=== PATIENT | female | born 1945 | race Caucasian/White ===

== ENCOUNTER 2019-11-11 11:25 | Emergency (ER) | payer MEDICARE, OTHER, SELFPAY ==
[2019-11-11 11:39] VITALS: BP 132/64; PULSE 60; RESP 18; TEMP 36.5; O2SAT 99; BMI 23.1
--- NOTE | 2019-11-11 11:44 | PC.NURSE ---
Patient sent back out to waiting area following triage as no ER rooms are available at this time. Will continue to monitor patient.
[2019-11-11 12:25] LABS: Basophils # 0.1 10^3/uL (0.0-0.1); Basophils % 0.7 %; Eosinophils % 0.2 %; Hematocrit 40.2 % (37.0-47.0); Hemoglobin 12.6 g/dL (11.5-15.3); Lymphocytes # 1.7 10^3/uL (0.8-4.8); Lymphocytes % 19.7 %; Mean Corpuscular HGB Conc 31.3 g/dL (30.0-36.0); Mean Corpuscular Hemoglobin 29.2 pg (28.0-34.0); Mean Corpuscular Volume 93.1 fL (81-99); Mean Platelet Volume 10.5 fL (7.4-10.4); Monocytes # 0.5 10^3/uL (0.2-0.9); Monocytes % 6.1 %; Neutrophils # 6.3 10^3/uL (1.8-7.7); Neutrophils % 73.1 %; Nucleated Red Blood Cells % 0 %; Platelet Count 346 10^3/cmm (130-400); Red Blood Count 4.32 10^6/uL (4.1-5.3); Red Cell Distribution Width 13.4 % (12.1-15.1); White Blood Count 8.7 10^3/uL (4.0-10.0)
[2019-11-11 12:40] LABS: Alanine Aminotransferase 6 U/L (0-33); Albumin Level 3.8 g/dL (3.5-5.2); Alkaline Phosphatase 91 IU/L (35-105); Aspartate Amino Transferase 16 U/L (0-32); Blood Urea Nitrogen 14 mg/dL (8-23); Calcium 9.3 mg/dL (8.5-10.5); Carbon Dioxide 23 mmol/L (22-29); Chloride 104 mmol/L (98-107); Globulin 2.7 g/dL (1.3-4.6); Glucose 103 mg/dL (74-106); Lipase 30 U/L (13-60); Sodium 138 mmol/L (136-145); Total Bilirubin 0.7 mg/dL (0.15-1.2); Total Protein 6.5 g/dL (6.6-8.7)
[2019-11-11 14:33] LABS: Add Urine Microscopic? YES; Bilirubin Urine 1+ (NEGATIVE); Blood Urine Neg (Negative); Glucose Urine UA Norm (Normal); Ketones Urine 2+ (Negative); Leukocyte Esterase Urine Negative (Negative); Nitrate Urine Negative (Negative); Protein Urine 1+ (Negative); Urine Appearance Clear (CLEAR); Urine Color Yellow (Yellow); Urobilinogen Urine 1 mg/dL (Negative); pH Urine 5 (5-7)
[2019-11-11 14:36] LABS: Bacteria Urine 1+; Squamous Epithelial Cell Urine 0-4 (0-5); WBC Urine 0-4 /hpf (0-5)
[2019-11-11 16:17] VITALS: BP 134/53; PULSE 72; RESP 16; TEMP 36.4; O2SAT 98
--- NOTE | 2019-11-11 16:35 | ECG_ITS ---
Measurements Intervals [place] Rate: 60 P: 62 NE: 153 QRS: 3 QRSD: 76 T: 15 QT: 424 QTc: 426 SINUS RHYTHM NONSPECIFIC T-WAVE ABNORMALITY Compared to ECG 04/10/2019 22:18:31 No significant changes Electronically Signed On 11-11-2019 21:02:46 CATALOGUE CLERK by Domonique Simms M.D. [id number]
--- NOTE | 2019-11-11 16:37 | ED_ITS ---
HPI - Nausea/Vomiting/Diarrhea General: Chief complaint: Nausea/Vomiting/Diarrhea Stated complaint: N/V Time Seen by Provider: 11/11/19 16:05 Source: patient Mode of arrival: ambulatory History of Present Illness: MD elicited complaint: nausea and vomiting Onset (ago): week(s) (3) Description of vomiting: watery Description of diarrhea: other (denies diarrhea) Associated nausea: Yes Associated abdominal pain: No Location of pain: None Exacerbating factors: none Relieving factors: none Associated symtoms: Reports altered mental status (pt with history of dementia ), dizziness and nausea; Denies anxiety, bloating, change in vision, chest pain, cough, diaphoresis, decreased urine output, dysuria, headache(s) or palpitations Review of Systems Const: Denies: diaphoresis Eyes: Denies: change in vision Card: Denies: chest pain or palpitations GI: Reports: nausea; Denies: bloating : Denies: painful urination Neuro: Reports: dizziness; Denies: headache Psych: Denies: anxiety PFSH ED PFSH: Statuses (acute, chronic, etc) shown below reflect problem list status as previously entered and may not be historically accurate Social History Smoking and tobacco status: never smoked Physical Exam Const: COMMON NORMALS: no apparent distress and oriented x3 EXAM LIMITATIONS: altered mental status (pt with history of dementia ) and other limitations (dementia) GENERAL APPEARANCE: cooperative; not ill appearing ORIENTATION/CONSCIOUSNESS: Yes awake, Yes oriented to person, Yes oriented to place and Yes oriented to time HENMT: COMMON NORMALS: normocephalic, head/scalp atraumatic, external nose normal, nasal mucous membranes and turbinates normal, moist oral mucous membra heather, oropharynx normal, dentition normal and gingiva normal HEAD & SCALP: normocephalic and atraumatic FACE & SINUS: normal facial exam NOSE: external nose normal and nasal mucous membranes and turbinates normal MOUTH: oral and palatal mucosa normal, lip normal, tongue normal and salivary glands and ducts normal THROAT: posterior oropharynx normal, tonsils normal and uvula midline Eye: COMMON NORMALS: PERRL, EOMs intact bilaterally, conjunctivae normal, no scleral icterus and no papilledema CONJUNCTIVA: Yes conjunctivae normal PUPIL: Yes PERRL DIRECT OPHTHALMOSCOPY: Yes no papilledema Neck/C-Spine: COMMON NORMALS: full ROM, no lymphadenopathy, supple, no meningeal signs and no JVD Chest: COMMONS NORMALS: inspection of chest normal and palpation of chest normal Resp: COMMON NORMALS: normal respiratory effort, no retractions, no use of accessory muscles and clear to auscultation bilaterally AUSCULTATION: clear to auscultation bilaterally Cardio: COMMON NORMALS: no JVD, regular rate and regular rhythm RATE: regular rate RHYTHM: regular rhythm GI: COMMON NORMALS: normal to inspection, nondistended, normoactive bowel sounds, soft to palpation, non-tender, no hepatosplenomegaly, no masses and no bruits PALPATION: Yes soft and Yes no hepatosplenomegaly : COMMON NORMALS: Yes no CVA tenderness and Yes external appearance normal BLADDER/KIDNEY EXAM: Yes no CVA tenderness Back/Pelvis: COMMON NORMALS: no CVA tenderness, thoracic and lumbar spine normal to inspection, no thoracic nor lumbar tenderness and thoraco-lumbar ROM normal Extremity: COMMON NORMALS: normal to inspection, full ROM and normal capillary refill Neuro: COMMON NORMALS: oriented x3, CN's II-XII intact bilaterally, moves all extremities, no focal motor deficits and no sensory deficits noted SENSORIUM/ORIENTATION: Yes oriented to person, Yes oriented to place and Yes oriented to time MENINGEAL SIGNS: Yes no meningeal signs Psych: COMMON NORMALS: mental status grossly normal, thought process normal, cooperative, affect normal, speech normal, activity/motor behavior normal, denies hallucinations, denies homicidal ideation and denies suicidal ideation SPEECH: Yes normal speech THOUGHT PROCESS: normal thought process Skin: COMMON NORMALS: no rashes or lesions noted, no wounds, skin turgor normal, no jaundice, no petechiae and no mottling GENERAL SKIN EXAM: no ra shes or lesions noted and turgor normal Course ED course: Patient is well-appearing nontoxic in no acute distress. Patient's labs do not reveal any concerning findings. Patient's EKG shows a sinus rhythm with a ventricular rate of 60 bpm patient was given 500 mL's of normal saline as well as Zofran 4 mg IV. Patient did have clinical improvement with this. Patient did not have any episodes of vomiting while in the emergency department patient tolerated p.o. fluids without difficulty. Patient does not have any chest pain or shortness of breath patient is afebrile. Patient states her doctor recently took her off of Zantac and put her on Pepcid and she is wondering if this is causing her nausea. pulls me to side and states that she has Alzheimer's and is not sure if she is actively vomiting or if this is related to her dementia. Patient's orthostatics were negative. I have advised patient to advance her diet as tolerated. To call her PCP in a.m. and discuss any needed med changes. Return precautions advised home care instructions reviewed. Patient does not have any abdominal pain or back pain. Patient does not have any blood in her vomit or stool. Patient does not have any urinary symptoms. Vital Signs: Vital signs: Vital Signs Temperature 97.6 F 11/11/19 16:17 Pulse Rate 71 11/11/19 17:14 Respiratory Rate 16 11/11/19 16:17 Blood Pressure 137/90 11/11/19 17:14 Pulse Oximetry 98 11/11/19 16:17 MDM - Nausea/Vomiting/Diarrhea Lab Data: Labs: Lab Results 11/11/19 11/11/19 11/11/19 Range/Units 12:13 12:13 14:06 WBC 8.7 (4.0-10.0) 10^3/ uL RBC 4.32 (4.1-5.3) 10^6/u L Hgb 12.6 (11.5-15.3) g/dL Hct 40.2 (37.0-47.0) % MCV 93.1 (81-99) fL MCH 29.2 (28.0-34.0) pg MCHC 31.3 (30.0-36.0) g/dL RDW 13.4 (12.1-15.1) % Plt Count 346 (130-400) 10^3/c mm MPV 10.5 H (7.4-10.4) fL Neut % (Auto) 73.1 % Lymph % (Auto) 19.7 % [place] % (Auto) 6.1 % Eos % (Auto) 0.2 % Baso % (Auto) 0.7 % Neut # (Auto) 6.3 (1.8-7.7) 10^3/u L Lymph # (Auto) 1.7 (0.8-4.8) 10^3/u L [place] # (Auto) 0.5 (0.2-0.9) 10^3/u L Eos # (Auto) 0.0 (0.0-0.8) 10^3/u L Baso # (Auto) 0.1 (0.0-0.1) 10^3/u L Nucleated RBC % (a uto) 0 % Nucleated RBCs # 0.0 /100WBC Sodium 138 (136-145) mmol/L Potassium 4.0 (3.5-5.1) mmol/L Chloride 104 (98-107) mmol/L Carbon Dioxide 23 (22-29) mmol/L Anion Gap 15.0 (5-19) BUN 14 (8-23) mg/dL Creatinine 0.8 (0.5-0.9) mg/dL Glucose 103 (74-106) mg/dL Calcium 9.3 (8.5-10.5) mg/dL Total Bilirubin 0.7 (0.15-1.2) mg/dL AST 16 (0-32) U/L ALT 6 (0-33) U/L Alkaline Phosphata se 91 (35-105) IU/L Total Protein 6.5 L (6.6-8.7) g/dL Albumin 3.8 (3.5-5.2) g/dL Globulin 2.7 (1.3-4.6) g/dL Lipase 30 (13-60) U/L Urine Color Yellow (Yellow) Urine Appearance Clear (CLEAR) Urine pH 5 (5-7) Ur Specific Gravit y 1.030 (1.005-1.030) Urine Protein 1+ H (Negative) Urine Glucose (UA) Norm (Normal) Urine Ketones 2+ H (Negative) Urine Occult Blood Neg (Negative) Urine Nitrate Negative (Negative) Urine Bilirubin 1+ H (NEGATIVE) Urine Urobilinogen 1 H (Negative) mg/dL Ur Leukocyte Alecia ase Negative (Negative) Urine RBC None (0-2) /hpf Urine WBC 0-4 H (0-5) /hpf Ur Squamous Epith Cells 0-4 H (0-5) Urine Bacteria 1+ H (NONE) Discharge Plan Discharge Patient Disposition: Home, Self-Care Clinical Impression: Gastroenteritis Condition: Stable Referrals: Rashida Bernstein MD [Primary Care Provider] - Discharge Diet: Advance as tolerated Discharge Activity: Resume usual activity Patient Instructions: Acute Nausea and Vomiting (ED) Activity Restrictions/Additional Instructions: Please call your PCP tomorrow to inform of visit. Please eat a bland diet for next few days and then advance as tolerated Please continue to take meds as prescribed Please return to ER with any worsening of symptoms Coding Level of Care Code ED Punch Machine Hand for Rina Fuentes
[2019-11-11 17:14] VITALS: BP 118/77; BP 137/90; BP 138/68; PULSE 60; PULSE 71; PULSE 72
[2019-11-11] MEDS: ondansetron 2 mg/ML SDV 2 mL 4 MG IVP (17:20)
[2019-11-11] MEDS: sodium chloride 0.9% 500 ML IV (17:25)
[2019-11-11 18:26] VITALS: BP 126/76; PULSE 57; RESP 16; TEMP 37.3; O2SAT 100
== END 2019-11-11 18:28 | disposition home or self-care (01) ==
PROVIDERS: Physician Assistant; Emergency Provider Registered Nurse; Family Provider Family Medicine; PCP Family Medicine
DX: K52.9 Noninfective gastroenteritis and colitis, unspecified (principal)
CPT/HCPCS: 36415; 80053; 81001; 83690; 85025; 93005; 96360; 96361; 96374; 99283; A9270; J2405; J7040

== ENCOUNTER 2020-01-28 17:52 | Emergency (ER) | payer MEDICARE, OTHER, SELFPAY ==
[2020-01-28 17:57] VITALS: BP 147/75; PULSE 67; RESP 18; TEMP 36.4; O2SAT 100; BMI 23.1
--- NOTE | 2020-01-28 18:08 | XR_ITS ---
WS: [id number] LUMBAR SPINE TECHNIQUE: 3 views of the lumbar spine CLINICAL INFORMATION: back pain COMPARISON: None. FINDINGS: Mild lumbar curve convex left. Osteopenia. Cholecystectomy clips. Slight anterolisthesis L5 on S1. Sl ight anterolisthesis L3 on L4. Disc space narrowing worse at L3-L4 and L5-S1. Moderate facet arthropa thy L5-S1. Chronic anterior anterior wedging T12. XR/XR lumbar spine 2-3V* [id number] IMPRESSION: 1. Mild lumbar curve convex left. 2. No acute appearing lumbar compression fractures. 3. Moderate spondylitic changes with mild disc space narrowing L3-L4 and L5-S1 . 4. Grade 1 anterolisthesis L5 on S1.
--- NOTE | 2020-01-28 18:08 | XR_ITS ---
WS: [id number] THORACIC SPINE TECHNIQUE: 3 views of the thoracic spine CLINICAL INFORMATION: back pain COMPARISON: None. FINDINGS: Thoracic curve convex right. Hypertrophic changes thoracic spine. Moderate thoracic kyphosis. Hypertr ophic changes thoracic spine. Mild chronic anterior wedging in the upper thoracic spine. No acute lucita earing compression fractures. Calcified granuloma right lower lobe. Aortic calcification. Cholecystec lyle clips. XR/XR thoracic spine 3V* [id number] IMPRESSION: 1. No acute thoracic spine findings 2. Mild thoracic curve convex right with mild thoracic kyphosis. 3. Moderate spondylitic changes.
--- NOTE | 2020-01-28 18:09 | ED_ITS ---
HPI - Back Pain/Injury General: Chief Complaint: Back Pain/Injury Stated Complaint: BACK PAIN Time Seen by Provider: 01/28/20 17:59 Source: patient Mode of arrival: EMS Limitations: no limitations History of Present Illness: HPI Narrative: Patient is a very nice 75-year-old female who presents to ED today via EMS for complaints of back pain. Patient tells me earlier today she laid down on the floor to take a nap (patient tells me this is normal for her as she likes to lie on the floor for her naps) and when she awoke she had mid to lower back pain. Patient tells me she has had this pain intermittently over the past few months and states it will normally subside on its own. She describes the pain as spasm-like when it does come on. There is no radiation into her lower extremities. She does not complain of abdominal or chest pains. She states since she has awoken from her nap, apart from her back pain, she feels completely normal. MD elicited complaint: back pain Pertinent past history: prior back pain Onset (ago): hour(s) Timing: intermittent Severity: mild Similar Symptoms Previously: Yes Quality: spasming Location: lumbar spine (upper) and thoracic spine (lower) Radiation: none Exacerbating factors: none Relieving factors: none Associated symptoms: Reports no associated symptoms; Deny abdominal pain, chills, difficulty walking, dysuria, fever(s), nausea, syncope, urinary urgency or vomiting Work related injury: No Review of Systems General: Reports: 10 or more systems reviewed and unremarkable except in HPI and below Const: Denies: fever or chills Eyes: Denies: change in vision or blurry vision Card: Denies: chest pain, palpitations, irregular heart rhythm, edema, swellin g of feet/ankles, lightheadedness, syncope, pre-syncope, shortness of breath on exertion, shortness of breath when lying down, leg pain with exertion or bluish discoloration of hands/feet Resp: Denies: shortness of breath, productive cough, non-productive cough, pain on inspiration, coughing up blood or chest congestion GI: Denies: abdominal pain, nausea, vomiting or diarrhea : Denies: flank pain, difficulty urinating, painful urination, urinary frequency, urinary urgency or urinary hesitancy Musc: Reports: back pain; Denies: neck pain, extremity pain, extremity swelling, joint pain, joint swelling or limited range of motion Skin/Breast: Denies: rash Neuro: Denies: headache, numbness in extremities, weakness in extremities, changes in sensation, lack of coordination, difficulty walking, frequent falls, dizziness, confusion or slurred speech PFSH ED PFSH: Social History Smoking and tobacco status: never smoked Physical Exam Const: COMMON NORMALS: no apparent distress, average body habitus, oriented x3, no limitations, healthy appearing, alert and well nourished HENMT: COMMON NORMALS: normocephalic and head/scalp atraumatic HEAD & SCALP: normocephalic and atraumatic Eye: COMMON NORMALS: PERRL and EOMs intact bilaterally PUPIL: Yes PERRL Neck/C-Spine: COMMON NORMALS: full ROM CERVICAL SPINE: Yes cervical ROM normal, No pain with cervical ROM, No cervical spine tenderness and No paracervical muscle tenderness Chest: COMMONS NORMALS: inspection of chest normal and palpation of chest normal Resp: COMMON NORMALS: normal respiratory effort and clear to auscultation bilaterally AUSCULTATION: clear to auscultation bilaterally Cardio: COMMON NORMALS: regular rate and regular rhythm RATE: regular rate RHYTHM: regular rhythm GI: COMMON NORMALS: normal to inspection, nondistended, normoactive bowel sounds, soft to palpation, non-tender, no hepatosplenomegaly and no masses INSPECTION: Yes normal to inspection AUSCULTATION: Yes normoactive bowel sounds PALPATION: Yes soft and Yes no hepatosplenomegaly : COMMON NORMALS: Yes no CVA tenderness BLADDER/KIDNEY EXAM: Yes no CVA tenderness Back/Pelvis: COMMON NORMALS: no CVA tenderness, thoraco-lumbar ROM normal and straight leg raise negative bilaterally OTHER: pt with reported tenderness to lower thoracic/upper lumbar spine; she has no pain with palpation and actually reports that pain feels improved with me rubbing over bilateral paraspinal muscles. Extremity: COMMON NORMALS: normal to inspection, full ROM, normal capillary refill, no clubbing, cyanosis or edema and no pedal edema NARRATIVE EXTREMITY EXAM: pulses throughout intact and equal bilaterally Neuro: COMMON NORMALS: oriented x3 SENSORIUM/ORIENTATION: Yes alert Skin: COMMON NORMALS: no rashes or lesions noted GENERAL SKIN EXAM: no rashes or lesions noted Course Vital Signs: Vital signs: Vital Signs Temperature 97.6 F 01/28/20 17:57 Pulse Rate 67 01/28/20 17:57 Respiratory Rate 18 01/28/20 17:57 Blood Pressure 147/75 01/28/20 17:57 Pulse Oximetry 100 01/28/20 17:57 MDM - Back Pain/Injury MDM Narrative: Medical decision making narrative: pt has had this same intermittent back pain right around her T12 for about 2 months now; this fits clinically with her XR findings of a T12 compression fracture; recommend she follow up with PCP if pain continues to bother her or becomes more severe Imaging Data^: XR thoracic: My impression: questionable compression fx at T12; otherwise no other abnormalities XR lumbar: My impression: more definitive view of T12 compression fx; appears old Discharge Plan Discharge Patient Disposition: Home, Self-Care Clinical Impression: T12 compression fracture Qualifiers: Encounter type: initial encounter Qualified Code(s): S22.080A - Wedge compression fracture of T11-T12 vertebra, initial encounter for closed fracture Condition: Stable Prescriptions: No Action Provera 10 mg Tablet 10 mg PO DAILY RF: 0 Premarin 0.625 mg Tablet 0.625 mg PO DAILY RF: 0 Discharge Orders: Discharge Order (Routine); Ordered 01/28/20 Ordered By: Mandy Samson Referrals: Rashida Bernstein MD [Primary Care Provider] - Discharge Diet: Usual diet Discharge Activity: Increase activity as tolerated Patient Instructions: Fractures - Compression, Vertebral Compression Fracture ( ED) Activity Restrictions/Additional Instructions: Please follow up with your primary care provider if your back continues to bother you. As discussed I did notice a fracture at your T12 vertebra. This is most likely an older fracture and would probably explain the pain you have been having in your back for the last 2 months. Coding Level of Care Code ED Filler Block Inserter Remover for Chg Fwd Exam Comprehensive
[2020-01-28 19:12] VITALS: BP 132/82; PULSE 64; RESP 18; O2SAT 97
== END 2020-01-28 19:14 | disposition home or self-care (01) ==
PROVIDERS: Emergency Provider Physician Assistant; Family Provider Family Medicine; PCP Family Medicine
DX: S22.080A Wedge compression fracture of T11-T12 vertebra, initial encounter for closed fracture (principal); X58.XXXA Exposure to other specified factors, initial encounter
CPT/HCPCS: 12345; 72072; 72100; 99281; 99283

== ENCOUNTER → 2020-01-30 12:31 | Outpatient (BNVA) | payer MEDICARE, OTHER, SELFPAY | PROVIDERS: Family Provider Family Medicine; PCP Family Medicine; Referring Provider Family Medicine; Visit Provider Family Medicine | DX: M47.816 Spondylosis without myelopathy or radiculopathy, lumbar region (principal); R35.0 Frequency of micturition; S22.080A Wedge compression fracture of T11-T12 vertebra, initial encounter for closed fracture; G30.0 Alzheimer's disease with early onset; F02.80 Dementia in other diseases classified elsewhere, unspecified severity, without behavioral disturbance, psychotic disturbance, mood disturbance, and anxiety; N39.0 Urinary tract infection, site not specified; I10 Essential (primary) hypertension | CPT/HCPCS: 81000 ==

== ENCOUNTER 2020-05-27 20:34 | Emergency (ER) | payer MEDICARE, OTHER, SELFPAY ==
[2020-05-27 20:38] VITALS: BP 135/73; PULSE 67; RESP 18; TEMP 36.4; O2SAT 99; BMI 23.1
--- NOTE | 2020-05-27 20:53 | ED_ITS ---
HPI - Extremity Problem General: Chief complaint: Extremity Injury, Lower Stated complaint: HIP PAIN Time Seen by Provider: 05/27/20 20:49 Source: patient Mode of arrival: ambulatory Limitations: no limitations History of Present Illness: HPI Narrative: 75-year-old pleasant elderly female comes in today with complaints of right hip pain. Patient has a history of arthritis in the hip. Patient was seen by Dr. Bernstein last week and had been given some methylprednisolone injection in his office. Patient today comes in due to continued pain in the hip. Patient does have a history of Alzheimer's 2. Patient is oriented to place and person but does not recall going to see Dr. Bernstein last week. Reviewing Dr. Bernstein remarks it does note that he is concerned for patient's Alzheimer's. Patient reports that she had taken 1 Tylenol today for her pain. Patient is able to lift leg off the bed without difficulty. Review of Systems General: Reports: 10 or more systems reviewed and unremarkable except in HPI and below Musc: Reports: joint pain (right hip) [facility] ED PFSH: Medical History (Updated 05/27/20 @ 21:38 by GRANT Mendez) Early onset Alzheimer's dementia Hypertension Osteoarthritis Social History Smoking and tobacco status: never smoked Alcohol intake: never Physical Exam Const: COMMON NORMALS: no acute distress and patient oriented x3 GENERAL APPEARANCE: cooperative HENMT: COMMON NORMALS: normocephalic and Normal external nose present HEAD & SCALP: normal to inspection and normocephalic NOSE: Normal external nose present MOUTH: Normal oral and palatal mucosa present Eye: GENERAL EYE: appearance normal, both eyes and all related structures Neck/C-Spine: COMMON NORMALS: full ROM Lymph: LYMPHATIC: no lymphadenopathy noted Chest: COMMONS NORMALS: normal inspection of the chest Resp: COMMON NORMALS: normal respiratory effort EFFORT & INSPECTION: Yes able to speak in complete sentences Cardio: COMMON NORMALS: regular rate and regular rhythm RATE: regular rate RHYTHM: regular rhythm GI: COMMON NORMALS: non-tender Back/Pelvis: COMMON NORMALS: thoracic and lumbar spine normal to inspection Extremity: NARRATIVE EXTREMITY EXAM: Able to manipulate and move hip without any difficulty. Patient states pain is mainly when she stands on it. No crepitus is noted in the joint. Neuro: COMMON NORMALS: patient oriented x3 and moves all extremities Psych: COMMON NORMALS: mental status grossly normal and cooperative Skin: COMMON NORMALS: no rashes or lesions noted GENERAL SKIN EXAM: no rashes or lesions noted Course Vital Signs: Vital signs: Vital Signs Temperature 97.6 F 05/27/20 20:38 Pulse Rate 67 05/27/20 20:38 Respiratory Rate 18 05/27/20 20:38 Blood Pressure 135/73 05/27/20 20:38 Pulse Oximetry 99 05/27/20 20:38 MDM - Extremity (Nontraumatic) MDM Narrative: Medical decision making narrative: Patient was brought in by EMS per due to her having difficulty ambulating at home. Patient has a right hip osteoarthritis. She has been to her primary care for similar compla ints. was concerned due to her increased difficulty with ambulating. On exam patient has good mobility of the hip but has pain with ambulation. Pulses are intact. No signs of redness or swelling is noted to the lower extremity. Vital signs are normal. Differential diagnosis includes but not limited to osteoarthritis of the hip, sciatica, fracture. X-ray of the hip and pelvis noted no acute fractures. Patient does have some osteoarthritis in the hip. Patient also has some chronic back problems. Discussed with patient's in depth about care of the patient he requested a wheelchair for further assistance at home. I do believe patient probably would benefit from a wheelchair for in-home manipulation and moving to get to and from the bathroom. I also encourage patient to stay as ambulatory as possible. I will arrange for patient to follow-up with orthopedist for further evaluation and consideration of other treatment options to help with her hip pain. Spouse reported understanding and agreed to plan along with patient understanding. Discharge Plan Discharge Patient Disposition: Home Clinical Impression: Osteoarthritis of right hip Qualifiers: Osteoarthritis type: unspecified Qualified Code(s): M16.11 - Unilateral primary osteoarthritis, right hip Condition: Stable Prescriptions: No Action aspirin 325 mg tablet 325 mg PO DAILY RF: 0 Premarin 0.625 mg tablet 0.625 mg PO DAILY RF: 0 donepezil 10 mg tablet 10 mg PO DAILY Qty: 90 RF: 3 methylprednisolone acetate 80 mg/mL suspension 80 mg IM ONCE Qty: 1 RF: 0 ciprofloxacin HCl [Cipro] 250 mg tablet 250 mg PO BID Qty: 14 RF: 0 famotidine [Heartburn Relief (famotidine)] 20 mg tablet 20 mg PO BID 90 Days Qty: 180 RF: 3 sulindac 200 mg tablet 200 mg PO BID Qty: 60 RF: 2 Provera 10 mg Tablet 10 mg PO DAILY RF: 0 Referrals: Rashida Bernstein MD [Primary Care Provider] - Discharge Diet: Usual diet Discharge Activity: Increase activity as tolerated Patient Instructions: Osteoarthritis (ED) Activity Restrictions/Additional Instructions: Activity as tolerated. Encourage patient to get up and ambulate as much as possible. Continue with medications as ordered by primary care. Use acetaminophen, Tylenol, 1000 mg every 6 hours as needed for breakthrough pain. Encourage plenty of water with medications. Follow-up with orthopedist. Case management will contact you regarding appointment follow-up with orthopedist. The orthopedist may suggest localized steroid injections in order to improve mobility. Expect the case management call within 2 days. If you do not hear back from the case management by tomorrow contact the ER charge nurse for assistance. Return to the emergency department for new concerns. Talk with your primary care provider, Dr. Bernstein, for further instruction and recommendations. Coding Level of Care Code ED County Engineer for Chg Fwd Exam Comprehensive
--- NOTE | 2020-05-27 20:53 | XR_ITS ---
WS: [id number] EXAM: AP PELVIS AND 2 VIEWS OF THE RIGHT HIP DATE OF EXAMINATION: 05/27/2020, 2108 hours COMPARISON: None. HISTORY: Patient is 75 years old with right hip pain. No known trauma. FINDINGS: Bone density is decreased. DEXA scan correlation is recommended. There are findings of arthritis in t he lower lumbar spine. Slight arthritis within both SI joints. The right hip joint does not show appr eciable degenerative change. No fracture, lytic or blastic process. No soft tissue abnormality noted. XR/XR hip RT 2-3V wo/w pel* [id number] IMPRESSION: No acute bony trauma. Arthritis lower lumbar spine and both SI joints. Profound decreased bone density.
[2020-05-27] MEDS: ketorolac 30 mg/mL INJ IM (21:51)
[2020-05-27] MEDS: acetaminophen 500 mg Tablet 1000 MG PO (23:10)
[2020-05-27 23:11] VITALS: BP 124/68; PULSE 68; RESP 18; O2SAT 98
--- NOTE | 2020-05-28 14:40 | DCPLANNER ---
manager sql had message to schedule a follow up appointment for patient with ortho. manager sql called the ortho clinic, spoke with Pat, gave clinic patients information. manager sql was told that patients information would be printed and reviewed. Clinic will call patient with appointment information.
--- NOTE | 2020-06-09 15:11 | DCPLANNER ---
Patient has a follow up appointment scheduled for Monday, June 29, [address] at 9:[address] Huff. Clinic will call patient with appointment information.
--- NOTE | 2020-07-06 08:20 | DCPLANNER ---
Patient had a follow up appointment scheduled for 06.29.20 with ortho - patient did attend the appointment.
== END 2020-05-27 23:12 | disposition home or self-care (01) ==
PROVIDERS: Emergency Provider Nurse Practitioner Family; PCP Family Medicine
DX: M16.11 Unilateral primary osteoarthritis, right hip (principal); Z79.82 Long term (current) use of aspirin; I10 Essential (primary) hypertension; G30.0 Alzheimer's disease with early onset; F02.80 Dementia in other diseases classified elsewhere, unspecified severity, without behavioral disturbance, psychotic disturbance, mood disturbance, and anxiety
CPT/HCPCS: 12345; 73502; 96372; 96374; 99281; 99283; J1885

== ENCOUNTER → 2020-06-29 08:46 | Outpatient (BNVA) | payer MEDICARE, OTHER, SELFPAY | PROVIDERS: PCP Family Medicine; Referring Provider Family Medicine; Visit Provider Specialist | DX: M25.551 Pain in right hip (principal) | CPT/HCPCS: 73502 ==

== ENCOUNTER 2020-07-01 06:00 | Outpatient (RCR) | payer MEDICARE, OTHER, SELFPAY | END 2020-07-08 23:59 | disposition home or self-care (01) | LOC: TPT 06:00 | PROVIDERS: PCP Family Medicine; Referring Provider Specialist; Visit Provider Specialist | DX: M25.551 Pain in right hip (principal) | CPT/HCPCS: 97110; 97161 ==

== ENCOUNTER 2020-07-08 09:53 | Inpatient (IN) | payer MEDICARE, OTHER, SELFPAY ==
[2020-07-08] VITALS (12 sets, daily range): BP systolic 102–146; BP diastolic 61–78; PULSE 60–127; RESP 12–20; TEMP 36.3–36.6; O2SAT 97–100; BMI 22.3
--- NOTE | 2020-07-08 10:05 | XRR_ITS ---
PROCEDURE INFORMATION: Exam: XR Chest, 1 View Exam date and time: 07/08/2020 10:39 AM Age: 75 years old Clinical indication: Shortness of breath and other: Syncope TECHNIQUE: Imaging protocol: XR of the chest Views: 1 view. COMPARISON: CR Chest 1 [place] [id number] 04/10/2019 9:53 PM FINDINGS: Lungs: Emphysema Calcified granuloma right mid lung new Lungs are well aerated without a focal area of consolidation. Pleural space: Mild apical pleural thickening more pronounced on the right Heart/Mediastinum: Unremarkable. No cardiomegaly. Bones/joints: Unremarkable. XR/XR chest 1V portable [id number] IMPRESSION: Lungs are well aerated without a focal area of consolidation.
--- NOTE | 2020-07-08 10:05 | CT_ITS ---
WS: [id number] CT CERVICAL SPINE HISTORY: fall/syncope TECHNIQUE: Contiguous 2.5 mm axial imaging performed through the entire cervical spine. Sagittal and coronal reformats also performed. All CT scans at [facility] use at least one of these do se optimization techniques: automated exposure control; mA and/or kV adjustment per patient size (inc ludes targeted exams where dose is matched to clinical indication); or iterative reconstruction. DLP: 241.6 mGy.cm COMPARISON: None available. Slight increase in the cervical lordosis. Craniocervical junction is normal. Posterior alignment is n ormal. Moderate disc space narrowing throughout the entire cervical spine. Most significant degenerat melita changes at C5-6 and C6-7. 3 mm anterolisthesis of C7. Lateral masses are aligned odontoid is inta ct. Multilevel, asymmetric facet joint arthritis and bony hypertrophy, greatest on the LEFT. 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 Severe LEFT foraminal stenosis C3-4 and C4-5. Mild bilateral foraminal stenosis at C5-6 and C6-7. Biapical pleural thickening and scarring. CT/CT cervical spin wo con* [id number] IMPRESSION: 1. No cervical spine fracture. 2. Moderate degenerative changes in the cervical spine and disc. Most signific ant stenosis on the LEFT at C3-4 and C4-5.
--- NOTE | 2020-07-08 10:05 | CT_ITS ---
WS: [id number] CT HEAD NONCONTRAST HISTORY: trauma/fall/syncope TECHNIQUE: Contiguous axial imaging performed through the brain in 2.5 mm imaging. Bone and soft tiss ue windows. Sagittal and coronal reformats reviewed. All CT scans at [facility] use at le ast one of these dose optimization techniques: automated exposure control; mA and/or kV adjustment pe r patient size (includes targeted exams where dose is matched to clinical indication); or iterative r econstruction. DLP: 707.81 mGy.cm COMPARISON: 09/27/2016 No acute intracranial hemorrhage, midline shift or mass effect. Moderate atrophy with severe chronic microvascular ischemic disease. Prior remote lacunar infarct in the RIGHT caudate head and anterior basal ganglia. There is confluent low attenuation within the whit e matter. Ventricles: Ventricles and extra-axial spaces are prominent on the basis of atrophy. Paranasal sinuses: As visualized are clear. Mastoid air cells: Well pneumatized. Calvarium and scalp: Skull is intact with no soft tissue edema or swelling. CT/CT head wo con* [id number] IMPRESSION: 1. No acute intracranial hemorrhage. 2. Severe chronic white matter disease and prior lacunar infarct RIGHT basal g anglia and caudate head. Mild progression of chronic disease.
--- NOTE | 2020-07-08 10:06 | ECG_ITS ---
[facility] Test Date: 2020-07-08 Pat Name: Manda Crystal Department: Room: 250 Gender: Female Autotransfusionist: : 1945 Requested By: Mandy Samson Order Number: [id number] Heidy MD: Jasmeet Grant M.D. Measurements Intervals [place] Rate: 67 P: 81 [place]: 170 QRS: 40 QRSD: 81 T: -66 QT: 401 QTc: 423 Interpretive Statements SINUS RHYTHM NONSPECIFIC T-WAVE ABNORMALITY Compared to ECG 11/11/2019 17:04:42 No significant changes Electronically Signed On 07-08-2020 18:36:19 CDT by Jasmeet Grant M.D. [email or web address]
--- NOTE | 2020-07-08 10:07 | W.ED.SYNCOPE ---
Documented by User: ALVARADO Funez 07/08/20 13:56 HPI - Syncope General: Chief Complaint: Syncope Stated Complaint: syncope, vomiting Time Seen by Provider: 07/08/20 09:57 Source: patient and EMS Mode of arrival: EMS Limitations: no limitations History of Present Illness: HPI narrative: Patient is a nice 75-year-old female who presents to ED today via EMS for evaluation following a syncopal episode. According to EMS who obtained history from patient's , patient was on the toilet earlier this morning when the heard her fall. When he went to check on the patient she had fallen from the toilet and was unconscious. EMS states that reported unconsciousness lasting approximately 1 to 2 minutes. He was able to help the patient to the bed but reports that since the fall she has been very weak. Patient also had one episode of vomiting following the syncopal event. Patient does not complain of any physical pain currently. She is alert to her name, , location, 's name, address. She does have a history of Alzheimer's. Patient's has now arrived and provides direct history to myself which contradicts history that I had initially obtained from EMS. Patient tells me he was in the bathroom with his while she was on the toilet. states that she had just had a bowel movement and urinated when she began to feel lightheaded and dizzy. got her a wet cool towel to place on her neck. states that she got presyncopal but never passed out. She never fell off the toilet. He tells me over the past few days she has not wanted to eat or drink anything and has been sleeping more than normal. complaint: loss of consciousness Onset (ago): minute(s) Duration of episode: 2 -: minutes(s) Witnessed: No Context: other (while on toilet-unknown whether pt was defecating prior to event) Associated symptoms: Reports no associated symptoms; Deny abdominal pain, chest pain, fever(s), headache(s), nausea or vertigo Treatments prior to arrival: none Review of Systems Const: Denies: fever(s) or chills Eyes: Denies: change in vision or blurry vision Card: Reports: syncope; Denies: chest pain, palpitations, irregular heart rhythm, edema or pre-syncope Resp: Denies: dyspnea, productive cough, pain on inspiration, hemoptysis or chest congestion GI: Reports: vomiting (x 1); Denies: abdominal pain, nausea, heartburn or diarrhea : Denies: flank pain, difficulty voiding, dysuria, urinary frequency, urinary urgency or urinary hesitancy Musc: Denies: neck pain, back pain or joint pain Skin/Breast: Denies: rash Neuro: Reports: other (generalized weakness); Denies: headache(s) or vertigo PFSH ED PFSH: Medical History (Updated 07/09/20 @ 16:46 by Santiago Scott MD) Early onset Alzheimer's dementia Enrolled in chronic care management GERD (gastroesophageal reflux disease) Hypertension Osteoarthritis Surgical History (Updated 07/08/20 @ 16:43 by Santiago Scott MD) History of cholecystectomy History of tonsillectomy History of total knee replacement (TKR) Family History (Updated 07/08/20 @ 16:42 by Santiago Scott MD) Denies family history of Chronic kidney disease (CKD) Cancer Social History (Updated 07/08/20 @ 16:42 by Santiago Scott MD) Smoking and tobacco status: never smoked Alcohol intake: never Lives independently: No Household members: spouse Housing: House Physical Exam Const: COMMON NORMALS: average body habitus, patient oriented x3 and alert GENERAL APPEARANCE: cooperative and frail appearing ORIENTATION/CONSCIOUSNESS: Yes awake, Yes oriented to person, Yes oriented to place and Yes Other orientation findings (does not know date but knows location, address, 's name) HENMT: COMMON NORMALS: normocephalic and atraumatic HEAD & SCALP: normal to inspection, normocephalic and atraumatic FACE & SINUS: normal facial exam and sinuses nontender Eye: COMMON NORMALS: Equal, round and reactive pupils present and EOMs intact bilaterally GENERAL EYE: appearance normal, both eyes and all related structures PUPIL: Yes Equal, round and reactive pupils present Neck/C-Spine: CERVICAL SPINE: Yes cervical ROM normal and No Cervical spine tenderness Chest: COMMONS NORMALS: normal inspection of the chest and normal palpation of entire chest wall Resp: COMMON NORMALS: normal respiratory effort and clear to auscultation bilaterally AUSCULTATION: clear to auscultation bilaterally Cardio: COMMON NORMALS: regular rate and regular rhythm RATE: regular rate RHYTHM: regular rhythm GI: COMMON NORMALS: Normal to inspection, nondistended, normoactive bowel sounds present, Soft to palpation, non-tender, No hepatosplenomegaly present and no masses PALPATION: Yes Soft to palpation and Yes No hepatosplenomegaly present Extremity: GENERAL: Yes normal exam except as noted Neuro: SPENCER COMA SCALE: document GCS findings Spencer coma scale eye opening: Spontaneous Spencer coma scale verbal response: Orientated Spencer coma scale motor response: Obey commands [place] coma scale total score: 15 COMMON NORMALS: patient oriented x3, CN's II-XII intact bilaterally, moves all extremities, no focal motor deficits and no sensory deficits noted SENSORIUM/ORIENTATION: Yes alert, Yes oriented to person and Yes oriented to place SPEECH: speech normal Course Vital Signs: Vital signs: Vital Signs Temperature 97.5 F L 07/10/20 16:59 Pulse Rate 76 07/10/20 16:59 Respiratory Rate 16 07/10/20 16:59 Blood Pressure 124/71 07/10/20 16:59 Pulse Oximetry 97 07/10/20 15:40 MDM - Syncope MDM Narrative: Medical decision making narrative: According to the patient has not wanted to eat or drink much over the past 5 to 6 days. He states she has been very weak. During her visit today she was not able to ambulate and states she normally is ambulatory with the help of a walker. On her labs she has a 17.5 white count with a probable UTI. She has signs of dehydration. She does have an elevated T bili at 2.3. She is not complaining of abdominal pain, vomiting, diarrhea. Patient most likely would benefit from coming into the hospital as I fear her may not be able to care for her at home. I have spoken to Dr. Archer who will see/evaluate patient and speak to hospitalist for admission. Lab Data: Labs: Lab Results 07/08/20 07/08/20 07/08/20 Range/Units 09:15 10:41 10:41 WBC Corrected WBC RBC Hgb Hct MCV MCH MCHC RDW Plt Count MPV Gran % Neut % (Auto) Lymph % (Auto) [place] % (Auto) Eos % (Auto) Baso % (Auto) Neut # (Auto) Lymph # (Auto) [place] # (Auto) Eos # (Auto) Baso # (Auto) Absolute Gran (aut o) Nucleated RBC % (a uto) Nucleated RBCs # Sodium (136-145) mmol/L Potassium (3.5-5.1) mmol/L Chloride (98-107) mmol/L Carbon Dioxide (22-29) mmol/L Anion Gap (5-19) BUN (8-23) mg/dL Creatinine (0.5-0.9) mg/dL GFR Calculation Glucose (65-115) mg/dL Calculated Osmolal ity (285-295) mOsm/k g Lactic Acid (0.5-2.2) mmol/L Calcium (8.5-10.5) mg/dL Magnesium (1.7-2.3) mg/dL Iron (37-145) ug/dL TIBC mcg/dl % Saturation (20-50) % Unsat Iron Binding (112-347) ug/dL Total Bilirubin (0.15-1.2) mg/dL AST (0-32) U/L ALT (0-33) U/L Alkaline Phosphata se (35-105) IU/L Troponin T Baselin e (0-10) ng/L Troponin T [address] [place] (0-10) ng/L Delta Troponin T (0-10) ABS# Total Protein (6.6-8.7) g/dL Albumin (3.5-5.2) g/dL Globulin (1.3-4.6) g/dL Vitamin B12 152 L (232-1245) pg/mL Procalcitonin (0-0.5) ng/mL TSH (0.27-4.20) uIU/ mL Prolactin (4.8-23.3) ng/mL Urine Color Dark yellow (Yellow) Urine Appearance Clear (CLEAR) Urine pH 6 (5-7) Ur Specific Gravit y 1.020 (1.005-1.030) Urine Protein 1+ H (Negative) Urine Glucose (UA) Norm (Normal) Urine Ketones 2+ H (Negative) Urine Blood 2+ H (Negative) Urine Nitrate Negative (Negative) Urine Bilirubin 1+ H (Negative) Urine Urobilinogen 8 H (Negative) mg/dL Ur Leukocyte Alecia ase Trace H (Negative) Urine RBC 10-15 H (0-2) /hpf Urine WBC 15-25 H (0-5) /hpf Ur Squamous Epith Cells 0-4 H (0-5) /hpf Ur Transition Epit h Cell 0-4 /hpf Amorphous Sediment Not Reportable Urine Bacteria 1+ H (NONE) /hpf Hyaline Casts 0-4 H /lpf Fine Granular Cast s 0-4 H /lpf Urine Opiates Scre en Negative (Negative) ng/mL Ur Barbiturates Sc reen Negative (Negative) ng/mL Ur Phencyclidine S crn Negative (Negative) ng/mL Ur Amphetamines Sc reen Negative (Negative) ng/mL U Benzodiazepines Scrn Negative (Negative) ng/mL Urine Cocaine Scre en Negative (Negative) ng/mL U Marijuana (THC) Screen Negative (Negative) ng/mL RPR Nonreactive (Nonreactive) Hepatitis A IgM Ab (Nonreactive) Hep Bs Antigen (Nonreactive) Hep B Core IgM Ab (Nonreactive) Hepatitis C Antibo dy (Nonreactive) 07/08/20 07/08/20 07/08/20 Range/Units 10:50 10:50 10:50 WBC Cancelled Corrected WBC Cancelled RBC Cancelled Hgb Cancelled Hct Cancelled MCV Cancelled MCH Cancelled MCHC Cancelled RDW Cancelled Plt Count Cancelled MPV Cancelled Gran % Cancelled Neut % (Auto) Cancelled Lymph % (Auto) Cancelled [place] % (Auto) Cancelled Eos % (Auto) Cancelled Baso % (Auto) Cancelled Neut # (Auto) Cancelled Lymph # (Auto) Cancelled [place] # (Auto) Cancelled Eos # (Auto) Cancelled Baso # (Auto) Cancelled Absolute Gran (aut o) Cancelled Nucleated RBC % (a uto) Cancelled Nucleated RBCs # Cancelled Sodium 141 (136-145) mmol/L Potassium 3.7 (3.5-5.1) mmol/L Chloride 98 (98-107) mmol/L Carbon Dioxide 20 L (22-29) mmol/L Anion Gap 26.7 H (5-19) BUN 29 H (8-23) mg/dL Creatinine 1.1 H (0.5-0.9) mg/dL GFR Calculation Not Reportable Glucose 97 (65-115) mg/dL Calculated Osmolal ity 298 H (285-295) mOsm/k g Lactic Acid (0.5-2.2) mmol/L Calcium 9.9 (8.5-10.5) mg/dL Magnesium 2.1 (1.7-2.3) mg/dL Iron (37-145) ug/dL TIBC mcg/dl % Saturation (20-50) % Unsat Iron Binding (112-347) ug/dL Total Bilirubin 2.3 H (0.15-1.2) mg/dL AST 19 (0-32) U/L ALT 10 (0-33) U/L Alkaline Phosphata se 106 H (35-105) IU/L Troponin T Baselin e 26 H (0-10) ng/L Troponin T [address] [place] (0-10) ng/L Delta Troponin T (0-10) ABS# Total Protein 5.8 L (6.6-8.7) g/dL Albumin 3.6 (3.5-5.2) g/dL Globulin 2.2 (1.3-4.6) g/dL Vitamin B12 (232-1245) pg/mL Procalcitonin (0-0.5) ng/mL TSH (0.27-4.20) uIU/ mL Prolactin (4.8-23.3) ng/mL Urine Color (Yellow) Urine Appearance (CLEAR) Urine pH (5-7) Ur Specific Gravit y (1.005-1.030) Urine Protein (Negative) Urine Glucose (UA) (Normal) Urine Ketones (Negative) Urine Blood (Negative) Urine Nitrate (Negative) Urine Bilirubin (Negative) Urine Urobilinogen (Negative) mg/dL Ur Leukocyte Alecia ase (Negative) Urine RBC (0-2) /hpf Urine WBC (0-5) /hpf Ur Squamous Epith Cells (0-5) /hpf Ur Transition Epit h Cell /hpf Amorphous Sediment Urine Bacteria (NONE) /hpf Hyaline Casts /lpf Fine Granular Cast s /lpf Urine Opiates Scre en (Negative) ng/mL Ur Barbiturates Sc reen (Negative) ng/mL Ur Phencyclidine S crn (Negative) ng/mL Ur Amphetamines Sc reen (Negative) ng/mL U Benzodiazepines Scrn (Negative) ng/mL Urine Cocaine Scre en (Negative) ng/mL U Marijuana (THC) Screen (Negative) ng/mL RPR (Nonreactive) Hepatitis A IgM Ab (Nonreactive) Hep Bs Antigen (Nonreactive) Hep B Core IgM Ab (Nonreactive) Hepatitis C Antibo dy (Nonreactive) 07/08/20 07/08/20 07/08/20 Range/Units 10:50 10:50 10:50 WBC Corrected WBC RBC Hgb Hct MCV MCH MCHC RDW Plt Count MPV Gran % Neut % (Auto) Lymph % (Auto) [place] % (Auto) Eos % (Auto) Baso % (Auto) Neut # (Auto) Lymph # (Auto) [place] # (Auto) Eos # (Auto) Baso # (Auto) Absolute Gran (aut o) Nucleated RBC % (a uto) Nucleated RBCs # Sodium (136-145) mmol/L Potassium (3.5-5.1) mmol/L Chloride (98-107) mmol/L Carbon Dioxide (22-29) mmol/L Anion Gap (5-19) BUN (8-23) mg/dL Creatinine (0.5-0.9) mg/dL GFR Calculation Glucose (65-115) mg/dL Calculated Osmolal ity (285-295) mOsm/k g Lactic Acid (0.5-2.2) mmol/L Calcium (8.5-10.5) mg/dL Magnesium (1.7-2.3) mg/dL Iron 105 (37-145) ug/dL TIBC 197 mcg/dl % Saturation 53.2 H (20-50) % Unsat Iron Binding 92 L (112-347) ug/dL Total Bilirubin (0.15-1.2) mg/dL AST (0-32) U/L ALT (0-33) U/L Alkaline Phosphata se (35-105) IU/L Troponin T Baselin e (0-10) ng/L Troponin T [address] [place] (0-10) ng/L Delta Troponin T (0-10) ABS# Total Protein (6.6-8.7) g/dL Albumin (3.5-5.2) g/dL Globulin (1.3-4.6) g/dL Vitamin B12 (232-1245) pg/mL Procalcitonin 0.09 (0-0.5) ng/mL TSH 2.21 Cancelled (0.27-4.20) uIU/ mL Prolactin (4.8-23.3) ng/mL Urine Color (Yellow) Urine Appearance (CLEAR) Urine pH (5-7) Ur Specific Gravit y (1.005-1.030) Urine Protein (Negative) Urine Glucose (UA) (Normal) Urine Ketones (Negative) Urine Blood (Negative) Urine Nitrate (Negative) Urine Bilirubin (Negative) Urine Urobilinogen (Negative) mg/dL Ur Leukocyte Alecia ase (Negative) Urine RBC (0-2) /hpf Urine WBC (0-5) /hpf Ur Squamous Epith Cells (0-5) /hpf Ur Transition Epit h Cell /hpf Amorphous Sediment Urine Bacteria (NONE) /hpf Hyaline Casts /lpf Fine Granular Cast s /lpf Urine Opiates Scre en (Negative) ng/mL Ur Barbiturates Sc reen (Negative) ng/mL Ur Phencyclidine S crn (Negative) ng/mL Ur Amphetamines Sc reen (Negative) ng/mL U Benzodiazepines Scrn (Negative) ng/mL Urine Cocaine Scre en (Negative) ng/mL U Marijuana (THC) Screen (Negative) ng/mL RPR (Nonreactive) Hepatitis A IgM Ab Non-reactive (Nonreactive) Hep Bs Antigen Non-reactive (Nonreactive) Hep B Core IgM Ab Non-reactive (Nonreactive) Hepatitis C Antibo dy Non-reactive (Nonreactive) 07/08/20 07/08/20 07/08/20 Range/Units 10:50 11:37 13:00 WBC 17.5 H Corrected WBC RBC 4.51 Hgb 14.0 Hct 43.3 MCV 96.0 MCH 31.0 MCHC 32.3 RDW 17.1 H Plt Count 206 MPV 12.4 H Gran % Neut % (Auto) 80.5 Lymph % (Auto) 8.1 [place] % (Auto) 7.3 Eos % (Auto) 0.5 Baso % (Auto) 0.7 Neut # (Auto) 14.04 H Lymph # (Auto) 1.4 [place] # (Auto) 1.3 H Eos # (Auto) 0.1 Baso # (Auto) 0.1 Absolute Gran (aut o) Nucleated RBC % (a uto) 0.1 Nucleated RBCs # 0.0 Sodium (136-145) mmol/L Potassium (3.5-5.1) mmol/L Chloride (98-107) mmol/L Carbon Dioxide (22-29) mmol/L Anion Gap (5-19) BUN (8-23) mg/dL Creatinine (0.5-0.9) mg/dL GFR Calculation Glucose (65-115) mg/dL Calculated Osmolal ity (285-295) mOsm/k g Lactic Acid (0.5-2.2) mmol/L Calcium (8.5-10.5) mg/dL Magnesium (1.7-2.3) mg/dL Iron (37-145) ug/dL TIBC mcg/dl % Saturation (20-50) % Unsat Iron Binding (112-347) ug/dL Total Bilirubin (0.15-1.2) mg/dL AST (0-32) U/L ALT (0-33) U/L Alkaline Phosphata se (35-105) IU/L Troponin T Baselin e (0-10) ng/L Troponin T [address] [place] 25.47 H (0-10) ng/L Delta Troponin T -0.53 L (0-10) ABS# Total Protein (6.6-8.7) g/dL Albumin (3.5-5.2) g/dL Globulin (1.3-4.6) g/dL Vitamin B12 (232-1245) pg/mL Procalcitonin (0-0.5) ng/mL TSH (0.27-4.20) uIU/ mL Prolactin 17.13 (4.8-23.3) ng/mL Urine Color (Yellow) Urine Appearance (CLEAR) Urine pH (5-7) Ur Specific Gravit y (1.005-1.030) Urine Protein (Negative) Urine Glucose (UA) (Normal) Urine Ketones (Negative) Urine Blood (Negative) Urine Nitrate (Negative) Urine Bilirubin (Negative) Urine Urobilinogen (Negative) mg/dL Ur Leukocyte Alecia ase (Negative) Urine RBC (0-2) /hpf Urine WBC (0-5) /hpf Ur Squamous Epith Cells (0-5) /hpf Ur Transition Epit h Cell /hpf Amorphous Sediment Urine Bacteria (NONE) /hpf Hyaline Casts /lpf Fine Granular Cast s /lpf Urine Opiates Scre en (Negative) ng/mL Ur Barbiturates Sc reen (Negative) ng/mL Ur Phencyclidine S crn (Negative) ng/mL Ur Amphetamines Sc reen (Negative) ng/mL U Benzodiazepines Scrn (Negative) ng/mL Urine Cocaine Scre en (Negative) ng/mL U Marijuana (THC) Screen (Negative) ng/mL RPR (Nonreactive) Hepatitis A IgM Ab (Nonreactive) Hep Bs Antigen (Nonreactive) Hep B Core IgM Ab (Nonreactive) Hepatitis C Antibo dy (Nonreactive) 07/08/20 Range/Units 13:00 WBC Corrected WBC RBC Hgb Hct MCV MCH MCHC RDW Plt Count MPV Gran % Neut % (Auto) Lymph % (Auto) [place] % (Auto) Eos % (Auto) Baso % (Auto) Neut # (Auto) Lymph # (Auto) [place] # (Auto) Eos # (Auto) Baso # (Auto) Absolute Gran (aut o) Nucleated RBC % (a uto) Nucleated RBCs # Sodium (136-145) mmol/L Potassium (3.5-5.1) mmol/L Chloride (98-107) mmol/L Carbon Dioxide (22-29) mmol/L Anion Gap (5-19) BUN (8-23) mg/dL Creatinine (0.5-0.9) mg/dL GFR Calculation Glucose (65-115) mg/dL Calculated Osmolal ity (285-295) mOsm/k g Lactic Acid 2.0 (0.5-2.2) mmol/L Calcium (8.5-10.5) mg/dL Magnesium (1.7-2.3) mg/dL Iron (37-145) ug/dL TIBC mcg/dl % Saturation (20-50) % Unsat Iron Binding (112-347) ug/dL Total Bilirubin (0.15-1.2) mg/dL AST (0-32) U/L ALT (0-33) U/L Alkaline Phosphata se (35-105) IU/L Troponin T Baselin e (0-10) ng/L Troponin T [address] [place] (0-10) ng/L Delta Troponin T (0-10) ABS# Total Protein (6.6-8.7) g/dL Albumin (3.5-5.2) g/dL Globulin (1.3-4.6) g/dL Vitamin B12 (232-1245) pg/mL Procalcitonin (0-0.5) ng/mL TSH (0.27-4.20) uIU/ mL Prolactin (4.8-23.3) ng/mL Urine Color (Yellow) Urine Appearance (CLEAR) Urine pH (5-7) Ur Specific Gravit y (1.005-1.030) Urine Protein (Negative) Urine Glucose (UA) (Normal) Urine Ketones (Negative) Urine Blood (Negative) Urine Nitrate (Negative) Urine Bilirubin (Negative) Urine Urobilinogen (Negative) mg/dL Ur Leukocyte Alecia ase (Negative) Urine RBC (0-2) /hpf Urine WBC (0-5) /hpf Ur Squamous Epith Cells (0-5) /hpf Ur Transition Epit h Cell /hpf Amorphous Sediment Urine Bacteria (NONE) /hpf Hyaline Casts /lpf Fine Granular Cast s /lpf Urine Opiates Scre en (Negative) ng/mL Ur Barbiturates Sc reen (Negative) ng/mL Ur Phencyclidine S crn (Negative) ng/mL Ur Amphetamines Sc reen (Negative) ng/mL U Benzodiazepines Scrn (Negative) ng/mL Urine Cocaine Scre en (Negative) ng/mL U Marijuana (THC) Screen (Negative) ng/mL RPR (Nonreactive) Hepatitis A IgM Ab (Nonreactive) Hep Bs Antigen (Nonreactive) Hep B Core IgM Ab (Nonreactive) Hepatitis C Antibo dy (Nonreactive) Imaging Data^: CT Head: Radiologist's impression: [place] [address] CT Scan Report Signed Patient: Manda Crystal Unit #: [id number] : 1945 Age/Sex: 75 / F ADM Date: 07/08/20 Loc: ER Room/Bed: Attending Dr: Ordering Provider/Ordering MD: Mandy Samson Date of Service: 07/08/20 Procedure(s): CT head wo con* [id number] Accession Number(s): [id number] Report Number: [id number] WS: [id number] CT HEAD NONCONTRAST HISTORY: trauma/fall/syncope TECHNIQUE: Contiguous axial imaging performed through the brain in 2.5 mm imaging. Bone and soft tissue windows. Sagittal and coronal reformats reviewed. All CT scans at [facility] use at least one of these dose optimization techniques: automated exposure control; mA and/or kV adjustment per patient size (includes targeted exams where dose is matched to clinical indication); or iterative reconstruction. DLP: 707.81 mGy.cm COMPARISON: 09/27/2016 No acute intracranial hemorrhage, midline shift or mass effect. Moderate atrophy with severe chronic microvascular ischemic disease. Prior remote lacunar infarct in the RIGHT caudate head and anterior basal ganglia. There is confluent low attenuation within the white matter. Ventricles: Ventricles and extra-axial spaces are prominent on the basis of atrophy. Paranasal sinuses: As visualized are clear. Mastoid air cells: Well pneumatized. Calvarium and scalp: Skull is intact with no soft tissue edema or swelling. CT/CT head wo con* [id number] IMPRESSION: 1. No acute intracranial hemorrhage. 2. Severe chronic white matter disease and prior lacunar infarct RIGHT basal ganglia and caudate head. Mild progression of chronic disease. Dictated By: Melody Hart DO Signed By: Melody Hart DO Signed Date/Time: 07/08/201104 DD/ 110 CT cervical : Radiologist's impression: [place] [address] CT Scan Report Signed Patient: Manda Crystal Unit #: [id number] : 1945 Age/Sex: 75 / F ADM Date: 07/08/20 Loc: ER Room/Bed: Attending Dr: Ordering Provider/Ordering MD: Mandy Samson Date of Service: 07/08/20 Procedure(s): CT cervical spin wo con* [id number] Accession Number(s): [id number] Report Number: [id number] WS: [id number] CT CERVICAL SPINE HISTORY: fall/syncope TECHNIQUE: Contiguous 2.5 mm axial imaging performed through the entire cervical spine. Sagittal and coronal reformats also performed. All CT scans at [facility] use at least one of these dose optimization techniques: automated exposure control; mA and/or kV adjustment per patient size (includes targeted exams where dose is matched to clinical indication); or iterative reconstruction. DLP: 241.6 mGy.cm COMPARISON: None available. Slight increase in the cervical lordosis. Craniocervical junction is normal. Posterior alignment is normal. Moderate disc space narrowing throughout the entire cervical spine. Most significant degenerative changes at C5-6 and C6-7. 3 mm anterolisthesis of C7. Lateral masses are aligned odontoid is intact. Multilevel, asymmetric facet joint arthritis and bony hypertrophy, greatest on the LEFT. 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 Severe LEFT foraminal stenosis C3-4 and C4-5. Mild bilateral foraminal stenosis at C5-6 and C6-7. Biapical pleural thickening and scarring. CT/CT cervical spin wo con* [id number] IMPRESSION: 1. No cervical spine fracture. 2. Moderate degenerative changes in the cervical spine and disc. Most significant stenosis on the LEFT at C3-4 and C4-5. Dictated By: Melody Hart DO Signed By: Melody Hart DO Signed Date/Time: 07/08/20 1114 DD/ 1109 CXR: Radiologist's impression: [place] [address] XRay Report Signed Patient: Manda Crystal Unit #: [id number] : 1945 Age/Sex: 75 / F ADM Date: 07/08/20 Loc: ER Room/Bed: Attending Dr: Ordering Provider/Ordering MD: Mandy Samson Date of Service: 07/08/20 Procedure(s): XR chest 1V portable [id number] Accession Number(s): [id number] Report Number: [id number] PROCEDURE INFORMATION: Exam: XR Chest, 1 View Exam date and time: 07/08/2020 10:39 AM Age: 75 years old Clinical indication: Shortness of breath and other: Syncope TECHNIQUE: Imaging protocol: XR of the chest Views: 1 view. COMPARISON: CR Chest 1 [place] [id number] 04/10/2019 9:53 PM FINDINGS: Lungs: Emphysema Calcified granuloma right mid lung new Lungs are well aerated without a focal area of consolidation. Pleural space: Mild apical pleural thickening more pronounced on the right Heart/Mediastinum: Unremarkable. No cardiomegaly. Bones/joints: Unremarkable. XR/XR chest 1V portable [id number] IMPRESSION: Lungs are well aerated without a focal area of consolidation. Dictated By: Mane Canas MD Signed By: Mane Canas MD Signed Date/Time: 07/08/20 1207 DD/ 1206 Discharge Plan Discharge Patient Disposition: Admitted As Inpatient Admit Provider: Santiago Scott Clinical Impression: Hyperbilirubinemia, Generalized weakness, Acute dehydration Acute cystitis Qualifiers: Hematuria presence: with hematuria Qualified Code(s): N30.01 - Acute cystitis with hematuria Condition: Stable Referrals: [facility] ([facility]) [Outside] Rashida Bernstein MD [Primary Care Provider] - 7-10 days Db Corrales MD [Physician] - 4-7 days (Chronic left hydronephrosis without any sign of infection) Jamar Olson MD [Physician] - 2 weeks Discharge Diet: Regular and GI Soft Discharge Activity: Resume usual activity Additional Instructions: Aricept has been stopped. Patient is to take Zyprexa 2.5 mg in morning and Remeron 15 mg at night. Please take high calorie diet along with Ensure. Discharge Date/Time: 07/08/20 13:58 Coding Level of Care Code ED Senior Sas Programmer for Chg Fwd Exam Comprehensive Documented by User: Jayro Archer DO 07/14/20 07:13 HPI - Syncope General: Chief Complaint: Syncope Stated Complaint: syncope, vomiting Time Seen by Provider: 07/08/20 09:57 PFSH ED PFSH: Medical History (Updated 07/09/20 @ 16:46 by Santiago Scott MD) Early onset Alzheimer's dementia Enrolled in chronic care management GERD (gastroesophageal reflux disease) Hypertension Osteoarthritis Surgical History (Updated 07/08/20 @ 16:43 by Santiago Scott MD) History of cholecystectomy History of tonsillectomy History of total knee replacement (TKR) Family History (Updated 07/08/20 @ 16:42 by Santiago Scott MD) Denies family history of Chronic kidney disease (CKD) Cancer Social History (Updated 07/08/20 @ 16:42 by Santiago Scott MD) Smoking and tobacco status: never smoked Alcohol intake: never Lives independently: No Household members: spouse Housing: House Course Vital Signs: Vital signs: Vital Signs Temperature 97.5 F L 07/10/20 16:59 Pulse Rate 76 07/10/20 16:59 Respiratory Rate 16 07/10/20 16:59 Blood Pressure 124/71 07/10/20 16:59 Pulse Oximetry 97 07/10/20 15:40 MDM - Syncope MDM Narrative: Medical decision making narrative: 75-year-old female who presented to the emergency room with acute cystitis and exacerbation of her dementia. Reviewed case with Mandy Samson will go ahead and admit her to the hospital. Have discussed with Dr. Calderon he will be attending. Admission orders written. Lab Data: Labs: Lab Results 07/08/20 07/08/20 07/08/20 Range/Units 09:15 10:41 10:41 WBC Corrected WBC RBC Hgb Hct MCV MCH MCHC RDW Plt Count MPV Gran % Neut % (Auto) Lymph % (Auto) [place] % (Auto) Eos % (Auto) Baso % (Auto) Neut # (Auto) Lymph # (Auto) [place] # (Auto) Eos # (Auto) Baso # (Auto) Absolute Gran (aut o) Nucleated RBC % (a uto) Nucleated RBCs # Sodium (136-145) mmol/L Potassium (3.5-5.1) mmol/L Chloride (98-107) mmol/L Carbon Dioxide (22-29) mmol/L Anion Gap (5-19) BUN (8-23) mg/dL Creatinine (0.5-0.9) mg/dL GFR Calculation Glucose (65-115) mg/dL Calculated Osmolal ity (285-295) mOsm/k g Lactic Acid (0.5-2.2) mmol/L Calcium (8.5-10.5) mg/dL Magnesium (1.7-2.3) mg/dL Iron (37-145) ug/dL TIBC mcg/dl % Saturation (20-50) % Unsat Iron Binding (112-347) ug/dL Total Bilirubin (0.15-1.2) mg/dL AST (0-32) U/L ALT (0-33) U/L Alkaline Phosphata se (35-105) IU/L Troponin T Baselin e (0-10) ng/L Troponin T [address] [place] (0-10) ng/L Delta Troponin T (0-10) ABS# Total Protein (6.6-8.7) g/dL Albumin (3.5-5.2) g/dL Globulin (1.3-4.6) g/dL Vitamin B12 152 L (232-1245) pg/mL Procalcitonin (0-0.5) ng/mL TSH (0.27-4.20) uIU/ mL Prolactin (4.8-23.3) ng/mL Urine Color Dark yellow (Yellow) Urine Appearance Clear (CLEAR) Urine pH 6 (5-7) Ur Specific Gravit y 1.020 (1.005-1.030) Urine Protein 1+ H (Negative) Urine Glucose (UA) Norm (Normal) Urine Ketones 2+ H (Negative) Urine Blood 2+ H (Negative) Urine Nitrate Negative (Negative) Urine Bilirubin 1+ H (Negative) Urine Urobilinogen 8 H (Negative) mg/dL Ur Leukocyte Alecia ase Trace H (Negative) Urine RBC 10-15 H (0-2) /hpf Urine WBC 15-25 H (0-5) /hpf Ur Squamous Epith Cells 0-4 H (0-5) /hpf Ur Transition Epit h Cell 0-4 /hpf Amorphous Sediment Not Reportable Urine Bacteria 1+ H (NONE) /hpf Hyaline Casts 0-4 H /lpf Fine Granular Cast s 0-4 H /lpf Urine Opiates Scre en Negative (Negative) ng/mL Ur Barbiturates Sc reen Negative (Negative) ng/mL Ur Phencyclidine S crn Negative (Negative) ng/mL Ur Amphetamines Sc reen Negative (Negative) ng/mL U Benzodiazepines Scrn Negative (Negative) ng/mL Urine Cocaine Scre en Negative (Negative) ng/mL U Marijuana (THC) Screen Negative (Negative) ng/mL RPR Nonreactive (Nonreactive) Hepatitis A IgM Ab (Nonreactive) Hep Bs Antigen (Nonreactive) Hep B Core IgM Ab (Nonreactive) Hepatitis C Antibo dy (Nonreactive) 07/08/20 07/08/20 07/08/20 Range/Units 10:50 10:50 10:50 WBC Cancelled Corrected WBC Cancelled RBC Cancelled Hgb Cancelled Hct Cancelled MCV Cancelled MCH Cancelled MCHC Cancelled RDW Cancelled Plt Count Cancelled MPV Cancelled Gran % Cancelled Neut % (Auto) Cancelled Lymph % (Auto) Cancelled [place] % (Auto) Cancelled Eos % (Auto) Cancelled Baso % (Auto) Cancelled Neut # (Auto) Cancelled Lymph # (Auto) Cancelled [place] # (Auto) Cancelled Eos # (Auto) Cancelled Baso # (Auto) Cancelled Absolute Gran (aut o) Cancelled Nucleated RBC % (a uto) Cancelled Nucleated RBCs # Cancelled Sodium 141 (136-145) mmol/L Potassium 3.7 (3.5-5.1) mmol/L Chloride 98 (98-107) mmol/L Carbon Dioxide 20 L (22-29) mmol/L Anion Gap 26.7 H (5-19) BUN 29 H (8-23) mg/dL Creatinine 1.1 H (0.5-0.9) mg/dL GFR Calculation Not Reportable Glucose 97 (65-115) mg/dL Calculated Osmolal ity 298 H (285-295) mOsm/k g Lactic Acid (0.5-2.2) mmol/L Calcium 9.9 (8.5-10.5) mg/dL Magnesium 2.1 (1.7-2.3) mg/dL Iron (37-145) ug/dL TIBC mcg/dl % Saturation (20-50) % Unsat Iron Binding (112-347) ug/dL Total Bilirubin 2.3 H (0.15-1.2) mg/dL AST 19 (0-32) U/L ALT 10 (0-33) U/L Alkaline Phosphata se 106 H (35-105) IU/L Troponin T Baselin e 26 H (0-10) ng/L Troponin T [address] [place] (0-10) ng/L Delta Troponin T (0-10) ABS# Total Protein 5.8 L (6.6-8.7) g/dL Albumin 3.6 (3.5-5.2) g/dL Globulin 2.2 (1.3-4.6) g/dL Vitamin B12 (232-1245) pg/mL Procalcitonin (0-0.5) ng/mL TSH (0.27-4.20) uIU/ mL Prolactin (4.8-23.3) ng/mL Urine Color (Yellow) Urine Appearance (CLEAR) Urine pH (5-7) Ur Specific Gravit y (1.005-1.030) Urine Protein (Negative) Urine Glucose (UA) (Normal) Urine Ketones (Negative) Urine Blood (Negative) Urine Nitrate (Negative) Urine Bilirubin (Negative) Urine Urobilinogen (Negative) mg/dL Ur Leukocyte Alecia ase (Negative) Urine RBC (0-2) /hpf Urine WBC (0-5) /hpf Ur Squamous Epith Cells (0-5) /hpf Ur Transition Epit h Cell /hpf Amorphous Sediment Urine Bacteria (NONE) /hpf Hyaline Casts /lpf Fine Granular Cast s /lpf Urine Opiates Scre en (Negative) ng/mL Ur Barbiturates Sc reen (Negative) ng/mL Ur Phencyclidine S crn (Negative) ng/mL Ur Amphetamines Sc reen (Negative) ng/mL U Benzodiazepines Scrn (Negative) ng/mL Urine Cocaine Scre en (Negative) ng/mL U Marijuana (THC) Screen (Negative) ng/mL RPR (Nonreactive) Hepatitis A IgM Ab (Nonreactive) Hep Bs Antigen (Nonreactive) Hep B Core IgM Ab (Nonreactive) Hepatitis C Antibo dy (Nonreactive) 07/08/20 07/08/20 07/08/20 Range/Units 10:50 10:50 10:50 WBC Corrected WBC RBC Hgb Hct MCV MCH MCHC RDW Plt Count MPV Gran % Neut % (Auto) Lymph % (Auto) [place] % (Auto) Eos % (Auto) Baso % (Auto) Neut # (Auto) Lymph # (Auto) [place] # (Auto) Eos # (Auto) Baso # (Auto) Absolute Gran (aut o) Nucleated RBC % (a uto) Nucleated RBCs # Sodium (136-145) mmol/L Potassium (3.5-5.1) mmol/L Chloride (98-107) mmol/L Carbon Dioxide (22-29) mmol/L Anion Gap (5-19) BUN (8-23) mg/dL Creatinine (0.5-0.9) mg/dL GFR Calculation Glucose (65-115) mg/dL Calculated Osmolal ity (285-295) mOsm/k g Lactic Acid (0.5-2.2) mmol/L Calcium (8.5-10.5) mg/dL Magnesium (1.7-2.3) mg/dL Iron 105 (37-145) ug/dL TIBC 197 mcg/dl % Saturation 53.2 H (20-50) % Unsat Iron Binding 92 L (112-347) ug/dL Total Bilirubin (0.15-1.2) mg/dL AST (0-32) U/L ALT (0-33) U/L Alkaline Phosphata se (35-105) IU/L Troponin T Baselin e (0-10) ng/L Troponin T [address] [place] (0-10) ng/L Delta Troponin T (0-10) ABS# Total Protein (6.6-8.7) g/dL Albumin (3.5-5.2) g/dL Globulin (1.3-4.6) g/dL Vitamin B12 (232-1245) pg/mL Procalcitonin 0.09 (0-0.5) ng/mL TSH 2.21 Cancelled (0.27-4.20) uIU/ mL Prolactin (4.8-23.3) ng/mL Urine Color (Yellow) Urine Appearance (CLEAR) Urine pH (5-7) Ur Specific Gravit y (1.005-1.030) Urine Protein (Negative) Urine Glucose (UA) (Normal) Urine Ketones (Negative) Urine Blood (Negative) Urine Nitrate (Negative) Urine Bilirubin (Negative) Urine Urobilinogen (Negative) mg/dL Ur Leukocyte Alecia ase (Negative) Urine RBC (0-2) /hpf Urine WBC (0-5) /hpf Ur Squamous Epith Cells (0-5) /hpf Ur Transition Epit h Cell /hpf Amorphous Sediment Urine Bacteria (NONE) /hpf Hyaline Casts /lpf Fine Granular Cast s /lpf Urine Opiates Scre en (Negative) ng/mL Ur Barbiturates Sc reen (Negative) ng/mL Ur Phencyclidine S crn (Negative) ng/mL Ur Amphetamines Sc reen (Negative) ng/mL U Benzodiazepines Scrn (Negative) ng/mL Urine Cocaine Scre en (Negative) ng/mL U Marijuana (THC) Screen (Negative) ng/mL RPR (Nonreactive) Hepatitis A IgM Ab Non-reactive (Nonreactive) Hep Bs Antigen Non-reactive (Nonreactive) Hep B Core IgM Ab Non-reactive (Nonreactive) Hepatitis C Antibo dy Non-reactive (Nonreactive) 07/08/20 07/08/20 07/08/20 Range/Units 10:50 11:37 13:00 WBC 17.5 H Corrected WBC RBC 4.51 Hgb 14.0 Hct 43.3 MCV 96.0 MCH 31.0 MCHC 32.3 RDW 17.1 H Plt Count 206 MPV 12.4 H Gran % Neut % (Auto) 80.5 Lymph % (Auto) 8.1 [place] % (Auto) 7.3 Eos % (Auto) 0.5 Baso % (Auto) 0.7 Neut # (Auto) 14.04 H Lymph # (Auto) 1.4 [place] # (Auto) 1.3 H Eos # (Auto) 0.1 Baso # (Auto) 0.1 Absolute Gran (aut o) Nucleated RBC % (a uto) 0.1 Nucleated RBCs # 0.0 Sodium (136-145) mmol/L Potassium (3.5-5.1) mmol/L Chloride (98-107) mmol/L Carbon Dioxide (22-29) mmol/L Anion Gap (5-19) BUN (8-23) mg/dL Creatinine (0.5-0.9) mg/dL GFR Calculation Glucose (65-115) mg/dL Calculated Osmolal ity (285-295) mOsm/k g Lactic Acid (0.5-2.2) mmol/L Calcium (8.5-10.5) mg/dL Magnesium (1.7-2.3) mg/dL Iron (37-145) ug/dL TIBC mcg/dl % Saturation (20-50) % Unsat Iron Binding (112-347) ug/dL Total Bilirubin (0.15-1.2) mg/dL AST (0-32) U/L ALT (0-33) U/L Alkaline Phosphata se (35-105) IU/L Troponin T Baselin e (0-10) ng/L Troponin T [address] [place] 25.47 H (0-10) ng/L Delta Troponin T -0.53 L (0-10) ABS# Total Protein (6.6-8.7) g/dL Albumin (3.5-5.2) g/dL Globulin (1.3-4.6) g/dL Vitamin B12 (232-1245) pg/mL Procalcitonin (0-0.5) ng/mL TSH (0.27-4.20) uIU/ mL Prolactin 17.13 (4.8-23.3) ng/mL Urine Color (Yellow) Urine Appearance (CLEAR) Urine pH (5-7) Ur Specific Gravit y (1.005-1.030) Urine Protein (Negative) Urine Glucose (UA) (Normal) Urine Ketones (Negative) Urine Blood (Negative) Urine Nitrate (Negative) Urine Bilirubin (Negative) Urine Urobilinogen (Negative) mg/dL Ur Leukocyte Alecia ase (Negative) Urine RBC (0-2) /hpf Urine WBC (0-5) /hpf Ur Squamous Epith Cells (0-5) /hpf Ur Transition Epit h Cell /hpf Amorphous Sediment Urine Bacteria (NONE) /hpf Hyaline Casts /lpf Fine Granular Cast s /lpf Urine Opiates Scre en (Negative) ng/mL Ur Barbiturates Sc reen (Negative) ng/mL Ur Phencyclidine S crn (Negative) ng/mL Ur Amphetamines Sc reen (Negative) ng/mL U Benzodiazepines Scrn (Negative) ng/mL Urine Cocaine Scre en (Negative) ng/mL U Marijuana (THC) Screen (Negative) ng/mL RPR (Nonreactive) Hepatitis A IgM Ab (Nonreactive) Hep Bs Antigen (Nonreactive) Hep B Core IgM Ab (Nonreactive) Hepatitis C Antibo dy (Nonreactive) 07/08/20 Range/Units 13:00 WBC Corrected WBC RBC Hgb Hct MCV MCH MCHC RDW Plt Count MPV Gran % Neut % (Auto) Lymph % (Auto) [place] % (Auto) Eos % (Auto) Baso % (Auto) Neut # (Auto) Lymph # (Auto) [place] # (Auto) Eos # (Auto) Baso # (Auto) Absolute Gran (aut o) Nucleated RBC % (a uto) Nucleated RBCs # Sodium (136-145) mmol/L Potassium (3.5-5.1) mmol/L Chloride (98-107) mmol/L Carbon Dioxide (22-29) mmol/L Anion Gap (5-19) BUN (8-23) mg/dL Creatinine (0.5-0.9) mg/dL GFR Calculation Glucose (65-115) mg/dL Calculated Osmolal ity (285-295) mOsm/k g Lactic Acid 2.0 (0.5-2.2) mmol/L Calcium (8.5-10.5) mg/dL Magnesium (1.7-2.3) mg/dL Iron (37-145) ug/dL TIBC mcg/dl % Saturation (20-50) % Unsat Iron Binding (112-347) ug/dL Total Bilirubin (0.15-1.2) mg/dL AST (0-32) U/L ALT (0-33) U/L Alkaline Phosphata se (35-105) IU/L Troponin T Baselin e (0-10) ng/L Troponin T [address] [place] (0-10) ng/L Delta Troponin T (0-10) ABS# Total Protein (6.6-8.7) g/dL Albumin (3.5-5.2) g/dL Globulin (1.3-4.6) g/dL Vitamin B12 (232-1245) pg/mL Procalcitonin (0-0.5) ng/mL TSH (0.27-4.20) uIU/ mL Prolactin (4.8-23.3) ng/mL Urine Color (Yellow) Urine Appearance (CLEAR) Urine pH (5-7) Ur Specific Gravit y (1.005-1.030) Urine Protein (Negative) Urine Glucose (UA) (Normal) Urine Ketones (Negative) Urine Blood (Negative) Urine Nitrate (Negative) Urine Bilirubin (Negative) Urine Urobilinogen (Negative) mg/dL Ur Leukocyte Alecia ase (Negative) Urine RBC (0-2) /hpf Urine WBC (0-5) /hpf Ur Squamous Epith Cells (0-5) /hpf Ur Transition Epit h Cell /hpf Amorphous Sediment Urine Bacteria (NONE) /hpf Hyaline Casts /lpf Fine Granular Cast s /lpf Urine Opiates Scre en (Negative) ng/mL Ur Barbiturates Sc reen (Negative) ng/mL Ur Phencyclidine S crn (Negative) ng/mL Ur Amphetamines Sc reen (Negative) ng/mL U Benzodiazepines Scrn (Negative) ng/mL Urine Cocaine Scre en (Negative) ng/mL U Marijuana (THC) Screen (Negative) ng/mL RPR (Nonreactive) Hepatitis A IgM Ab (Nonreactive) Hep Bs Antigen (Nonreactive) Hep B Core IgM Ab (Nonreactive) Hepatitis C Antibo dy (Nonreactive) Discharge Plan Discharge Patient Disposition: Admitted As Inpatient Admit Provider: Santiago Scott Clinical Impression: Hyperbilirubinemia, Generalized weakness, Acute dehydration Acute cystitis Qualifiers: Hematuria presence: with hematuria Qualified Code(s): N30.01 - Acute cystitis with hematuria Condition: Stable Referrals: [facility]) [Outside] Rashida Bernstein MD [Primary Care Provider] - 7-10 days Db Corrales MD [Physician] - 4-7 days (Chronic left hydronephrosis without any sign of infection) Jamar Olson MD [Physician] - 2 weeks Discharge Diet: Regular and GI Soft Discharge Activity: Resume usual activity Additional Instructions: Aricept has been stopped. Patient is to take Zyprexa 2.5 mg in morning and Remeron 15 mg at night. Please take high calorie diet along with Ensure. Discharge Date/Time: 07/08/20 13:58 Coding Level of Care Code ED Senior Sas Programmer for Chg Fwd Exam Comprehensive
--- NOTE | 2020-07-08 10:20 | PC.NURSE ---
portable xray at bedside
[2020-07-08 11:09] LABS: Add Urine Microscopic? YES; Bilirubin Urine 1+ (Negative); Blood Urine 2+ (Negative); Glucose Urine UA Norm (Normal); Ketones Urine 2+ (Negative); Leukocyte Esterase Urine Trace (Negative); Nitrate Urine Negative (Negative); Protein Urine 1+ (Negative); Urine Appearance Clear (CLEAR); Urine Color Dark Yellow (Yellow); Urobilinogen Urine 8 mg/dL (Negative); pH Urine 6 (5-7)
[2020-07-08 11:12] LABS: Amphetamines Screen Urine Negative (Negative); Barbiturates Screen Urine Negative (Negative); Benzodiazepines Screen Urine Negative (Negative); Cocaine Screen Urine Negative (Negative); Opiate Screen Urine Negative (Negative); PCP Screen Urine Negative (Negative); THC Screen Urine Negative (Negative)
[2020-07-08 11:18] LABS: Bacteria Urine 1+ /hpf; Fine Granular Casts Urine 0-4 /lpf; Hyaline Casts Urine 0-4 /lpf; Squamous Epithelial Cell Urine 0-4 /hpf (0-5); Transitional Epi Cells Urine 0-4 /hpf; WBC Urine 15-25 /hpf (0-5)
[2020-07-08 11:21] LABS: Alanine Aminotransferase 10 U/L (0-33); Albumin Level 3.6 g/dL (3.5-5.2); Alkaline Phosphatase 106 IU/L (35-105); Anion Gap 26.7 (5-19); Aspartate Amino Transferase 19 U/L (0-32); Blood Urea Nitrogen 29 mg/dL (8-23); Calcium 9.9 mg/dL (8.5-10.5); Carbon Dioxide 20 mmol/L (22-29); Chloride 98 mmol/L (98-107); Globulin 2.2 g/dL (1.3-4.6); Glucose 97 mg/dL (65-115); Magnesium 2.1 mg/dL (1.7-2.3); Osmolality Calculated 298 mOsm/kg (285-295); Potassium 3.7 mmol/L (3.5-5.1); Sodium 141 mmol/L (136-145); Total Bilirubin 2.3 mg/dL (0.15-1.2); Total Protein 5.8 g/dL (6.6-8.7)
[2020-07-08 11:24] LABS: Troponin(5th) Baseline 26 ng/L (0-10)
[2020-07-08] MEDS: sodium chloride 0.9% 1,000 ML 999 ML IV (11:39)
[2020-07-08 11:41] LABS: Basophils # 0.1 10^3/uL (0.0-0.1); Basophils % 0.7 %; Eosinophils # 0.1 10^3/uL (0.0-0.8); Eosinophils % 0.5 %; Hematocrit 43.3 % (37.0-47.0); Lymphocytes # 1.4 10^3/uL (0.8-4.8); Lymphocytes % 8.1 %; Mean Corpuscular HGB Conc 32.3 g/dL (30.0-36.0); Mean Platelet Volume 12.4 fL (7.4-10.4); Monocytes # 1.3 10^3/uL (0.2-0.9); Monocytes % 7.3 %; Neutrophils # 14.04 10^3/uL (1.8-7.7); Neutrophils % 80.5 %; Nucleated Red Blood Cells % 0.1 %; Platelet Count 206 10^3/cmm (130-400); Red Blood Count 4.51 10^6/uL (4.1-5.3); Red Cell Distribution Width 17.1 % (12.1-15.1); White Blood Count 17.5 10^3/uL (4.0-10.0)
--- NOTE | 2020-07-08 12:06 | ECG_ITS ---
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 Measurements Intervals [place] Rate: 61 P: 65 DC: 178 QRS: 18 QRSD: 82 T: -32 QT: 409 QTc: 413 Interpretive Statements SINUS RHYTHM NONSPECIFIC T-WAVE ABNORMALITY Compared to ECG 11/11/2019 17:04:42 No significant changes Electronically Signed On 07-08-2020 18:37:41 CDT by Jasmeet Grant M.D. [email or web address]
--- NOTE | 2020-07-08 12:28 | US_ITS ---
WS: [id number] RIGHT UPPER QUADRANT ULTRASOUND HISTORY: jaundice COMPARISON: None available. Liver: 12.3 cm in length. Normal size liver. No bile duct dilatation or mass. Gallbladder: Prior cholecystectomy. CBD: 0.5 cm Pancreas: Normal size and echogenicity. Right kidney: 9.9 cm in length. Normal size and echogenicity. No hydronephrosis or mass. Aorta and IVC: Unremarkable abdominal aorta and IVC. No ascites. US/US gall bladder [id number] IMPRESSION: Prior cholecystectomy. Normal common bile duct. No definite intrahepatic duct d ilatation.
[2020-07-08 13:29] LABS: Troponin 5 2HR 25.47 ng/L (0-10)
[2020-07-08 13:31] LABS: Troponin 5 2HR Delta -0.53 ABS# (0-10)
[2020-07-08] MEDS: sodium chloride 0.9% 1,000 ML 125 ML IV (14:37)
[2020-07-08 14:42] LABS: Hepatitis A Antibody IgM Non-Reactive (Nonreactive); Hepatitis B Core IgM Non-Reactive (Nonreactive); Hepatitis B Surface Antigen Non-Reactive (Nonreactive); Hepatitis C Virus Antibody Non-Reactive (Nonreactive)
[2020-07-08 14:56] LABS: Add Urine Culture? Yes
--- NOTE | 2020-07-08 16:06 | ECG_ITS ---
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 Measurements Intervals [place] Rate: 60 P: 63 NV: 186 QRS: -5 QRSD: 89 T: -50 QT: 466 QTc: 469 Interpretive Statements SINUS RHYTHM NONSPECIFIC T-WAVE ABNORMALITY Compared to ECG 07/08/2020 13:13:55 No significant changes Electronically Signed On 07-08-2020 18:37:48 CDT by Jasmeet Grant M.D. [id number]
--- NOTE | 2020-07-08 16:35 | PM.HP ---
Providers/Chief Complaint Admitting Physician: Santiago Scott MD Primary Care Provider: Rashida Bernstein MD Chief Complaint: SYNCOPE/VOMIT History of Present Illness Manda Crystal is a 75 year old female with past medical history of hypertension, osteoarthritis, Alzheimer's dementia presented to the hospital today with her after having an episode of dizziness while she was having a bowel movement in the bathroom. During that episode patient had a presyncopal event and sat down but did not hit her head anywhere. As per the patient has not been eating anything or drinking anything for last 1 to 2 weeks. As per him patient's appetite has been on the lower side for last 1 month. Patient denies of having nausea, vomiting, headache, dizziness, dysuria, abdominal pain, cough. Patient states she is probably lost some weight. agrees with that. Patient denies of having any depression, suicidal ideation or homicidal ideation. During the event today patient did not have any aura but did have some dizziness prior and after the episode. She did not have any weakness in any of her arms or legs. She did not have any vomiting, frothing from her mouth or bowel or bladder accident around the event. Denies of having any changes in her medications recently. Patient lives with her who is also her caregiver. At baseline she is able to walk on herself. Blood work in the ER showed a white count of 17.5, hemoglobin of 48, platelet count of 206, sodium of 141, creatinine of 1.1 with a BUN of 29, chloride of 98 lactate of 2, bilirubin of 2.3, AST/ALT of 19/10, alkaline phosphatase of 106, UA consistent with dark urine, trace leuk esterase, negative nitrate, at 15-25 WBCs, drug screen was negative. Gallbladder ultrasound was done which showed prior cholecystectomy without any intrahepatic duct dilatation, CT head was done without any acute intracranial hemorrhage, severe chronic white matter disease with prior lacunar infarct at right basal ganglia and caudate. Chest x-ray negative for any consolidation, CT cervical spine without any fracture, moderate degenerative disorder with significant stenosis at left C3-C4-C5 Review of Systems General: Reports: 10 or more systems reviewed and unremarkable except in HPI and below Const: Denies: fever(s), chills, body aches, change in appetite, change in weight, malaise, night sweats, diaphoresis, change in sleep pattern, daytime sleepiness or snoring Eyes: Denies: change in vision, blurry vision, photophobia, eye discomfort or eye discharge ENMT: Denies: throat pain, enlarged tonsils, hoarseness, mouth pain, oral sores, dry mouth, tinnitus, nasal congestion or post nasal drip Card: Denies: chest pain, palpitations, irregular heart rhythm, edema, swelling of feet/ankles, lightheadedness, syncope, pre-syncope, dyspnea on exertion, orthopnea, leg pain with exertion or acrocyanosis Resp: Denies: dyspnea, productive cough, non-productive cough, wheezing, stridor, pain on inspiration, change in phlegm color, hemoptysis or chest congestion GI: Denies: abdominal pain, nausea, vomiting, hematemesis, coffee ground emesis, dysphagia, heartburn, diarrhea, constipation, bloating, GI cramping, change in bowel habits, pain on defecation, hematochezia or melena : Denies: flank pain, dysuria, urinary frequency, urinary urgency, urinary hesitancy, nocturia or hematuria Musc: Denies: neck pain, back pain, extremity pain, joint pain, joint swelling, joint redness, joint stiffness or limited range of motion Neuro: Reports: dizziness; Denies: headache(s), numbness in extremities, weakness in extremities, sensory changes, lack of coordination, difficulty walking, frequent falls, vertigo, confusion, Slurred speech present, difficulty communicating thoughts or seizure-like activity Psych: Reports: anxiety; Denies: depression, mood swings, panic attacks, hopelessness or irritability Endo: Denies: polyuria, polydipsia, tired all the time, cold intolerance, excessive sweating, flushing or heat intolerance Fei/Lymph: Denies: easy bruising or easy bleeding All/Imm: Denies: tongue swelling, facial swelling or acute wheezing Medications/Allergies Home Medications Medication Instructions Recorded Confirmed Last Taken Type famotidine 20 mg tablet 20 mg PO BID 90 Days #180 tab 03/04/20 07/08/20 07/07/20 Rx aspirin 325 mg tablet 325 mg PO DAILY 04/07/20 07/08/20 07/07/20 History donepezil 10 mg tablet 10 mg PO DAILY #90 tab 04/07/20 07/08/20 07/07/20 Rx sulindac 200 mg tablet 200 mg PO BID #60 tab 05/25/20 07/08/20 07/07/20 Rx Zofran 4 mg PO Q8H PRN 07/08/20 07/08/20 Unknown History omeprazole 20 mg PO DAILY 07/08/20 07/08/20 07/07/20 History Allergies Allergy/AdvReac Type Severity Reaction Status Date / Time Penicillins Allergy ALGY-Hives Verified 06/29/20 09:02 PFSH Acute PFSH: Medical History (Updated 07/08/20 @ 16:50 by Santiago Scott MD) Early onset Alzheimer's dementia Enrolled in chronic care management GERD (gastroesophageal reflux disease) Hypertension Osteoarthritis Surgical History (Updated 07/08/20 @ 16:43 by Santiago Scott MD) History of cholecystectomy History of tonsillectomy History of total knee replacement (TKR) Family History (Updated 07/08/20 @ 16:42 by Santiago Scott MD) Denies family history of Chronic kidney disease (CKD) Cancer Social History (Updated 07/08/20 @ 16:42 by Santiago Scott MD) Smoking and tobacco status: never smoked Alcohol intake: never Lives independently: No Household members: spouse Housing: House Vitals/I&O/Wt Last Vital Signs Temp 97.8 F 07/08/20 14:46 Pulse 62 07/08/20 14:46 Resp 18 07/08/20 14:46 BP 139/76 07/08/20 14:46 Pulse Ox 98 07/08/20 14:46 Weight last 48 hrs Weight 58.967 kg Physical Exam Narrative: EXAM NARRATIVE: General: No acute distress, AO x3, cachectic, dehydrated HEENT: PERRLA, pupils bilaterally equal and reactive Chest: Normal vesicular breath sounds, no added sounds, equal good air entry bilaterally CVS: S1-S2 regular, no murmurs, no tachycardia, no gallops, no rubs Abdomen: Soft, nontender, no organomegaly, bowel sounds present Neuro: No focal deficits, no facial deformity, AO x3, power 5/5 in all limbs Data : 07/08/20 11:37 07/08/20 10:50 Micro: Microbiology 07/08/20 13:00 Blood Culture - Preliminary Blood SPECIMEN COLLECTED 07/08/20 10:50 Blood Culture - Preliminary Blood SPECIMEN COLLECTED A&P Assessment and plan (1) Acute dehydration: Status: Acute (2) Generalized weakness: Status: Acute (3) Dizziness: Status: Acute (4) Early onset Alzheimer's dementia: Status: Acute Qualifiers: Dementia behavioral disturbance: without behavioral disturbance Qualified Code(s): G30.0 - Alzheimer's disease with early onset; F02.80 - Dementia in other diseases classified elsewhere without behavioral disturbance (5) Hypertension: Status: Acute Qualifiers: Hypertension type: essential hypertension Qualified Code(s): I10 - Essential (primary) hypertension (6) Hyperbilirubinemia: Status: Acute (7) RAFAEL (acute kidney injury): Status: Acute Additional A&P Information 75-year-old female who comes to the ER with presyncopal event along with decreased appetite and oral intake for last 2 to 3 weeks admitted for acute dehydration, generalized weakness and dizziness. Weakness/dizziness: Most likely because of poor oral intake. Patient appears extremely dehydrated on examination. Patient does have leukocytosis which could be because of hemoconcentration along with untreated urine. Chances of infection are on the lower side. Check procalcitonin, blood culture, urine culture, lactate within normal limits, iron panel, TSH, HbA1c, lipid panel, random cortisol level tomorrow morning, RPR. CT head results from admission appreciated. Patient is moving all 4 limbs for now we will hold off on MRI. If all the blood work comes back within normal limits it is quite possible that patient symptoms of poor oral intake is because of advanced Alzheimer's dementia. Patient denies of having a depression on admission. For now start patient on levofloxacin at renal dose. We will discontinue antibiotics in next 24 to 48 hours if patient remains afebrile. Start patient on D5 half NS with 20 mg of potassium at 75 cc/h. Will monitor for fluid overload. Patient is at high risk for refeeding syndrome. Dietitian consult. Hyperbilirubinemia: Patient is post cholecystectomy. Most likely because of dehydration. Hepatitis panel negative. INR within normal limits. Patient's abdomen is benign on examination. Ultrasound gallbladder appreciated. For now we will continue to monitor. Avoid hypotension. RAFAEL: Most likely because of extreme dehydration from poor oral intake. No electrode abnormality. Continue to monitor electrolytes and BMP daily. Medical reconciliation done for nephrotoxic drugs. Hypertension: Goal blood pressure less than 140/90 mmHg. We will continue to monitor. We will change medication as per the clinical picture. Full code. GI soft diet with Ensure with each meal Famotidine for PUD prophylaxis. Lovenox 30 subcu every 24 hours for DVT prophylaxis. Attestations Medical Necessity Statement*: More than 2 midnights of poor oral intake, dehydration, RAFAEL, presyncope Time Spent in Patient Care: Greater than 35 minutes (>than 50% of time spent in counselling and/or direct pt care on unit). Coding Level of Care Code Acute [employer] for [employer] Diagnoses Acute dehydration E86.0 Generalized weakness R53.1 Dizziness R42 Early onset Alzheimer's dementia G30.0; F02.80 Dementia behavioral disturbance: without behavioral disturbance Hypertension I10 Hypertension type: essential hypertension Hyperbilirubinemia E80.6 RAFAEL (acute kidney injury) N17.9
[2020-07-08] MEDS: levofloxacin-dextrose 5 % 500 MG/100 ML PREMIX 100 MG IV (16:41)
[2020-07-08] MEDS: enoxaparin 40 mg/0.4 mL Syringe SUBCUT (16:42)
[2020-07-08 17:03] LABS: Iron 105 ug/dL (37-145); Percent Saturation 53.2 % (20-50); Procalcitonin 0.09 ng/mL (0-0.5); Thyroid Stimulating Hormone 2.21 uIU/mL (0.27-4.20); Total Iron Binding Capacity 197 mcg/dl; Unsaturated Iron Binding 92 ug/dL (112-347)
[2020-07-08] MEDS: D5-NS 0.45% + KCL 20 mEq 20 MEQ/1,000 ML BAG 50 MEQ IV (18:15)
[2020-07-08] MEDS: famotidine 20 mg Tablet PO (18:15)
[2020-07-08 18:58] LABS: Folate Level 2.5 ng/mL (4.8-37.3)
[2020-07-08 19:08] LABS: Ammonia 23 umol/L (11-51)
[2020-07-08 19:45] LABS: Troponin 5 6HR 27.06 ng/L (0-10)
[2020-07-08 19:48] LABS: Troponin 5 6HR Delta 1.59 ng/L (0-12)
[2020-07-08 20:02] LABS: Prolactin 17.13 ng/mL (4.8-23.3)
[2020-07-08 22:41] LABS: Cortisol Random 14.87 ug/mL (2.47-19.5)
[2020-07-08 22:46] LABS: Vitamin B12 152 pg/mL (232-1245)
[2020-07-08 23:28] LABS: Rapid Plasma Reagin Syphilis Nonreactive (Nonreactive)
[2020-07-09] VITALS (14 sets, daily range): BP systolic 106–144; BP diastolic 62–79; PULSE 68–118; RESP 16–18; TEMP 36.2–36.7; O2SAT 96–98
[2020-07-09] MEDS: ipratropium-albuterol 3 mL Neb INHALATION ×4 (04:14→21:16)
[2020-07-09 05:17] LABS: Basophils # 0.1 10^3/uL (0.0-0.1); Basophils % 0.7 %; Eosinophils # 0.2 10^3/uL (0.0-0.8); Eosinophils % 1.9 %; Hematocrit 33.9 % (37.0-47.0); Hemoglobin 11.1 g/dL (11.5-15.3); Lymphocytes # 1.7 10^3/uL (0.8-4.8); Lymphocytes % 16.5 %; Mean Corpuscular HGB Conc 32.7 g/dL (30.0-36.0); Mean Corpuscular Hemoglobin 30.8 pg (28.0-34.0); Mean Corpuscular Volume 94.2 fL (81-99); Mean Platelet Volume 12.6 fL (7.4-10.4); Monocytes # 0.8 10^3/uL (0.2-0.9); Monocytes % 7.5 %; Neutrophils % 71.1 %; Nucleated Red Blood Cells % 0 %; Platelet Count 174 10^3/cmm (130-400); Red Cell Distribution Width 16.7 % (12.1-15.1); White Blood Count 10.1 10^3/uL (4.0-10.0)
[2020-07-09 05:30] LABS: Estmated Average Glucose 100; Hemoglobin A1C 5.1 % (4.0-6.0)
[2020-07-09 05:42] LABS: Magnesium 1.6 mg/dL (1.7-2.3); Phosphorus 1.8 mg/dL (2.5-4.5)
[2020-07-09 05:43] LABS: Alanine Aminotransferase 7 U/L (0-33); Albumin Level 2.8 g/dL (3.5-5.2); Alkaline Phosphatase 72 IU/L (35-105); Anion Gap 16.2 (5-19); Aspartate Amino Transferase 15 U/L (0-32); Blood Urea Nitrogen 25 mg/dL (8-23); Calcium 8.4 mg/dL (8.5-10.5); Carbon Dioxide 20 mmol/L (22-29); Chloride 106 mmol/L (98-107); Globulin 1.8 g/dL (1.3-4.6); Glucose 92 mg/dL (65-115); Osmolality Calculated 292 mOsm/kg (285-295); Potassium 3.2 mmol/L (3.5-5.1); Sodium 139 mmol/L (136-145); Total Bilirubin 1.5 mg/dL (0.15-1.2); Total Protein 4.6 g/dL (6.6-8.7)
[2020-07-09 06:03] LABS: Cortisol Random 11.48 ug/mL (2.47-19.5)
[2020-07-09] MEDS: donepezil 5 MG Tablet 10 MG PO (08:15)
[2020-07-09] MEDS: famotidine 20 mg Tablet PO (08:16)
[2020-07-09] MEDS: aspirin 325 mg Tablet PO (08:16)
--- NOTE | 2020-07-09 09:23 | CT_ITS ---
WS: [id number] CT CHEST, ABDOMEN AND PELVIS HISTORY: significant weight loss, anorexia TECHNIQUE: Contiguous 5 mm axial imaging performed through the chest, abdomen and pelvis with IV cont rast, oral contrast has not been provided. Coronal and sagittal reformats chest. Coronal and sagittal reformats through the abdomen and pelvis. All CT scans at [facility] use at least one of these dose optimization techniques: automated exposure control; mA and/or kV adjustment per patient size (includes targeted exams where dose is matched to clinical indication); or iterative reconstruct ion. CONTRAST: Omnipaque 300; 75 mL IV. DLP: 977.68 mGy.cm COMPARISON: 04/10/[address]: Very slight elevation of the LEFT hemidiaphragm. No mass or pneumonia. Benign granuloma RIG HT lower lobe. No pericardial or pleural effusions. Pulmonary artery size is equal to the aorta. Hear t size is normal. No adenopathy. Abdomen CT: Extensive hepatic and splenic granulomata. Prior cholecystectomy. No bile duct dilatation . Moderate atrophy of the pancreas. Common bile duct at the pancreatic head is normal. No adrenal mas s. The hypoechoic area in the anterior RIGHT kidney measures 10 mm. May have been present on the prio r study also. There is mild to moderate hydronephrosis on the LEFT. Proximal LEFT ureter is also dila avelina. 6 mm calcification of the proximal ureter with adjacent circumferential ureteral wall thickening . There is also enhancement of the ureteral wall. Ureter distal to this calcification is normal. Tyson ical cyst upper pole LEFT kidney measures 1.2 cm. Mild delayed excretion from the LEFT kidney. Mild atherosclerosis aorta. No retroperitoneal or mesenteric adenopathy. No ascites. There is mild co lonic wall thickening and pericolonic stranding. No obstructive pattern. No discrete mass. A few scat tered diverticula in the sigmoid. Appendix is not definitely visualized. Pelvic CT: Well-distended urinary bladder. Uterus and ovaries are unremarkable as seen by CT. Multiple osteoporotic compression fractures including T8, T12, L3, L4 and L5. Severe compression frac ture T12 by 80% without retropulsion. Diffuse osteopenia. CT/CT chest abd pel w con* IMPRESSION: 1. Mild to moderate LEFT hydronephrosis secondary to a 6 mm calcification in t he proximal ureter. 2. There is significant LEFT periureteral enhancement and thickening in the pr oximal ureter at the site of the calcification. May be postinflammatory. Possib le neoplastic changes should also be considered. 3. Mild diffuse colitis suspected. No obstruction. 4. Prior granulomatous disease and prior cholecystectomy. 5. No pulmonary mass or adenopathy. 6. Multiple osteoporotic compression fractures.
--- NOTE | 2020-07-09 09:28 | P.PN_ITS ---
Subjective Subjective: Interval history: No acute events overnight. Patient having frequent bowel movements and some diarrhea. No nausea, vomiting, headache. Complaining of left hip pain. Patient has remained afebrile, hemodynamically stable, saturating well on room air. Vitals/I&O/Wt Last Vital Signs Temp 97.8 F 07/09/20 07:30 Pulse 89 07/09/20 08:41 Resp 18 07/09/20 08:41 BP 120/68 07/09/20 07:30 Pulse Ox 98 07/09/20 08:41 07/08/20 07/09/20 07/09/20 22:59 06:59 14:59 Intake Total 120 / 120 Output Total 150 / 150 100 / 250 Balance -150 / -150 -100 / -250 120 / 120 Weight last 48 hrs Weight 52.39 kg Weight 58.967 kg Physical Exam Narrative: EXAM NARRATIVE: General: No acute distress, AO x3, cachectic, dehydrated HEENT: PERRLA, pupils bilaterally equal and reactive Chest: Normal vesicular breath sounds, no added sounds, equal good air entry bilaterally CVS: S1-S2 regular, no murmurs, no tachycardia, no gallops, no rubs Abdomen: Soft, nontender, no organomegaly, bowel sounds present Neuro: No focal deficits, no facial deformity, AO x3, power 5/5 in all limbs Data : 07/09/20 04:18 07/09/20 04:18 Micro: Microbiology 07/08/20 10:41 Legionella Urinary Antigen - Final Urethra 07/08/20 13:00 Blood Culture - Preliminary Blood SPECIMEN COLLECTED 07/08/20 10:50 Blood Culture - Preliminary Blood SPECIMEN COLLECTED A&P Assessment and plan (1) Acute dehydration: Status: Acute (2) Generalized weakness: Status: Acute (3) Dizziness: Status: Acute (4) Early onset Alzheimer's dementia: Status: Acute Qualifiers: Dementia behavioral disturbance: without behavioral disturbance Qualified Code(s): G30.0 - Alzheimer's disease with early onset; F02.80 - D ementia in other diseases classified elsewhere without behavioral disturbance (5) Anorexia: Status: Acute (6) Refeeding syndrome: Status: Acute (7) Hypomagnesemia: Status: Acute (8) Hypophosphatemia: Status: Acute (9) RAFAEL (acute kidney injury): Status: Acute (10) Hyperbilirubinemia: Status: Acute (11) Hypertension: Status: Acute Qualifiers: Hypertension type: essential hypertension Qualified Code(s): I10 - Essential (primary) hypertension Additional A&P Information 75-year-old female who comes to the ER with presyncopal event along with decrea sed appetite and oral intake for last 2 to 3 weeks admitted for acute dehydration, generalized weakness and dizziness. Weakness/dizziness: Most likely because of poor oral intake. Patient appears ex tremely dehydrated on examination. Patient's leukocytosis has resolved today. Most likely because of hemoconcentration. Procalcitonin normal, prolactin normal, TSH normal, cortisol level normal julia min B12 and folate levels on the lower side. Will replete vitamin B12 with an IM followed by 500 mcg daily from tomorrow and folic acid 1 mg oral twice daily. Urine drug screen, RPR, hepatitis panel negative. If all the blood work comes back within normal limits it is quite possible that patient symptoms of poor oral intake is because of advanced Alzheimer's dementia. Patient denies of having a depression on admission. Continue levofloxacin at current dose. Blood cultures, urine cultures have remained negative, MRSA negative. Anorexia: Given the extensive anorexia cannot rule out underlying malignancy. CTA chest abdomen pelvis with contrast. Continue D5 half NS with 20 mcg of potassium at 50 cc/h. Continue home dose of Aricept. Ensure with each meal. If patient continues to remain the same we will consult psychiatry.Will start on Zyprexa 5 mg daily. Refeeding syndrome: Patient has multiple electrolyte abnormalities including magnesium, phosphate, potassium. We will replete. Dietitian consult still awaited. Hyperbilirubinemia: Patient is post cholecystectomy. Most likely because of dehydration. Resolving. Hepatitis panel negative. INR within normal limits. Patient's abdomen is benign on examination. Ultrasound gallbladder appreciated. For now we will continue to monitor. Avoid hypotension. RAFAEL: Most likely because of extreme dehydration from poor oral intake. Reso lved. Creatinine normal. No electrode abnormality. Continue to monitor electrolytes and BMP daily. Medical reconciliation done for nephrotoxic drugs. Hypertension: Goal blood pressure less than 140/90 mmHg. We will continue to monitor. We will change medication as per the clinical picture. Full code. GI soft diet with Ensure with each meal Famotidine for PUD prophylaxis. Lovenox 30 subcu every 24 hours for DVT prophylaxis. Patient's care will discussed in detail with her . Attestations Medical Necessity Statement*: Severe anorexia, refeeding syndrome Time Spent in Patient Care: Greater than 35 minutes (>than 50% of time spent in counselling and/or direct pt care on unit) . Coding Level of Care Code Acute [employer] Diagnoses Acute dehydration E86.0 Generalized weakness R53.1 Dizziness R42 Early onset Alzheimer's dementia G30.0; F02.80 Dementia behavioral disturbance: without behavioral disturbance Anorexia R63.0 Refeeding syndrome E87.8 Hypomagnesemia E83.42 Hypophosphatemia E83.39 RAFAEL (acute kidney injury) N17.9 Hyperbilirubinemia E80.6 Hypertension I10 Hypertension type: essential hypertension
[2020-07-09] MEDS: potassium chloride ER 10 mEq Tablet 40 MEQ PO (10:00)
[2020-07-09] MEDS: pantoprazole DR 40 mg Tablet PO (10:00)
--- NOTE | 2020-07-09 10:11 | PC.NURSE ---
[address] FOR [address] SCAN.
[2020-07-09] MEDS: iohexol 300 mg/mL 100 mL Btl IV (10:20)
--- NOTE | 2020-07-09 11:48 | PC.CHAP ---
Pastoral Care Encounter/Spiritual Assessment Type of Contact [] Declined director of research and development visit [] Patient/Family/Request visit [] Outpatient visit [] Follow-up visit [] Physician referral [] Code/Alert [x] Routine visit [] Staff referral [] Actively dying [] Patient sleeping [] Family support [] [] Out of room [] Palliative care [] [x] Receiving care in room [] Pre-surgical visit [] Trauma [] Long length of stay [] ICU visit [] Other: Relational/Emotional Strength [] Patient feels connected with others/family/visitors/staff [x] Distress [] Loneliness/isolation [] Abandonment Spirituality of Patient [x] Person of Jenae [] Attends Jew of their Jenae [x] Believes in Prayer [] Reads Bible or Yarsanism materials [] There are Spiritual issues to be addressed Unit Aide Interventions [x] Prayer [x] Active listening [x] Non-anxious presence [x] Spiritual/emotional support [] Crisis/trauma care [x] Spiritual counseling [] Bereavement support [] Provided bereavement packet [] Provided Bible/devotional materials [] Provided toy/stuffed animal, coloring book to patient or family member [] Provided Communion [] Anointing/Halfway [] Salvation [x] Completed spiritual assessment [] Other: Impact on Illness or Injury [] Angry [] Fearful [x] Anxious [] Often cries [] Exhaustion [] Unable to work [] Unable to attend adventist [] Unable to walk/stand [] Unable to read [] Unable to drive [] Unable to eat/drink [] Unable to sleep [] Unable to be with family [] Patient intubated [] Other: Summary She doesn't know or able to comprehend what her problems are had a good attitude Time spent with patient 10 mins
[2020-07-09] MEDS: ondansetron 2 mg/ML SDV 2 mL 4 MG IVP (14:15)
[2020-07-09 15:16] LABS: Potassium, Radom Urine 52 mmol/L; Urine Random Chloride 66 mmol/L; Urine Random Sodium 44 mmol/L
[2020-07-09] MEDS: acetaminophen 325 mg Tablet 650 MG PO (18:00)
[2020-07-09] MEDS: enoxaparin 30 mg/0.3 mL Syringe SUBCUT (18:00)
[2020-07-09] MEDS: cyanocobalamin 1,000 mcg/mL SDV 1000 MCG IM (18:00)
[2020-07-09] MEDS: folic acid 1 mg Tablet PO (18:01)
[2020-07-09] MEDS: phosphorus 250 mg Tablet PO (18:01)
[2020-07-09] MEDS: magnesium oxide 400 mg tablet PO (18:01)
--- NOTE | 2020-07-09 18:44 | PM.PSYCN ---
Providers/Reason for Consult Consulting Physican/Specialty*: Slava Pedersen M.D./psychiatry Reason for Consult*: Dementia, dehydration and inanition. Attending Physician: Santiago Scott MD Primary Care Provider: Rashida Bernstein MD Psych Consult HPI History of Present Illness Manda Crystal is a 75 year old female who prior to admission dizzy and unsteady while defecating on the toilet. The states she never actually fell but he had to hold her. Upon admission Dr. Scott observed that she was very thin and had a number of metabolic parameters that were off kilter. He further ascertained that she had cognitive deficits commensurate with dementia and requested that I evaluate her and make possible recommendations. Meds Current Medications: Current Medications Generic Name Dose Route Start Last Admin Trade Name Freq PRN Reason Stop Dose Admin Acetaminophen 650 mg 07/08/20 14:08 07/09/20 18:00 Tylenol PO 650 mg Q6H PRN Administration Mild/Mod Pain Or Temp >/= 101 Albuterol/Ipratrop ium 3 ml 07/08/20 21:00 07/09/20 16:00 Duoneb INHALATION 3 ml Q6H.RESPIRATORY S CH Administration Aspirin 325 mg 07/09/20 09:00 07/09/20 08:16 Aspirin PO 325 mg DAILY LATONIA Administration Donepezil HCl 10 mg 07/09/20 09:00 07/09/20 08:15 Aricept PO 10 mg DAILY LATONIA Administration Enoxaparin Sodium 30 mg 07/08/20 17:00 07/09/20 18:00 Lovenox SUBCUT 30 mg Q24H LATONIA Administration Folic Acid 1 mg 07/09/20 18:00 07/09/20 18:01 Folic Acid PO 1 mg BID LATONIA Administration Potassium Chloride /Dextrose/Sod Cl 20 meq in 1,000 m ls @ 50 mls/hr 07/08/20 16:15 07/09/20 14:52 D5-Ns 0.45% + Vincenzo l 20 Meq IV Infused .Q20H LATONIA Infusion Levofloxacin/Dextr ose 500 mg in 100 mls @ 100 mls/hr 07/08/20 17:00 07/08/20 16:41 Levaquin-D5w IV 100 mls/hr Q48H LATONIA Administration Protocol Magnesium Oxide 400 mg 07/09/20 18:00 07/09/20 18:01 Magox PO 400 mg BID LATONIA Administration Non-Formulary Medi cation 200 mg 07/08/20 18:00 07/09/20 18:01 Sulindac PO Not Given BID LATONIA Ondansetron HCl 4 mg 07/08/20 14:08 07/09/20 14:15 Zofran IVP 4 mg Q6H PRN Administration NAUSEA AND VOMITI NG Pantoprazole Sodiu m 40 mg 07/09/20 09:00 07/09/20 10:00 Protonix PO 40 mg DAILY LATONIA Administration Potassium Chloride 40 meq 07/09/20 09:25 07/09/20 10:00 Klor-Con 10 PO 40 meq DAILY LATONIA Administration Potassium Phosphat e 250 mg 07/09/20 18:00 07/09/20 18:01 Phospha 250 Neut ral PO 250 mg BID LATONIA Administration PFSH NPU PFSH: Medical History (Updated 07/09/20 @ 16:46 by Santiago Scott MD) Early onset Alzheimer's dementia Enrolled in chronic care management GERD (gastroesophageal reflux disease) Hypertension Osteoarthritis Surgical History (Updated 07/08/20 @ 16:43 by Santiago Scott MD) History of cholecystectomy History of tonsillectomy History of total knee replacement (TKR) Family History (Updated 07/08/20 @ 16:42 by Santiago Scott MD) Denies family history of Chronic kidney disease (CKD) Cancer Social History (Updated 07/08/20 @ 16:42 by Santiago cSott MD) Smoking and tobacco status: never smoked Alcohol intake: never Lives independently: No Household members: spouse Housing: House Other Psychiatric History: Other Psychiatric History: None acknowledged. Mental Status Exam MSE Comments: This is a 75-year-old female who presents at her stated age. She is very thin as she lies in her hospital bed. Behavior is appropriate when I introduced myself and we began to discuss her life. Mood is calm and euthymic. Affect is appropriate. Thought processes are integrated and free of any racing, blocking or looseness of association. There is no evidence of psychosis, such as but not limited to hallucinations, delusions or ideas of reference. Orientation is poor. She cannot remember the name of this building nor can she remember when her children and grandchildren were born. She could not remember my name for 5 minutes. She does agree that she needs to eat more and says she does not have a problem with anorexia, a surprising bit of insight and judgment as the light fades. She denies suicidal or homicidal ideation, plan or intent. Vitals/I&O/Wt Last Vital Signs Temp 97.6 F 07/09/20 15:38 Pulse 75 07/09/20 16:02 Resp 18 07/09/20 16:01 BP 116/71 07/09/20 15:38 Pulse Ox 97 07/09/20 16:01 07/09/20 07/09/20 07/09/20 07:59 15:59 23:59 Intake Total 1120 480 Output Total 100 Balance -100 1120 480 Weight last 48 hrs Weight 115 lb 8 oz Weight 130 lb Data NPU Micro: Micro: Microbiology 07/08/20 13:00 Blood Culture - Pr eliminary Blood NEGATIVE TO AMANDA E 07/08/20 10:50 Blood Culture - Pr eliminary Blood NEGATIVE TO AMANDA E 07/08/20 17:12 MRSA Culture - Fin al Nose 07/08/20 10:41 Urine Culture - Pr eliminary Urine,Clean Catch 07/08/20 10:41 Legionella Urinary Antigen - Final Urethra Microbiology 07/08/20 13:00 Blood Blood Culture - Preliminary NEGATIVE TO DATE 07/08/20 10:50 Blood Blood Culture - Preliminary NEGATIVE TO DATE 07/08/20 17:12 Nose MRSA Culture - Final 07/08/20 10:41 Urine,Clean Catch Urine Culture - Preliminary 07/08/20 10:41 Urethra Legionella Urinary Antigen - Final A&P Assessment and plan (1) Acute dehydration: The patient's intake will have to be monitored and from here on out. This holds true for refeeding as well as rehydration and repletion of metabolic ailments. Ultimately this will mandate home health care organized by the hospital principal planner. Status: Acute (2) Early onset Alzheimer's dementia: This has already been worked up. Status: Acute Qualifiers: Dementia behavioral disturbance: without behavioral disturbance Qualified Code(s): G30.0 - Alzheimer's disease with early onset; F02.80 - Dementia in other diseases classified elsewhere without behavioral disturbance (3) Anorexia: In addition to careful monitoring, rehydration and feeding, I recommend a very low dose (2.5 mg p.o. nightly) of olanzapine, with caveats relating to orthostasis and increase cardiovascular events. To do nothing is potentially far more dangerous. Status: Acute (4) Refeeding syndrome: See above. Status: Acute Attestations NPU Medical Necessity Statement*: From a psychiatric perspective I anticipate 2 to 3 midnights additional hospital stay. Time Spent in Patient Care: Greater than 35 minutes Patient has significant short-term memory deficit and brief counseling was undertaken but by now may well have been for gotten. 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
[2020-07-10] VITALS (12 sets, daily range): BP systolic 101–131; BP diastolic 58–73; PULSE 69–84; RESP 16–18; TEMP 36.4–37.1; O2SAT 95–100
[2020-07-10] MEDS: ipratropium-albuterol 3 mL Neb INHALATION ×3 (02:39→14:59)
[2020-07-10] MEDS: D5-NS 0.45% + KCL 20 mEq 20 MEQ/1,000 ML BAG 50 MEQ IV (02:48)
[2020-07-10 05:28] LABS: Phosphorus 2.7 mg/dL (2.5-4.5)
[2020-07-10] MEDS: donepezil 5 MG Tablet 10 MG PO (09:22)
[2020-07-10] MEDS: OLANZapine 5 mg TABLET 2.5 MG PO (09:30)
[2020-07-10] MEDS: aspirin 325 mg Tablet PO (09:31)
[2020-07-10] MEDS: pantoprazole DR 40 mg Tablet PO (09:32)
[2020-07-10] MEDS: magnesium oxide 400 mg tablet PO (09:33)
[2020-07-10] MEDS: cyanocobalamin 1,000 mcg Tablet 500 MCG PO (09:34)
[2020-07-10] MEDS: folic acid 1 mg Tablet PO (09:35)
[2020-07-10] MEDS: phosphorus 250 mg Tablet PO (09:36)
[2020-07-10] MEDS: potassium chloride ER 10 mEq Tablet 40 MEQ PO (09:37)
[2020-07-10 09:45] LABS: Alanine Aminotransferase 11 U/L (0-33); Albumin Level 2.8 g/dL (3.5-5.2); Alkaline Phosphatase 86 IU/L (35-105); Anion Gap 14.5 (5-19); Aspartate Amino Transferase 23 U/L (0-32); Blood Urea Nitrogen 20 mg/dL (8-23); Calcium 8.9 mg/dL (8.5-10.5); Carbon Dioxide 22 mmol/L (22-29); Chloride 107 mmol/L (98-107); Globulin 1.8 g/dL (1.3-4.6); Glucose 114 mg/dL (65-115); Osmolality Calculated 293 mOsm/kg (285-295); Potassium 3.5 mmol/L (3.5-5.1); Sodium 140 mmol/L (136-145); Total Protein 4.6 g/dL (6.6-8.7)
--- NOTE | 2020-07-10 10:07 | P.PN_ITS ---
Subjective Subjective: Interval history: No acute events overnight. Patient having frequent bowel movements and some diarrhea. No nausea, vomiting, headache. Complaining of left hip pain. Patient has remained afebrile, hemodynamically stable, saturating well on room air. Vitals/I&O/Wt Last Vital Signs Temp 97.9 F 07/10/20 07:05 Pulse 74 07/10/20 07:49 Resp 18 07/10/20 07:49 BP 131/73 07/10/20 07:05 Pulse Ox 98 07/10/20 07:49 07/09/20 07/10/20 07/10/20 22:59 06:59 14:59 Intake Total 700 / 1820 Balance 700 / 1820 Weight last 48 hrs Weight 52.163 kg Weight 52.39 kg Physical Exam Narrative: EXAM NARRATIVE: General: No acute distress, AO x3, cachectic, dehydrated HEENT: PERRLA, pupils bilaterally equal and reactive Chest: Normal vesicular breath sounds, no added sounds, equal good air entry bilaterally CVS: S1-S2 regular, no murmurs, no tachycardia, no gallops, no rubs Abdomen: Soft, nontender, no organomegaly, bowel sounds present Neuro: No focal deficits, no facial deformity, AO x3, power 5/5 in all limbs Data : 07/09/20 04:18 07/10/20 04:15 Micro: Microbiology 07/08/20 13:00 Blood Culture - Preliminary Blood NEGATIVE TO DATE 07/08/20 10:50 Blood Culture - Preliminary Blood NEGATIVE TO DATE 07/08/20 17:12 MRSA Culture - Final Nose 07/08/20 10:41 Urine Culture - Preliminary Urine,Clean Catch A&P Assessment and plan (1) Acute dehydration: Status: Acute (2) Generalized weakness: Status: Acute (3) Dizziness: Status: Acute (4) Early onset Alzheimer's dementia: Status: Acute Qualifiers: Dementia behavioral disturbance: without behavioral disturbance Qualified Code(s): G30.0 - Alzheimer's disease with early onset; F02.80 - Dementia in other diseases classified elsewhere without behavioral disturbance (5) Anorexia: Status: Acute (6) Refeeding syndrome: Status: Acute (7) Hypomagnesemia: Status: Acute (8) Hypophosphatemia: Status: Acute (9) RAFAEL (acute kidney injury): Status: Acute (10) Hyperbilirubinemia: Status: Acute (11) Hypertension: Status: Acute Qualifiers: Hypertension type: essential hypertension Qualified Code(s): I10 - Essential (primary) hypertension Additional A&P Information 75-year-old female who comes to the ER with presyncopal event along with decreased appetite and oral intake for last 2 to 3 weeks admitted for acute dehydration, generalized weakness and dizziness. Weakness/dizziness: Most likely because of poor oral intake. Patient appears extremely dehydrated on examination. Patient's leukocytosis has resolved today. Most likely because of hemocon centration. Procalcitonin normal, prolactin normal, TSH normal, cortisol level normal vitamin B12 and folate levels on the lower side. Will replete vitamin B12 with an IM followed by 500 mcg daily from tomorrow and folic acid 1 mg oral twice daily. Urine drug screen, RPR, hepatitis panel negative. If all the blood work comes back within normal limits it is quite possible that patient symptoms of poor oral intake is because of advanced Alzheimer's dementia. Patient denies of having a depression on admission. Continue levofloxacin at current dose. Blood cultures, urine cultures have remained negative, MRSA negative. Anorexia: Given the extensive anorexia cannot rule out underlying malignancy. CTA chest abdomen pelvis with contrast. Continue D5 half NS with 20 mcg of potassium at 50 cc/h. Continue home dose of Aricept. Ensure with each meal. If patient continues to remain the same we will consult psychiatry.Will start on Zyprexa 5 mg daily. Refeeding syndrome: Patient has multiple electrolyte abnormalities including magnesium, phosphate, potassium. We will replete. Dietitian consult still awaited. Hyperbilirubinemia: Patient is post cholecystectomy. Most likely because of dehydration. Resolving. Hepatitis panel negative. INR within normal limits. Patient's abdomen is mark ign on examination. Ultrasound gallbladder appreciated. For now we will continue to monitor. Avoid hypotension. RAFAEL: Most likely because of extreme dehydration from poor oral intake. Resolved. Creatinine normal. No electrode abnormality. Continue to monitor electrolytes and BMP daily. Medical reconciliation done for nephrotoxic drugs. Hypertension: Goal blood pressure less than 140/90 mmHg. We will continue to monitor. We will change medication as per the clinical picture. Full code. GI soft diet with Ensure with each meal Famotidine for PUD prophylaxis. Lovenox 30 subcu every 24 hours for DVT prophylaxis. Patient's care will discussed in detail with her . 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
--- NOTE | 2020-07-10 10:34 | PC.NURSE ---
delightful patient this morning. her sitter claims that she had trouble wanting to eat and holds food in her mouth for a while before swallowing. i chose to put meds in pudding in hole form and she took every pill although it took 20 min. she had hiccups after breakfast and after her pudding and meds.
--- NOTE | 2020-07-10 16:45 | PM.DCS ---
Discharge Providers Date of Admission: 07/08/20 13:19 Date of Discharge: July 10, 2020 Attending Provider at Admission: Santiago Scott MD Attending Provider at Discharge: Santiago Scott MD Primary Care Provider: Rashida Bernstein MD Diagnoses at Discharge Discharge Diagnosis (1) Acute dehydration: Status: Acute (2) Generalized weakness: Status: Acute (3) Dizziness: Status: Acute (4) Early onset Alzheimer's dementia: Status: Acute Qualifiers: Dementia behavioral disturbance: without behavioral disturbance Qualified Code(s): G30.0 - Alzheimer's disease with early onset; F02.80 - Dementia in other diseases classified elsewhere without behavioral disturbance (5) Anorexia: Status: Acute (6) Refeeding syndrome: Status: Acute (7) Hypomagnesemia: Status: Acute (8) Hypophosphatemia: Status: Acute (9) RAFAEL (acute kidney injury): Status: Acute (10) Hyperbilirubinemia: Status: Acute (11) Hypertension: Status: Acute Qualifiers: Hypertension type: essential hypertension Qualified Code(s): I10 - Essential (primary) hypertension Reason for Visit Reason for Visit: SYNCOPE/VOMIT Hospital Course Discharge Summary: Manda Crystal is a 75 year old female with past medical history of hypertension, osteoarthritis, Alzheimer's dementia presented to the hospital today with her after having an episode of dizziness while she was having a bowel movement in the bathroom. During that episode patient had a presyncopal event and sat down but did not hit her head anywhere. As per the patient has not been eating anything or drinking anything for last 1 to 2 weeks. As per him patient's appetite has been on the lower side for last 1 month. Patient denies of having nausea, vomiting, headache, dizziness, dysuria, abdominal pain, cough. Patient states she is probably lost some weight. agrees with that. Patient denies of having any depression, suicidal ideation or homicidal ideation. During the event today patient did not have any aura but did have some dizziness prior and after the episode. She did not have any weakness in any of her arms or legs. She did not have any vomiting, frothing from her mouth or bowel or bladder accident around the event. Denies of having any changes in her medications recently. Patient lives with her who is also her caregiver. At baseline she is able to walk on herself. Blood work in the ER showed a white count of 17.5, hemoglobin of 48, platelet count of 206, sodium of 141, creatinine of 1.1 with a BUN of 29, chloride of 98 lactate of 2, bilirubin of 2.3, AST/ALT of 19/10, alkaline phosphatase of 106, UA consistent with dark urine, trace leuk esterase, negative nitrate, at 15-25 WBCs, drug screen was negative. Gallbladder ultrasound was done which showed prior cholecystectomy without any intrahepatic duct dilatation, CT head was done without any acute intracranial hemorrhage, severe chronic white matter disease with prior lacunar infarct at right basal ganglia and caudate. Chest x-ray negative for any consolidation, CT cervical spine without any fracture, moderate degenerative disorder with significant stenosis at left C3-C4-C5. Patient was started on IV fluids and was started for work-up for chronic anorexia.Her blood work from admission was most likely from hemoconcentration. Her numbers improved with IV hydration. There were no sign of infection as patient remained hemodynamically stable and afebrile. Patient was found to have multiple electrolyte abnormalities including hypophosphatemia, hypomagnesemia, hypokalemia, hypocalcemia which are all corrected. All this electrode normalities are most likely from refeeding syndrome. Patient denied of having any difficulty in swallowing but continued to complain of decreased appetite. CT abdomen pelvis with contrast was done to rule out any sign of malignancy which was mostly unremarkable other than left hydronephrosis. CT scan was discussed with Dr. Corrales and he states it is most likely chronic. For anorexia it is believed that patient symptoms are most likely because of advanced dementia for which psychiatric evaluation was done and her dementia medications were changed. At home patient takes Aricept which was recently started which was stopped. She was started on Zyprexa low-dose every morning and Remeron at night. Patient is been discharged in medically stable condition with home health with advised to follow-up with her primary care provider within next 7 to [address] Corrales in next 3 to [address] Wright from ENT. Physical Exam Const: COMMON NORMALS: average body habitus, patient oriented x3 and alert GENERAL APPEARANCE: cooperative and frail appearing ORIENTATION/CONSCIOUSNESS: Yes awake, Yes oriented to person, Yes oriented to place and Yes Other orientation findings (does not know date but knows location, address, 's name) HENMT: COMMON NORMALS: normocephalic and atraumatic HEAD & SCALP: normal to inspection, normocephalic and atraumatic FACE & SINUS: normal facial exam and sinuses nontender Eye: COMMON NORMALS: Equal, round and reactive pupils present and EOMs intact bilaterally GENERAL EYE: appearance normal, both eyes and all related structures PUPIL: Yes Equal, round and reactive pupils present Neck/C-Spine: CERVICAL SPINE: Yes cervical ROM normal and No Cervical spine tenderness Chest: COMMONS NORMALS: normal inspection of the chest and normal palpation of entire chest wall Resp: COMMON NORMALS: normal respiratory effort and clear to auscultation bilaterally AUSCULTATION: clear to auscultation bilaterally Cardio: COMMON NORMALS: regular rate and regular rhythm RATE: regular rate RHYTHM: regular rhythm GI: COMMON NORMALS: Normal to inspection, nondistended, normoactive bowel sounds present, Soft to palpation, non-tender, No hepatosplenomegaly present and no masses PALPATION: Yes Soft to palpation and Yes No hepatosplenomegaly present Extremity: GENERAL: Yes normal exam except as noted RIGHT LOWER EXTREMITY: Yes hip joint and Yes knee joint (tender w movement, but doesn't localize.....well) Neuro: [place] COMA SCALE: document GCS findings [place] coma scale eye opening: Spontaneous [place] coma scale verbal response: Confused [place] coma scale motor response: Obey commands [place] coma scale total score: 14 COMMON NORMALS: patient oriented x3, CN's II-XII intact bilaterally, moves all extremities, no focal motor deficits and no sensory deficits noted SENSORIUM/ORIENTATION: Yes alert, Yes oriented to person and Yes oriented to place SPEECH: speech normal Discharge Data Data Completed and Pending: Completed Studies During Hospitalization Category Date Time Status CT cervical spin wo con* [id number] Urge nt Cat Scan 07/08/20 10:[address] chest abd pel w con* Routine Cat Scan 07/09/20 09:[address] head wo con* 7 0450 Urgent Cat Scan 07/08/20 10:05 Completed XR chest 1V ailin ble [id number] Urgent Exams 07/08/20 10:05 Completed US gall bladder 7 4915 Urgent Ultrasound 07/08/20 12:28 Completed Pending at discharge Category Date Time Status Blood Culture Sta t Lab 07/08/20 13:00 Results Helicobacter Pylo ri AG Stool Routin e Lab 07/09/20 15:00 Received Phosphorus AM LAB S Lab 07/11/20 04:00 Ordered Stool Culture, Ba cterial [Enteric B acterial Panel by Lab 07/09/20 14:44 Uncollected PCR] Routine Labs from last 24 hours 07/10/20 07/10/20 04:15 04:15 Sodium 140 Potassium 3.5 Chloride 107 Carbon Dioxide 22 Anion Gap 14.5 BUN 20 Creatinine 0.9 GFR Calculation Not Reportable Glucose 114 Calculated Osmolal ity 293 Calcium 8.9 Phosphorus 2.7 Total Bilirubin 1.0 AST 23 ALT 11 Alkaline Phosphata se 86 Total Protein 4.6 L Albumin 2.8 L Globulin 1.8 Vitals: Last Vital Signs Temp 97.5 F L 07/10/20 15:40 Pulse 76 07/10/20 15:40 Resp 16 07/10/20 15:40 BP 124/71 07/10/20 15:40 Pulse Ox 97 07/10/20 15:40 Discharge Plan Discharge Patient Disposition: Home Health Service Condition: Stable Prescriptions: New olanzapine 5 mg Tablet 2.5 mg PO QAM Qty: 30 RF: 0 Vitamin B-12 1,000 mcg Tablet 500 mcg PO DAILY Qty: 30 RF: 0 folic acid 1 mg Tablet 1 mg PO BID Qty: 60 RF: 0 Ensure Pudding Pudding See Rx Instructions .ROUTE .COMPLEX Qty: 452 RF: 0 mirtazapine 15 mg Tablet 15 mg PO BEDTIME Qty: 30 RF: 0 Continued aspirin 325 mg tablet 325 mg PO DAILY RF: 0 famotidine [Heartburn Relief (famotidine)] 20 mg tablet 20 mg PO BID 90 Days Qty: 180 RF: 3 sulindac 200 mg tablet 200 mg PO BID Qty: 60 RF: 2 omeprazole 20 mg capsule,delayed release(DR/EC) 20 mg PO DAILY RF: 0 Zofran 4 mg tablet 4 mg PO Q8H PRN (Reason: Nausea) RF: 0 Discontinued donepezil 10 mg tablet 10 mg PO DAILY Qty: 90 RF: 3 Discharge Orders: Discharge Order (Routine); Ordered 07/10/20 Ordered By: Santiago Scott Referrals: [facility] ([facility]) [Outside] Rashida Bernstein MD [Primary Care Provider] - 7-10 days Db Corrales MD [Physician] - 4-7 days (Chronic left hydronephrosis without any sign of infection) Jamar Olson MD [Physician] - 2 weeks Discharge Diet: Regular and GI Soft Discharge Activity: Resume usual activity Activity Restrictions/Additional Instructions: Aricept has been stopped. Patient is to take Zyprexa 2.5 mg in morning and Remeron 15 mg at night. Please take high calorie diet along with Ensure. Discharge Attestations Time Spent in Discharge Care*: greater than 30 min Specific Discharge Activities: Specific discharge activities: educating patient, educating and/or supporting family/caregiver, discussing with pcp/other providers, discussing with nurse case management/social workers/dc planners, documenting/other paperwork and evaluating patient/reviewing data Status at Discharge: Cognitive status at discharge: mildly impaired cognition, Behavioral status at discharge: cooperative, Functional status at discharge: wheelchair bound Overall status at discharge: patient is not back to baseline Quality Metrics Clinical Quality Measures During this hospital stay, did patient experience: None Coding Level of Care Code Acute Manager Helpdesk for [employer] Fwd Diagnoses Acute dehydration E86.0 Generalized weakness R53.1 Dizziness R42 Early onset Alzheimer's dementia G30.0; F02.80 Dementia behavioral disturbance: without behavioral disturbance Anorexia R63.0 Refeeding syndrome E87.8 Hypomagnesemia E83.42 Hypophosphatemia E83.39 RAFAEL (acute kidney injury) N17.9 Hyperbilirubinemia E80.6 Hypertension I10 Hypertension type: essential hypertension
--- NOTE | 2020-07-10 18:50 | PC.NURSE ---
patient lethargic still , will not eat. at and he was shocked that she was going home and wanted home health there or monday . i said i did not know but expected them monday. he was not sales receptionist to instruction and altough it was all circled he did not understand that he would have to arrange visits on monday when they were in the office. he felt bad that he did not have clothes for his i sent her with 2 blankets and out gowns and socks. he had her glasses. i fear he will not be able to handle keeping her clean and giving her her meds
== END 2020-07-10 18:57 | disposition home health service (06) | DRG 683 ==
LOC: ER 13:21 → MEDSURG 13:32
PROVIDERS: Physician Assistant; Admitting Provider Student in an Organized Health Care Education/Training Program; Emergency Provider Family Medicine; PCP Family Medicine; Visit Provider Student in an Organized Health Care Education/Training Program
DX: N17.9 Acute kidney failure, unspecified (principal); Z68.1 Body mass index [BMI] 19.9 or less, adult; G30.0 Alzheimer's disease with early onset; F02.80 Dementia in other diseases classified elsewhere, unspecified severity, without behavioral disturbance, psychotic disturbance, mood disturbance, and anxiety; E86.0 Dehydration; I10 Essential (primary) hypertension; E80.6 Other disorders of bilirubin metabolism; R63.0 Anorexia; E83.42 Hypomagnesemia; M19.90 Unspecified osteoarthritis, unspecified site; Z79.82 Long term (current) use of aspirin; K21.9 Gastro-esophageal reflux disease without esophagitis
CPT/HCPCS: 12345; 36415; 70450; 71045; 71260; 72125; 74177; 76705; 80053; 80074; 80306; 81001; 82140; 82436; 82533; 82607; 82746; 83036; 83540; 83550; 83605; 83735; 84100; 84133; 84145; 84146; 84300; 84443; 84484; 85025; 86592; 87040; 87086; 87338; 87449; 87506; 87641; 93005; 94640; 96372; 96375; 97116; 97161; 97166; 97530; 97535; 99284; J1650; J1956; J2405; J3420; J3475; J7030; Q9967

== ENCOUNTER 2020-07-13 20:38 | Emergency (ER) | payer MEDICARE, OTHER, SELFPAY ==
[2020-07-13 20:40] VITALS: BP 152/80; PULSE 94; RESP 18; TEMP 36.6; O2SAT 100; BMI 29.2
--- NOTE | 2020-07-13 20:49 | ED_ITS ---
HPI - General Adult General: Chief complaint: Altered Mental Status Stated complaint: CONFUSED/WEAKNESS Time Seen by Provider: 07/13/20 20:41 History of Present Illness: HPI narrative: 75-year-old female sent in by EMS. Patient was sent in for some mild increased weakness and increased confusion per EMS. Patient has a history of dementia. EMS reports that per family that this is been going on for couple days. There is no reports of any fever, chills, na usea, vomiting or any other systemic complaints. Patient herself states that she feels fine. Review of Systems General: Reports: ROS unobtainable due to mental status (Baseline dementia) Const: Denies: fever(s) Physical Exam Const: COMMON NORMALS: no acute distress NUTRITIONAL APPEARANCE: thin O RIENTATION/CONSCIOUSNESS: Yes awake HENMT: HEAD & SCALP: normal to inspection Eye: GENERAL EYE: appearance normal, both eyes and all related structures Resp: COMMON NORMALS: normal respiratory effort, No retractions, No use of accessory muscles and clear to auscultation bilaterally AUSCULTATION: clear to auscultation bilaterally Cardio: COMMON NORMALS: regular rate and regular rhythm RATE: regular rate RHYTHM: regular rhythm GI: COMMON NORMALS: Soft to palpation and non-tender PALPATION: Yes Soft to palpation : COMMON NORMALS: Yes no CVA tenderness BLADDER/KIDNEY EXAM: Yes no CVA tenderness Back/Pelvis: COMMON NORMALS: no CVA tenderness Extremity: COMMON NORMALS: normal to inspection and full ROM Neuro: COMMON NORMALS: moves all extremities and no focal motor deficits CRANIAL NERVES: Yes CN normal except as noted Psych: COMMON NORMALS: cooperative and speech normal ATTITUDE: Yes calm SPEECH: Yes normal speech Course Vital Signs: Vital signs: Vital Signs Temperature 97.8 F 07/13/20 20:40 Pulse Rate 94 07/13/20 20:40 Respiratory Rate 18 07/13/20 20:40 Blood Pressure 152/80 07/13/20 20:40 Pulse Oximetry 100 07/13/20 20:40 MDM - General Adult MDM Narrative: Medical decision making narrative: Patient with urine consistent with a urinary tract infection. This in addition to her dementia is likely the cause of her mild worsening confusion and weakness. I will treat her with Rocephin and discharge her with a prescription for Keflex. Lab Data: Attestation: I reviewed the patient's lab results. Labs: Lab Results 07/13/20 07/13/20 07/13/20 Range/Units 21:28 22:15 22:15 WBC 10.9 H (4.0-10.0) 10^3/ uL RBC 3.66 L (4.1-5.3) 10^6/u L Hgb 11.3 L (11.5-15.3) g/dL Hct 35.3 L (37.0-47.0) % MCV 96.4 (81-99) fL MCH 30.9 (28.0-34.0) pg MCHC 32.0 (30.0-36.0) g/dL RDW 17.2 H (12.1-15.1) % Plt Count 174 (130-400) 10^3/c mm MPV 12.4 H (7.4-10.4) fL Neut % (Auto) 74.4 % Lymph % (Auto) 12.4 % [place] % (Auto) 9.9 % Eos % (Auto) 1.1 % Baso % (Auto) 0.7 % Neut # (Auto) 8.11 H (1.8-7.7) 10^3/u L Lymph # (Auto) 1.4 (0.8-4.8) 10^3/u L [place] # (Auto) 1.1 H (0.2-0.9) 10^3/u L Eos # (Auto) 0.1 (0.0-0.8) 10^3/u L Baso # (Auto) 0.1 (0.0-0.1) 10^3/u L Nucleated RBC % (a uto) 0 % Nucleated RBCs # 0.0 /100WBC Sodium 142 (136-145) mmol/L Potassium 4.0 (3.5-5.1) mmol/L Chloride 106 (98-107) mmol/L Carbon Dioxide 24 (22-29) mmol/L Anion Gap 16.0 (5-19) BUN 20 (8-23) mg/dL Creatinine 0.8 (0.5-0.9) mg/dL GFR Calculation Not Reportable Glucose 110 (65-115) mg/dL Calculated Osmolal ity 297 H (285-295) mOsm/k g Calcium 8.7 (8.5-10.5) mg/dL Total Bilirubin 2.0 H (0.15-1.2) mg/dL AST 36 H (0-32) U/L ALT 31 (0-33) U/L Alkaline Phosphata se 121 H (35-105) IU/L Total Protein 4.9 L (6.6-8.7) g/dL Albumin 2.9 L (3.5-5.2) g/dL Globulin 2.0 (1.3-4.6) g/dL Urine Color Brown (Yellow) Urine Appearance Cloudy (CLEAR) Urine pH 5 (5-7) Ur Specific Gravit y 1.030 (1.005-1.030) Urine Protein Neg (Negative) Urine Glucose (UA) Norm (Normal) Urine Ketones 1+ H (Negative) Urine Blood 2+ H (Negative) Urine Nitrate Negative (Negative) Urine Bilirubin 1+ H (Negative) Urine Urobilinogen 1 H (Negative) mg/dL Ur Leukocyte Alecia ase 2+ H (Negative) Urine RBC 0-4 H (0-2) /hpf Urine WBC 55-80 H (0-5) /hpf Ur Squamous Epith Cells 0-4 H (0-5) /hpf Amorphous Sediment Not Reportable Urine Bacteria 1+ H (NONE) /hpf Urine Mucus 1+ /hpf Discharge Plan Discharge Patient Disposition: Home Clinical Impression: Cystitis Dementia Qualifiers: Dementia type: unspecified type Condition: Stable Prescriptions: New Keflex 500 mg capsule 500 mg PO BID 7 Days Qty: 14 RF: 0 No Action megestrol 400 mg/10 mL (40 mg/mL) suspension See Rx Instructions .ROUTE .COMPLEX RF: 0 donepezil 10 mg tablet See Rx Instructions .ROUTE .COMPLEX RF: 0 ondansetron HCl 4 mg tablet 4 mg PO Q8H PRN (Reason: Nausea) RF: 0 olanzapine 2.5 mg tablet 2.5 mg PO BEDTIME RF: 0 omeprazole 20 mg capsule,delayed release(DR/EC) 20 mg PO DAILY RF: 0 mirtazapine 15 mg tablet 15 mg PO DAILY RF: 0 sulindac 200 mg tablet 200 mg PO BID RF: 0 aspirin 325 mg Tablet 325 mg PO DAILY RF: 0 Discharge Orders: Discharge Order (Routine); Ordered 07/13/20 Ordered By: Matt Espana Discharge Diet: Usual diet Discharge Activity: Resume usual activity Patient Instructions: Urinary Tract Infection in Women (ED) Activity Restrictions/Additional Instructions: Follow-up with the primary care provider in 3 to 4 days for recheck of today's symptoms Coding Level of Care Code ED Fixing Machine Operator for Rina Fwd Exam Comprehensive
[2020-07-13 22:09] LABS: Add Urine Microscopic? YES; Bilirubin Urine 1+ (Negative); Blood Urine 2+ (Negative); Glucose Urine UA Norm (Normal); Ketones Urine 1+ (Negative); Leukocyte Esterase Urine 2+ (Negative); Nitrate Urine Negative (Negative); Protein Urine Neg (Negative); Urine Appearance Cloudy (CLEAR); Urine Color Brown (Yellow); Urobilinogen Urine 1 mg/dL (Negative); pH Urine 5 (5-7)
[2020-07-13 22:10] LABS: Add Urine Culture? Yes; Bacteria Urine 1+ /hpf; Mucus Urine 1+ /hpf; RBC Urine 0-4 /hpf (0-2); Squamous Epithelial Cell Urine 0-4 /hpf (0-5); WBC Urine 55-80 /hpf (0-5)
[2020-07-13 22:24] LABS: Basophils # 0.1 10^3/uL (0.0-0.1); Basophils % 0.7 %; Eosinophils # 0.1 10^3/uL (0.0-0.8); Eosinophils % 1.1 %; Hematocrit 35.3 % (37.0-47.0); Hemoglobin 11.3 g/dL (11.5-15.3); Lymphocytes # 1.4 10^3/uL (0.8-4.8); Lymphocytes % 12.4 %; Mean Corpuscular Hemoglobin 30.9 pg (28.0-34.0); Mean Corpuscular Volume 96.4 fL (81-99); Mean Platelet Volume 12.4 fL (7.4-10.4); Monocytes # 1.1 10^3/uL (0.2-0.9); Monocytes % 9.9 %; Neutrophils # 8.11 10^3/uL (1.8-7.7); Neutrophils % 74.4 %; Nucleated Red Blood Cells % 0 %; Platelet Count 174 10^3/cmm (130-400); Red Blood Count 3.66 10^6/uL (4.1-5.3); Red Cell Distribution Width 17.2 % (12.1-15.1); White Blood Count 10.9 10^3/uL (4.0-10.0)
[2020-07-13] MEDS: cefTRIAXone 1,000 MG in sodium chloride 0.9% (plus) 50 ML 100 MG IV (22:32)
[2020-07-13] MEDS: sodium chloride 0.9% 500 ML IV (22:49)
[2020-07-13 22:53] LABS: Alanine Aminotransferase 31 U/L (0-33); Albumin Level 2.9 g/dL (3.5-5.2); Alkaline Phosphatase 121 IU/L (35-105); Aspartate Amino Transferase 36 U/L (0-32); Blood Urea Nitrogen 20 mg/dL (8-23); Calcium 8.7 mg/dL (8.5-10.5); Carbon Dioxide 24 mmol/L (22-29); Chloride 106 mmol/L (98-107); Glucose 110 mg/dL (65-115); Osmolality Calculated 297 mOsm/kg (285-295); Sodium 142 mmol/L (136-145); Total Protein 4.9 g/dL (6.6-8.7)
--- NOTE | 2020-07-14 09:13 | DCPLANNER ---
senior electrical project manager had message to speak with patient and family about hospice services. senior electrical project manager called and spoke with patients , comp field case manager asked patients if hospice services is something that the family is interested in at this time. Patients said not at this time, he is going to speak with patients primary care physician first.
== END 2020-07-14 00:07 | disposition home or self-care (01) ==
PROVIDERS: Emergency Provider Student in an Organized Health Care Education/Training Program
DX: F03.90 Unspecified dementia, unspecified severity, without behavioral disturbance, psychotic disturbance, mood disturbance, and anxiety (principal); N30.90 Cystitis, unspecified without hematuria; Z79.82 Long term (current) use of aspirin
CPT/HCPCS: 12345; 80053; 81001; 85025; 87077; 87086; 87186; 99283; J0696; J7040

== ENCOUNTER 2020-07-16 09:23 | Inpatient (IN) | payer MEDICARE, OTHER, SELFPAY ==
[2020-07-16] VITALS (11 sets, daily range): BP systolic 102–138; BP diastolic 60–82; PULSE 74–95; RESP 15–22; TEMP 36.3–37.1; O2SAT 98–100; BMI 20.5
--- NOTE | 2020-07-16 09:53 | CT_ITS ---
WS: [id number] CT HEAD NONCONTRAST HISTORY: AMS TECHNIQUE: Contiguous axial imaging performed through the brain in 2.5 mm imaging. Bone and soft tiss ue windows. Sagittal and coronal reformats reviewed. All CT scans at [facility] use at ast one of these dose optimization techniques: automated exposure control; mA and/or kV adjustment pe r patient size (includes targeted exams where dose is matched to clinical indication); or iterative r econstruction. DLP: 792.18 mGy.cm COMPARISON: 07/08/2020 No acute intracranial hemorrhage, midline shift or mass effect. Moderate atrophy with severe confluent chronic white matter disease. Small lacunar infarcts in the ba tanisha ganglia bilaterally. No new area of sulcal effacement. Ventricles: Normal size with no hydrocephalus. Paranasal sinuses: As visualized are clear. Mastoid air cells: Well pneumatized. Calvarium and scalp: Skull is intact with no soft tissue edema or swelling. CT/CT head wo con* [id number] IMPRESSION: 1. No acute intracranial hemorrhage. 2. Severe chronic white matter disease at multiple prior lacunar infarcts. Sta ble.
--- NOTE | 2020-07-16 09:54 | ECG_ITS ---
[facility] Test Date: 2020-07-16 Pat Name: Mnada Crystal Department: Room: Gender: Female Retail Loan Officer: : 1945 Requested By: Jayro Cintron Order Number: [id number] Heidy MD: Domonique Simms M.D. Measurements Intervals [place] Rate: 78 P: 85 UT: 155 QRS: 2 QRSD: 83 T: -68 QT: 399 QTc: 457 Interpretive Statements SINUS RHYTHM ST DEVIATION AND MODERATE T-WAVE ABNORMALITY, CONSIDER LATERAL ISCHEMIA [-0.1+ mV T WAVE IN I/aVL/V5/V6] ST DEVIATION AND MODERATE T-WAVE ABNORMALITY, CONSIDER INFERIOR ISCHEMIA [-0.1+ mV T WAVE IN II/aVF] Compared to ECG 07/08/2020 15:43:44 Possible ischemia now present T-wave abnormality still present Electronically Signed On 07-16-2020 21:36:23 CDT by Domonique Simms M.D. [id number] f
[2020-07-16 10:12] LABS: ABG PCO2 26.6 mmHg (35-45); ABG PH Result 7.44 (7.35-7.45); Alveolar-Arterial Oxygen Gradi 2.7 mmHg (5-10); Arterial Blood Gas Hematocrit 36.5 % (37-47); Base Excess ABG -4.8 mmol/L (-2.0-2.0); Blood Gas Allen Test Pos; Blood Gas Operator Identificat CAK; Blood Gas Sample Site Radial, left; Blood Gas Sample Type Arterial; Carboxyhemoglobin 1.2 %THgb (0.4-20.1); HCO3 ABG 18.1 mmol/L (22-26); HGB O2 Sat 95.8 % (95-100); Ionized Calcium Level - ABG 1.3 mmol/L (1.1-1.4); Methemoglobin 1.1 % (0.4-1.5); Oxygen Device ROOM AIR; Oxygen Saturation ABG 98.1; PO2 ABG 94.7 mmHg (80.0-100.0); Potassium Level - ABG 3.5 mmol/L (3.5-5.0); Total Hemoglobin 11.9 g/dL (12-16)
--- NOTE | 2020-07-16 10:18 | W.ED.AMS ---
HPI - Altered Mental Status General: Chief Complaint: Altered Mental Status Stated Complaint: ALOC Time Seen by Provider: 07/16/20 09:38 History of Present Illness: HPI narrative: 75-year-old female presents to the emergency room extremely weak with altered mental status. She was seen a few days ago and started on Keflex for a cystitis. But she is not been able to take it p.o. In addition to that culture came back and she needed to be changed to a different antibiotic. She is unresponsive this morning on the commode. Family is reporting they really cannot manage to care for her at all. She was recently hospitalized and hospice was advised to the patient but evidently that was never followed through on by the family. She has not seen a regular doctor in some time. She is responsive to questions this morning but she has a difficult time giving specific information. MD complaint: altered mental status and confusion Onset (ago): week(s) Severity: mild Consistency of symptoms: Getting Worse Context: history of similar presentation Review of Systems General: Reports: ROS unobtainable due to medical condition and ROS unobtainable due to mental status [facility] ED PFSH: Medical History (Updated 07/20/20 @ 16:04 by Jayro Archer DO) Early onset Alzheimer's dementia Enrolled in chronic care management GERD (gastroesophageal reflux disease) Hypertension Osteoarthritis Osteoporosis Surgical History History of cholecystectomy History of tonsillectomy History of total knee replacement (TKR) Family History Denies family history of Chronic kidney disease (CKD) Cancer Social History (Updated 07/16/20 @ 16:03 by Kay Pineda MD) Smoking and tobacco status: never smoked Alcohol intake: never Lives independently: No Household members: spouse Housing: House Marital status: Physical Exam HENMT: COMMON NORMALS: normocephalic and atraumatic HEAD & SCALP: normocephalic and atraumatic Neck/C-Spine: COMMON NORMALS: full ROM, no lymphadenopathy, supple and no JVD Lymph: LYMPHATIC: no lymphadenopathy noted and no lymphedema noted Resp: COMMON NORMALS: normal respiratory effort, No retractions, No use of accessory muscles and clear to auscultation bilaterally AUSCULTATION: clear to auscultation bilaterally Cardio: COMMON NORMALS: no JVD, regular rate, regular rhythm and No murmurs present (Cardio) RATE: regular rate RHYTHM: regular rhythm GI: COMMON NORMALS: Soft to palpation and No hepatosplenomegaly present AUSCULTATION: Yes normoactive bowel sounds PALPATION: Yes Soft to palpation, No Tenderness to palpation present (GI), No Guarding due to palpation present (GI) and Yes No hepatosplenomegaly present Extremity: COMMON NORMALS: normal to inspection, capillary refill normal, no clubbing, cyanosis or edema, no calf tenderness and no pedal edema Skin: COMMON NORMALS: no rashes or lesions noted GENERAL SKIN EXAM: no rashes or lesions noted Course Vital Signs: Vital signs: Vital Signs Temperature 98.3 F 07/20/20 11:25 Pulse Rate 84 07/20/20 11:25 Respiratory Rate 18 07/20/20 11:25 Blood Pressure 122/68 07/20/20 11:25 Pulse Oximetry 96 07/20/20 11:25 MDM - Altered Mental Status MDM Narrative: Medical decision making narrative: Reviewed findings patient has poor oral intake weight loss dehydration and acute kidney injury. Will admit Dr. Pineda. Lab Data: Labs: Lab Results 07/16/20 07/16/20 07/16/20 Range/Units 10:01 10:30 10:46 WBC 14.3 H (4.0-10.0) 10^3/ uL RBC 4.07 L (4.1-5.3) 10^6/u L Hgb 12.7 (11.5-15.3) g/dL Hct 42.1 (37.0-47.0) % MCV 103.4 H (81-99) fL MCH 31.2 (28.0-34.0) pg MCHC 30.2 (30.0-36.0) g/dL RDW 17.7 H (12.1-15.1) % Plt Count 53 L (130-400) 10^3/c mm MPV 13.0 H (7.4-10.4) fL Neut % (Auto) 77.1 % Lymph % (Auto) 7.8 % [place] % (Auto) 9.3 % Eos % (Auto) 2.6 % Baso % (Auto) 0.9 % Neut # (Auto) 11.05 H (1.8-7.7) 10^3/u L Lymph # (Auto) 1.1 (0.8-4.8) 10^3/u L [place] # (Auto) 1.3 H (0.2-0.9) 10^3/u L Eos # (Auto) 0.4 (0.0-0.8) 10^3/u L Baso # (Auto) 0.1 (0.0-0.1) 10^3/u L Nucleated RBC % (a uto) 0 % Nucleated RBCs # 0.0 /100WBC Specimen Type Arterial Sample Site Radial, left ABG pH 7.44 (7.35-7.45) ABG pCO2 26.6 L (35-45) mmHg ABG pO2 94.7 (80.0-100.0) mmH g ABG HCO3 18.1 L (22-26) mmol/L ABG O2 Saturation 98.1 ABG Base Excess -4.8 L (-2.0-2.0) mmol/ L Anselmo Test Pos A-a O2 Gradient 2.7 L (5-10) mmHg Hematocrit 36.5 L (37-47) % Hgb O2 Saturation 95.8 (95-100) % Carboxyhemoglobin 1.2 (0.4-20.1) %THgb Methemoglobin 1.1 (0.4-1.5) % Total Hemoglobin 11.9 L (12-16) g/dL Sodium 139.0 (131-143) mmol/L Potassium 3.5 (3.5-5.0) mmol/L Glucose 81.0 (70-115) mg/dL Ionized Calcium 1.3 (1.1-1.4) mmol/L O2 Delivery Device Room air Road Supervisor ID Cak Chloride (98-107) mmol/L Carbon Dioxide (22-29) mmol/L Anion Gap (5-19) BUN (8-23) mg/dL Creatinine (0.5-0.9) mg/dL GFR Calculation Calculated Osmolal ity (285-295) mOsm/k g Calcium (8.5-10.5) mg/dL Total Bilirubin (0.15-1.2) mg/dL AST (0-32) U/L ALT (0-33) U/L Alkaline Phosphata se (35-105) IU/L Troponin T Baselin e (0-10) ng/L Troponin T 120 Min [place] (0-10) ng/L Delta Troponin T (0-10) ABS# Total Protein (6.6-8.7) g/dL Albumin (3.5-5.2) g/dL Globulin (1.3-4.6) g/dL Lipase (13-60) U/L Urine Color Dark yellow (Yellow) Urine Appearance Hazy A (CLEAR) Urine pH 5 (5-7) Ur Specific Gravit y 1.020 (1.005-1.030) Urine Protein 1+ H (Negative) Urine Glucose (UA) Norm (Normal) Urine Ketones 1+ H (Negative) Urine Blood 2+ H (Negative) Urine Nitrate Negative (Negative) Urine Bilirubin 1+ H (Negative) Urine Urobilinogen 1 H (Negative) mg/dL Ur Leukocyte Alecia ase Negative (Negative) Urine RBC 10-15 H (0-2) /hpf Urine WBC None (0-5) /hpf Ur Squamous Epith Cells 0-4 H (0-5) /hpf Amorphous Sediment 1+ /hpf Urine Bacteria Trace (NONE) /hpf 07/16/20 07/16/20 07/16/20 Range/Units 10:55 10:55 12:55 WBC (4.0-10.0) 10^3/ uL RBC (4.1-5.3) 10^6/u L Hgb (11.5-15.3) g/dL Hct (37.0-47.0) % MCV (81-99) fL MCH (28.0-34.0) pg MCHC (30.0-36.0) g/dL RDW (12.1-15.1) % Plt Count (130-400) 10^3/c mm MPV (7.4-10.4) fL Neut % (Auto) % Lymph % (Auto) % [place] % (Auto) % Eos % (Auto) % Baso % (Auto) % Neut # (Auto) (1.8-7.7) 10^3/u L Lymph # (Auto) (0.8-4.8) 10^3/u L [place] # (Auto) (0.2-0.9) 10^3/u L Eos # (Auto) (0.0-0.8) 10^3/u L Baso # (Auto) (0.0-0.1) 10^3/u L Nucleated RBC % (a uto) % Nucleated RBCs # /100WBC Specimen Type Sample Site ABG pH (7.35-7.45) ABG pCO2 (35-45) mmHg ABG pO2 (80.0-100.0) mmH g ABG HCO3 (22-26) mmol/L ABG O2 Saturation ABG Base Excess (-2.0-2.0) mmol/ L [place] Test A-a O2 Gradient (5-10) mmHg Hematocrit (37-47) % Hgb O2 Saturation (95-100) % Carboxyhemoglobin (0.4-20.1) %THgb Methemoglobin (0.4-1.5) % Total Hemoglobin (12-16) g/dL Sodium 141 (131-143) mmol/L Potassium 3.6 (3.5-5.0) mmol/L Glucose 81 (70-115) mg/dL Ionized Calcium (1.1-1.4) mmol/L O2 Delivery [address] Supervisor ID Chloride 103 (98-107) mmol/L Carbon Dioxide 17 L (22-29) mmol/L Anion Gap 24.6 H (5-19) BUN 27 H (8-23) mg/dL Creatinine 1.1 H (0.5-0.9) mg/dL GFR Calculation Not Reportable Calculated Osmolal ity 296 H (285-295) mOsm/k g Calcium 9.4 (8.5-10.5) mg/dL Total Bilirubin 1.8 H (0.15-1.2) mg/dL AST 26 (0-32) U/L ALT 27 (0-33) U/L Alkaline Phosphata se 152 H (35-105) IU/L Troponin T Baselin e 44 H (0-10) ng/L Troponin T 120 Min [place] 40.25 H (0-10) ng/L Delta Troponin T -3.75 L (0-10) ABS# Total Protein 5.4 L (6.6-8.7) g/dL Albumin 3.1 L (3.5-5.2) g/dL Globulin 2.3 (1.3-4.6) g/dL Lipase 24 (13-60) U/L Urine Color (Yellow) Urine Appearance (CLEAR) Urine pH (5-7) Ur Specific Gravit y (1.005-1.030) Urine Protein (Negative) Urine Glucose (UA) (Normal) Urine Ketones (Negative) Urine Blood (Negative) Urine Nitrate (Negative) Urine Bilirubin (Negative) Urine Urobilinogen (Negative) mg/dL Ur Leukocyte Alecia ase (Negative) Urine RBC (0-2) /hpf Urine WBC (0-5) /hpf Ur Squamous Epith Cells (0-5) /hpf Amorphous Sediment /hpf Urine Bacteria (NONE) /hpf Discharge Plan Discharge Patient Disposition: Admitted As Inpatient Admit Provider: Kay Pineda Clinical Impression: Acute cystitis, Hypertension, Early onset Alzheimer's dementia, Acute kidney injury Condition: Stable Interventions: ED Discharge Assessment Last Done: 07/16/20 13:50 ED Charges Last Done: 07/16/20 13:50 Discharge Date/Time: 07/16/20 14:35 Coding Level of Care Code ED Still Operator for Dog Fwd Exam Comprehensive
[2020-07-16 10:52] LABS: Basophils # 0.1 10^3/uL (0.0-0.1); Basophils % 0.9 %; Eosinophils # 0.4 10^3/uL (0.0-0.8); Eosinophils % 2.6 %; Hematocrit 42.1 % (37.0-47.0); Hemoglobin 12.7 g/dL (11.5-15.3); Lymphocytes # 1.1 10^3/uL (0.8-4.8); Lymphocytes % 7.8 %; Mean Corpuscular HGB Conc 30.2 g/dL (30.0-36.0); Mean Corpuscular Hemoglobin 31.2 pg (28.0-34.0); Mean Corpuscular Volume 103.4 fL (81-99); Monocytes # 1.3 10^3/uL (0.2-0.9); Monocytes % 9.3 %; Neutrophils # 11.05 10^3/uL (1.8-7.7); Neutrophils % 77.1 %; Nucleated Red Blood Cells % 0 %; Platelet Count 53 10^3/cmm (130-400); Red Blood Count 4.07 10^6/uL (4.1-5.3); Red Cell Distribution Width 17.7 % (12.1-15.1); White Blood Count 14.3 10^3/uL (4.0-10.0)
[2020-07-16] MEDS: ciprofloxacin 400 MG/200 ML PREMIX 200 MG IV (11:06)
[2020-07-16 11:20] LABS: Alanine Aminotransferase 27 U/L (0-33); Albumin Level 3.1 g/dL (3.5-5.2); Alkaline Phosphatase 152 IU/L (35-105); Aspartate Amino Transferase 26 U/L (0-32); Blood Urea Nitrogen 27 mg/dL (8-23); Calcium 9.4 mg/dL (8.5-10.5); Carbon Dioxide 17 mmol/L (22-29); Chloride 103 mmol/L (98-107); Globulin 2.3 g/dL (1.3-4.6); Glucose 81 mg/dL (65-115); Lipase 24 U/L (13-60); Osmolality Calculated 296 mOsm/kg (285-295); Sodium 141 mmol/L (136-145); Total Bilirubin 1.8 mg/dL (0.15-1.2); Total Protein 5.4 g/dL (6.6-8.7)
[2020-07-16 11:21] LABS: Anion Gap 24.6 (5-19); Potassium 3.6 mmol/L (3.5-5.1)
[2020-07-16 11:21] LABS: Urine Appearance Hazy (CLEAR); Urine Color Dark Yellow (Yellow); pH Urine 5 (5-7)
[2020-07-16 11:22] LABS: Add Urine Microscopic? YES; Bilirubin Urine 1+ (Negative); Blood Urine 2+ (Negative); Glucose Urine UA Norm (Normal); Ketones Urine 1+ (Negative); Leukocyte Esterase Urine Negative (Negative); Nitrate Urine Negative (Negative); Protein Urine 1+ (Negative); Urobilinogen Urine 1 mg/dL (Negative)
[2020-07-16 11:22] LABS: Troponin(5th) Baseline 44 ng/L (0-10)
[2020-07-16 11:27] LABS: Add Urine Culture? Yes; Amorphous Sediment Urine 1+ /hpf; Bacteria Urine TRACE /hpf; Squamous Epithelial Cell Urine 0-4 /hpf (0-5)
--- NOTE | 2020-07-16 11:54 | ECG_ITS ---
[facility] Test Date: 2020-07-16 Pat Name: Manda Crystal Department: Room: Gender: Female Apprentice Funeral Director: : 1945 Requested By: Jayro Cintron Order Number: [id number] Heidy MD: Domonique Simms M.D. Measurements Intervals [place] Rate: 82 P: 51 [place]: 164 QRS: -18 QRSD: 84 T: 191 QT: 419 QTc: 491 Interpretive Statements SINUS RHYTHM MODERATE T-WAVE ABNORMALITY, CONSIDER ANTEROLATERAL ISCHEMIA [-0.1+ mV T WAVE IN V3-V6] MODERATE T-WAVE ABNORMALITY, CONSIDER INFERIOR ISCHEMIA [-0.1+ mV T WAVE IN II/aVF] Compared to ECG 07/16/2020 09:33:43 No significant changes Electronically Signed On 07-16-2020 21:42:11 CDT by Domonique Simms M.D. [email or web address] county [id number]
--- NOTE | 2020-07-16 12:15 | PC.NURSE ---
EKG done at 1215 and shown to ER doctor
--- NOTE | 2020-07-16 13:20 | PC.NURSE ---
PATIENT SLEEPING, RR EVEN AND NONLABORED. VS TRENDING. NO CONCERNS NOTED.
[2020-07-16 13:23] LABS: Troponin 5 2HR 40.25 ng/L (0-10)
--- NOTE | 2020-07-16 13:24 | XR_ITS ---
WS: [id number] XR chest 1V portable [id number] REASON FOR EXAM: dyspnea/cough FINDINGS: Mild tortuosity thoracic aorta. The heart size is within normal limits. Large calcified granuloma in the right lower midlung field. 2 smaller calcified granulomas more infer iorly. No active pulmonary parenchymal or pleural disease. Thickened apical pleural cap over the apex of the right lung unchanged compared to previous examination of 04/10/2019. Severe compression deformity of T12 present on previous examination of 07/08/2020, not present on previous examination of 04/10/2019 . XR/XR chest 1V portable [id number] IMPRESSION: No acute pulmonary abnormality. Severe compression deformity of T12, unknown chronicity.
[2020-07-16 13:26] LABS: Troponin 5 2HR Delta -3.75 ABS# (0-10)
[2020-07-16] MEDS: sodium chloride 0.9% 1,000 ML 999 ML IV (13:58)
[2020-07-16] MEDS: cefTRIAXone 1,000 MG in sodium chloride 0.9% (plus) 50 ML 100 MG IV (13:58)
[2020-07-16 14:51] LABS: Bilirubin Urine 1+ (Negative); Blood Urine 2+ (Negative); Glucose Urine UA Norm (Normal); Ketones Urine 1+ (Negative); Leukocyte Esterase Urine Trace (Negative); Nitrate Urine Negative (Negative); Protein Urine Neg (Negative); Urine Appearance SL Hazy (CLEAR); Urine Color Amber (Yellow); Urobilinogen Urine 4 mg/dL (Negative); pH Urine 5 (5-7)
[2020-07-16 14:55] LABS: Add Urine Culture? Yes; Bacteria Urine 3+ /hpf; Squamous Epithelial Cell Urine 0-4 /hpf (0-5); WBC Urine 25-40 /hpf (0-5)
[2020-07-16] MEDS: D5-NS 0.45% + KCL 20 mEq 20 MEQ/1,000 ML BAG 125 MEQ IV (15:29)
--- NOTE | 2020-07-16 15:47 | PM.HP ---
Providers/Chief Complaint Admitting Physician: Kay Pineda MD Primary Care Provider: Rashida Bernstein MD Chief Complaint: ALOC History of Present Illness Manda Crystal is a 75 year old female with PMHx noted below presents to our facility secondary to poor oral intake, weight loss, concern for dehydration. Patient is encountered on the medical surgical floor, is alert though slow to respond to questions and unable to answer more detailed questions during my history taking. Collateral information obtained from phone conversation with as well as review of medical record. Patient was recently admitted to our facility earlier this month during which time she was treated for UTI and was found to have significant electrolyte abnormalities and dehydration. Due to underlying dementia she was evaluated by psychiatry. She was discharged on antibiotics and home health services were arranged. states that while she has been home her appetite has continued to be quite poor and he has had some difficulty getting her to take her medications as well. Before her physical decline she was ambulating with a walker. It seems that she has not been out of bed for some time. He makes it clear that they do not wish to pursue a feeding tube despite her anorexia. During her previous admission as part of her work-up she had a CT scan of the chest, abdomen, pelvis which showed osteoporotic fractures, mild to moderate hydronephrosis on the left, significant left periureteral enhancement and thickening in the proximal ureter, mild diffuse colitis. She is unable to tell me if she has had difficulty with urination though states that she has not had any dysuria. Prior urine cultures were contaminated. Work-up today shows leukocytosis with a white count of 14.3, thrombocytopenia with a platelet count of 53, BUN of 27, creatinine of 1.1, T bili of 1.8, ALP of 152, baseline troponin of 44, urinalysis that is indicative of infection, ABG which is appropriate. It seems the patient received both ceftriaxone and ciprofloxacin as well as a liter of normal saline in the ER. Does not appear to be in any distress currently. She was referred to urology due to noted CT abnormalities. Will need to reassess particularly for hydronephrosis at this time. She does appear clinically dehydrated and will need further IV fluid hydration. Per she is to return home once medically stable. Review of Systems General: Reports: Other (obtained from ) Const: Reports: change in appetite (decreased), change in weight (weight loss) and fatigue Card: Reports: edema GI: Reports: other (poor appetite and oral intake) : Denies: difficulty voiding or dysuria Neuro: Reports: weakness in extremities, difficulty walking and confusion; Denies: frequent falls Medications/Allergies Home Medications Medication Instructions Recorded Confirmed Last Taken Type famotidine 20 mg tablet 20 mg PO BID 90 Days #180 tab 03/04/20 07/16/20 07/07/20 Rx aspirin 325 mg tablet 325 mg PO DAILY 04/07/20 07/16/20 07/07/20 History sulindac 200 mg tablet 200 mg PO BID #60 tab 05/25/20 07/16/20 07/07/20 Rx omeprazole 20 mg PO DAILY 07/08/20 07/16/20 07/07/20 History ondansetron HCl [Zofran] 4 mg PO Q8H PRN 07/08/20 07/16/20 Unknown History cyanocobalamin (vitamin B-12) 500 mcg PO DAILY #30 tab 07/10/20 07/16/20 Unknown Rx [Vitamin B-12] folic acid 1 mg PO BID #60 tab 07/10/20 07/16/20 Unknown Rx mirtazapine 15 mg PO BEDTIME #30 tab 07/10/20 07/16/20 Unknown Rx nutritional supplements [Ensure See Rx Instructions .ROUTE 07/10/20 07/16/20 Unknown Rx Pudding] .COMPLEX #452 gm olanzapine 2.5 mg PO QAM #30 tab 07/10/20 07/16/20 Unknown Rx megestrol 400 mg/10 mL (40 mg/mL) 400 mg PO DAILY #240 ml 07/13/20 07/16/20 Unknown Rx oral suspension cephalexin 500 mg PO BID 07/16/20 07/16/20 Unknown History Allergies Allergy/AdvReac Type Severity Reaction Status Date / Time Penicillins Allergy ALGY-Hives Verified 06/29/20 09:02 PFSH Acute PFSH: Medical History (Updated 07/16/20 @ 23:04 by Kay Pineda MD) Early onset Alzheimer's dementia Enrolled in chronic care management GERD (gastroesophageal reflux disease) Hypertension Osteoarthritis Osteoporosis Surgical History History of cholecystectomy History of tonsillectomy History of total knee replacement (TKR) Family History Denies family history of Chronic kidney disease (CKD) Cancer Social History (Updated 07/16/20 @ 16:03 by Kay Pineda MD) Smoking and tobacco status: never smoked Alcohol intake: never Lives independently: No Household members: spouse Housing: House Marital status: Vitals/I&O/Wt Last Vital Signs Temp 98.7 F 07/16/20 14:47 Pulse 95 07/16/20 14:47 Resp 16 07/16/20 14:47 BP 130/82 07/16/20 14:47 Pulse Ox 98 07/16/20 14:47 07/16/20 07/16/20 07/16/20 06:59 14:59 22:59 Intake Total 200 / 200 Balance 200 / 200 Weight last 48 hrs Weight 54.431 kg Physical Exam Const: COMMON NORMALS: no acute distress and alert GENERAL APPEARANCE: cooperative, comfortable, frail appearing and appears older than stated age NUTRITIONAL APPEARANCE: thin ORIENTATION/CONSCIOUSNESS: Yes awake, Yes oriented to person and Yes oriented to place HENMT: COMMON NORMALS: normocephalic, atraumatic and hearing grossly normal bilaterally HEAD & SCALP: normocephalic and atraumatic MOUTH: moist mucous membranes abnormal (noted medication residue on lips) Details: parched TEETH & GINGIVA: Yes caries and Yes poor dentition Eye: COMMON NORMALS: Equal, round and reactive pupils present, EOMs intact bilaterally and conjunctivae normal CONJUNCTIVA: Yes conjunctivae normal PUPIL: Yes Equal, round and reactive pupils present Neck/C-Spine: COMMON NORMALS: full ROM GENERAL: Yes normal visual inspection and Yes trachea midline Resp: COMMON NORMALS: normal respiratory effort, No retractions, No use of accessory muscles and clear to auscultation bilaterally EFFORT & INSPECTION: Yes able to speak in complete sentences, Yes symmetric chest movement and No tachypneic AUSCULTATION: clear to auscultation bilaterally Cardio: COMMON NORMALS: regular rate, regular rhythm, S1 normal heart sound present, S2 normal heart sound present and No murmurs present (Cardio) RATE: regular rate RHYTHM: regular rhythm HEART SOUNDS: S1 normal heart sound present and S2 normal heart sound present GI: COMMON NORMALS: Normal to inspection, nondistended, normoactive bowel sounds present, Soft to palpation and non-tender PALPATION: Yes Soft to palpation Extremity: COMMON NORMALS: normal to inspection and full ROM GENERAL: Yes edema (non-pitting edema of bilateral LEs) Neuro: COMMON NORMALS: moves all extremities, no focal motor deficits and no sensory deficits noted SENSORIUM/ORIENTATION: Yes alert, Yes oriented to person and Yes oriented to place Psych: COMMON NORMALS: mental status grossly normal, Normal thought process present, cooperative, normal affect and speech normal SPEECH: Yes normal speech THOUGHT PROCESS: Normal thought process present Skin: COMMON NORMALS: no jaundice, no petechiae and no mottling NARRATIVE SKIN EXAM: -scattered bruising on bilateral LEs Data : 07/16/20 10:46 07/16/20 10:55 Micro: Microbiology 07/16/20 10:50 Blood Culture - Preliminary Blood SPECIMEN COLLECTED 07/16/20 10:46 Blood Culture - Preliminary Blood SPECIMEN COLLECTED A&P Assessment and plan (1) Acute cystitis: -UA indicative of infection -f/u urine cx, previous urine cx (07/08) contaminated -will treat with ciprofloxacin due to PCN allergy -UTI is likely contributing to generalized weakness -prior imaging done on 07/09 showed mild to moderate left hydronephrosis, significant left periureteral enhancement and thickening in the proximal ureter, cannot exclude neoplastic changes; suspicion for mild diffuse colitis and noted multiple osteoporotic compression fractures -will place Theodore catheter for decompression and accurate Is & Os -order US to re-assess hydronephrosis Status: Acute Qualifiers: Hematuria presence: with hematuria Qualified Code(s): N30.01 - Acute cystitis with hematuria (2) Hypertension: -monitor vital signs Status: Chronic Qualifiers: Hypertension type: essential hypertension Qualified Code(s): I10 - Essential (primary) hypertension (3) RAFAEL (acute kidney injury): -likely secondary to dehydration from poor oral intake -gentle IVF hydration -monitor renal function, avoid nephrotoxins, renally dose meds -has underlying CKD stage 2, baseline Cr wnl Status: Acute (4) Thrombocytopenia: -baseline platelet count wnl -continue to monitor Status: Acute (5) Acute dehydration: -secondary to poor oral intake -IVF hydration -encourage oral intake Status: Acute (6) Generalized weakness: -likely multifactorial given anorexia, physical deconditioning, UTI -strict fall precautions, PT/OT evaluations Status: Acute Additional A&P Information -Dementia, likely vascular dementia. Evaluated by psychiatry during last admission, meds adjusted -Anorexia with at least moderate protein-calorie malnutrition: BMI-21 kg/m2: mechanical soft diet with Ensure supplementation. declined feeding tube placement, SNF placement -GERD: resume PPI -T.bili elevation, previously noted, imaging negative for obstructive or biliary process -Dispo: home, lives with , has HH services through [facility] [place] -Code status: DNI; ok with CPR. Hospice has been discussed as an option previously the patient deferred this to PCP who recommended continued management unless patient continues to decompensate at which point hospice can be rediscussed. Attestations Medical Necessity Statement*: Manda Crystal's hospital stay will require greater than 2 midnights for treatment of UTI, generalized weakness, dehydration and RAFAEL. Time Spent in Patient Care: Greater than 35 minutes (>than 50% of time spent in counselling and/or direct pt care on unit). Coding Level of Care Code Acute Bioengineer for Chg Fwd Diagnoses Acute cystitis N30.01 Hematuria presence: with hematuria Hypertension I10 Hypertension type: essential hypertension RAFAEL (acute kidney injury) N17.9 Thrombocytopenia D69.6 Acute dehydration E86.0 Generalized weakness R53.1
--- NOTE | 2020-07-16 15:54 | ECG_ITS ---
[facility] Test Date: 2020-07-16 Pat Name: Manad Crystal Department: Room: 251 Gender: Female Enrollment Services Dean: : 1945 Requested By: Jayro Cintron Order Number: [id number] Heidy MD: Domonique Simms M.D. Measurements Intervals [place] Rate: 80 P: 59 UT: 153 QRS: 2 QRSD: 79 T: 101 QT: 433 QTc: 500 Interpretive Statements SINUS RHYTHM MODERATE T-WAVE ABNORMALITY, CONSIDER LATERAL ISCHEMIA [-0.1+ mV T WAVE IN I/aVL/V5/V6] MODERATE T-WAVE ABNORMALITY, CONSIDER INFERIOR ISCHEMIA [-0.1+ mV T WAVE IN II/aVF] WARNING: DATA QUALITY MAY AFFECT INTERPRETATION Compared to ECG 07/16/2020 12:11:13 No significant changes Electronically Signed On 07-16-2020 21:43:15 CDT by Domonique Simms M.D. [id number]
[2020-07-16] MEDS: enoxaparin 40 mg/0.4 mL Syringe SUBCUT (16:17)
[2020-07-16 19:11] LABS: Troponin 5 6HR 42.51 ng/L (0-10)
[2020-07-16 19:32] LABS: Troponin 5 6HR Delta -1.49 ng/L (0-12)
[2020-07-17] MEDS: ciprofloxacin 400 MG/200 ML PREMIX 100 MG IV ×2 (03:33→11:39)
[2020-07-17 04:00] VITALS: BP 135/72; PULSE 73; RESP 17; TEMP 36.9; O2SAT 96
[2020-07-17 06:01] LABS: Basophils # 0.1 10^3/uL (0.0-0.1); Eosinophils # 0.6 10^3/uL (0.0-0.8); Eosinophils % 6.2 %; Hematocrit 29.1 % (37.0-47.0); Hemoglobin 9.9 g/dL (11.5-15.3); Lymphocytes % 9.3 %; Mean Corpuscular Hemoglobin 31.5 pg (28.0-34.0); Mean Corpuscular Volume 92.7 fL (81-99); Mean Platelet Volume 12.5 fL (7.4-10.4); Monocytes # 0.9 10^3/uL (0.2-0.9); Monocytes % 8.3 %; Neutrophils # 7.49 10^3/uL (1.8-7.7); Neutrophils % 73.6 %; Nucleated Red Blood Cells % 0 %; Platelet Count 195 10^3/cmm (130-400); Red Blood Count 3.14 10^6/uL (4.1-5.3); Red Cell Distribution Width 17.2 % (12.1-15.1); White Blood Count 10.2 10^3/uL (4.0-10.0)
[2020-07-17 06:29] LABS: Magnesium 1.6 mg/dL (1.7-2.3); Phosphorus 2.3 mg/dL (2.5-4.5)
[2020-07-17 06:33] LABS: Blood Urea Nitrogen 20 mg/dL (8-23); Calcium 8.1 mg/dL (8.5-10.5); Carbon Dioxide 19 mmol/L (22-29); Chloride 106 mmol/L (98-107); Creatinine Clr Calc Pharmacy 52.3651; Glucose 86 mg/dL (65-115); Osmolality Calculated 286 mOsm/kg (285-295); Sodium 137 mmol/L (136-145)
[2020-07-17 06:34] LABS: Anion Gap 15.4 (5-19); Potassium 3.4 mmol/L (3.5-5.1)
--- NOTE | 2020-07-17 07:00 | US_ITS ---
WS: [id number] RENAL ULTRASOUND URINARY BLADDER ULTRASOUND HISTORY: evaluate for hydronephrosis COMPARISON: None available. TECHNIQUE: 2-D and color Doppler imaging of the kidney submitted. Right kidney: 11.7 cm x 3.4 cm x 4.3 cm. Normal echogenicity with no hydronephrosis or mass. Left kidney: 9.3 cm x 3.4 cm x 3.9 cm. Poorly visualized kidney. Kidney was obstructed on a recent CT of 07/09/2020 due to renal stone. Renal pelvis is not well visualized. Aorta: Normal. Urinary Bladder: Nondistended with Theodore catheter present. US/US renal BI with bladder IMPRESSION: 1. Negative RIGHT kidney. 2. Poorly visualized LEFT kidney. Cannot confirm hydronephrosis seen on the rec ent CT has resolved.
[2020-07-17 07:12] VITALS: BP 171/69; PULSE 79; RESP 18; TEMP 37; O2SAT 98
--- NOTE | 2020-07-17 07:37 | PM.PN ---
Subjective Subjective: Interval history: Had 450 mL urine output overnight, has Theodore catheter in place. Hemodynamically stable, afebrile. Labs improved including resolved thrombocytopenia, decreasing leukocytosis, drop in Hg likely dilutional. Electrolytes replaced. Remains confused, minimal intake orally today. Medications: Reviewed: Yes Medication Review Details: Active Medications Generic Name Dose Route Start Last Admin Trade Name Freq PRN Reason Stop Dose Admin Acetaminophen 650 mg 07/16/20 15:47 Tylenol PO Q6H PRN Mild/Mod Pain Or Temp >/= 101 Aspirin 325 mg 07/17/20 09:00 Aspirin PO DAILY LATONIA Cyanocobalamin 500 mcg 07/17/20 09:00 Vitamin B-12 PO DAILY LATONIA Enoxaparin Sodium 40 mg 07/16/20 16:00 07/16/20 16:17 Lovenox SUBCUT 40 mg Q24H LATONIA Administration Potassium Chloride /Dextrose/Sod Cl 20 meq in 1,000 m ls @ 100 mls/hr 07/16/20 14:47 07/16/20 15:29 D5-Ns 0.45% + Vincenzo l 20 Meq IV 125 mls/hr .Q10H LATONIA Administration Ciprofloxacin/Dext pratibha 400 mg in 200 mls @ 200 mls/hr 07/16/20 23:00 07/17/20 03:33 Cipro IV 100 mls/hr Q12H LATONIA Administration Protocol Magnesium Sulfate 2 gm in 50 mls @ 50 mls/hr 07/17/20 07:34 Magnesium Sulfat e Premix IV 07/17/20 08:33 ONCE ONE Megestrol Acetate 400 mg 07/17/20 09:00 Megace Oral Susp PO DAILY [facility] Mirtazapine 15 mg 07/17/20 21:00 Remeron PO BEDTIME LATONIA Olanzapine 2.5 mg 07/17/20 21:00 Zyprexa PO BEDTIME LATONIA Ondansetron HCl 4 mg 07/16/20 15:47 Zofran IVP Q6H PRN vomiting, or N/V if npo Pantoprazole Sodiu m 40 mg 07/17/20 09:00 Protonix PO DAILY [facility] Potassium Chloride 40 meq 07/17/20 07:34 Klor-Con 10 PO 07/17/20 07:35 ONCE ONE Potassium Phosphat e 250 mg 07/17/20 09:00 Phospha 250 Neut ral PO BID LATONIA Penicillins Allergy (Verified 06/29/20 09:02) ALGY-Hives Vitals/I&O/Wt Last Vital Signs Temp 98.6 F 07/17/20 07:12 Pulse 79 07/17/20 07:12 Resp 18 07/17/20 07:12 BP 171/69 07/17/20 07:12 Pulse Ox 98 07/17/20 07:12 07/16/20 07/17/20 07/17/20 22:59 06:59 14:59 Intake Total 340 / 540 Output Total 450 / 450 Balance 340 / 540 -450 / 90 Weight last 48 hrs Weight 54.431 kg Physical Exam Const: COMMON NORMALS: no acute distress and alert GENERAL APPEARANCE: cooperative, comfortable, frail appearing and appears older than stated age NUTRITIONAL APPEARANCE: thin ORIENTATION/CONSCIOUSNESS: Yes awake and Yes confused HENMT: COMMON NORMALS: normocephalic, atraumatic and hearing grossly normal bilaterally HEAD & SCALP: normocephalic and atraumatic MOUTH: moist mucous membranes abnormal (noted medication residue on lips) Details: parched TEETH & GINGIVA: Yes caries and Yes poor dentition Eye: COMMON NORMALS: Equal, round and reactive pupils present, EOMs intact bilaterally and conjunctivae normal CONJUNCTIVA: Yes conjunctivae normal PUPIL: Yes Equal, round and reactive pupils present Neck/C-Spine: COMMON NORMALS: full ROM GENERAL: Yes normal visual inspection and Yes trachea midline Resp: COMMON NORMALS: normal respiratory effort, No retractions, No use of accessory muscles and clear to auscultation bilaterally EFFORT & INSPECTION: Yes able to speak in complete sentences, Yes symmetric chest movement and No tachypneic AUSCULTATION: clear to auscultation bilaterally Cardio: COMMON NORMALS: regular rate, regular rhythm, S1 normal heart sound present, S2 normal heart sound present and No murmurs present (Cardio) RATE: regular rate RHYTHM: regular rhythm HEART SOUNDS: S1 normal heart sound present and S2 normal heart sound present GI: COMMON NORMALS: Normal to inspection, nondistended, normoactive bowel sounds present, Soft to palpation and non-tender PALPATION: Yes Soft to palpation Extremity: COMMON NORMALS: normal to inspection and full ROM GENERAL: Yes edema (non-pitting edema of bilateral LEs) Neuro: COMMON NORMALS: moves all extremities, no focal motor deficits and no sensory deficits noted SENSORIUM/ORIENTATION: Yes alert and Yes Orientation impaired Psych: COMMON NORMALS: mental status grossly normal, Normal thought process present, cooperative, normal affect and speech normal SPEECH: Yes normal speech THOUGHT PROCESS: Normal thought process present Skin: COMMON NORMALS: no jaundice, no petechiae and no mottling NARRATIVE SKIN EXAM: -scattered bruising on bilateral LEs and UEs Urinary Catheter Management^: Theodore: Cath Placed During This Visit: yes Reason for Continuing Indwelling Catheter: Acute Urinary Retention or Obstruction Urinary Catheter Date of Insertion: 07/16/20 Urinary Catheter Time of Insertion: 16:43 Data : 07/17/20 05:10 07/17/20 05:10 Micro: Microbiology 07/16/20 10:50 Blood Culture - Preliminary Blood SPECIMEN COLLECTED 07/16/20 10:46 Blood Culture - Preliminary Blood SPECIMEN COLLECTED A&P Assessment and plan (1) Acute cystitis: -UA indicative of infection -urine cx-prelim negative, previous urine cx (07/08) contaminated -will treat with ciprofloxacin due to PCN allergy -UTI is likely contributing to generalized weakness -prior imaging done on 07/09 showed mild to moderate left hydronephrosis, significant left periureteral enhancement and thickening in the proximal ureter, cannot exclude neoplastic changes; suspicion for mild diffuse colitis and noted multiple osteoporotic compression fractures -will place Theodore catheter for decompression and accurate Is & Os -unable to assess for hydronephrosis with US due to poor visualization of L kidney Status: Acute Qualifiers: Hematuria presence: with hematuria Qualified Code(s): N30.01 - Acute cystitis with hematuria (2) Acute dehydration: -secondary to poor oral intake -IVF hydration -encourage oral intake Status: Acute (3) Generalized weakness: -likely multifactorial given anorexia, physical deconditioning, UTI -strict fall precautions, PT/OT evaluations appreciated Status: Acute (4) Hypertension: -continue to monitor vital signs Status: Chronic Qualifiers: Hypertension type: essential hypertension Qualified Code(s): I10 - Essential (primary) hypertension (5) RAFAEL (acute kidney injury): -likely secondary to dehydration from poor oral intake -gentle IVF hydration -renal function normalized, avoid nephrotoxins, renally dose meds -has underlying CKD stage 2, baseline Cr wnl Status: Resolved (6) Thrombocytopenia: -baseline platelet count wnl -likely lab error given normalization today Status: Resolved Additional A&P Information -Dementia, likely vascular dementia. Evaluated by psychiatry during last admission, meds adjusted -Anorexia with at least moderate protein-calorie malnutrition: BMI-21 kg/m2: mechanical soft diet with Ensure supplementation. declined feeding tube placement, SNF placement -GERD: continue PPI -T.bili elevation, previously noted, imaging negative for obstructive or biliary process -Hypomagnesemia, hypophosphatemia; replace as needed -Osteoporotic compression fractures noted on imaging, check vitamin D levels, will likely need replacement; high fall risk so needs strict fall precautions -Dispo: home, lives with , has services through [facility] -Code status: DNI; ok with CPR. Hospice has been discussed as an option previously the patient deferred this to PCP who recommended continued management unless patient continues to decompensate at which point hospice can be rediscussed. Attestations Medical Necessity Statement*: Patient requires hospitalization for continued management of UTI on IV antibiotics, dehydration and anorexia with electrolyte abnormalities, on IVF hydration. Time Spent in Patient Care: 16 - 35 minutes (>than 50% of time spent in counselling and/or direct pt care on unit). 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
[2020-07-17] MEDS: magnesium sulfate premix 2 GM/50 ML PIGGYBACK IV (09:51)
[2020-07-17] MEDS: potassium chloride ER 10 mEq Tablet 40 MEQ PO (09:51)
[2020-07-17] MEDS: phosphorus 250 mg Tablet PO ×2 (09:54→16:09)
[2020-07-17] MEDS: cyanocobalamin 1,000 mcg Tablet 500 MCG PO (09:54)
[2020-07-17] MEDS: pantoprazole DR 40 mg Tablet PO (09:55)
[2020-07-17] MEDS: aspirin 325 mg Tablet PO (09:55)
[2020-07-17] MEDS: megestrol 400 mg/10 mL UDC PO (09:55)
[2020-07-17] MEDS: folic acid 1 mg Tablet PO (09:55)
[2020-07-17] MEDS: multivitamin therapeutic Tablet 1 TAB PO (10:03)
[2020-07-17] MEDS: D5-NS 0.45% + KCL 20 mEq 20 MEQ/1,000 ML BAG 125 MEQ IV ×2 (11:39→11:55)
[2020-07-17 12:00] VITALS: BP 86/55; PULSE 71; RESP 18; TEMP 36.3; O2SAT 94
--- NOTE | 2020-07-17 14:45 | PC.NURSE ---
Held Patients 1800 Senna due to large bowel movement today. SMW, HOME HEALTH LVN
--- NOTE | 2020-07-17 14:53 | PC.CHAP ---
Pastoral Care Encounter/Spiritual Assessment Type of Contact [] Declined fruit receiver visit [] Patient/Family/Request visit [] Outpatient visit [] Follow-up visit [] Physician referral [] Code/Alert [] Routine visit [] Staff referral [] Actively dying [] Patient sleeping [] Family support [] [] Out of room [] Palliative care [] [] Receiving care in room [] Pre-surgical visit [] Trauma [] Long length of stay [] ICU visit [x] Other:Precautions Relational/Emotional Strength [] Patient feels connected with others/family/visitors/staff [] Distress [] Loneliness/isolation [] Abandonment Spirituality of Patient [] Person of Jenae [] Attends Mormonism of their Jenae [] Believes in Prayer [] Reads Bible or Caodaism materials [] There are Spiritual issues to be addressed Clinical Project Manager Interventions [] Prayer [] Active listening [] Non-anxious presence [] Spiritual/emotional support [] Crisis/trauma care [] Spiritual counseling [] Bereavement support [] Provided bereavement packet [] Provided Bible/devotional materials [] Provided toy/stuffed animal, coloring book to patient or family member [] Provided Communion [] Anointing/[place] [] Salvation [] Completed spiritual assessment [] Other: Impact on Illness or Injury [] Angry [] Fearful [] Anxious [] Often cries [] Exhaustion [] Unable to work [] Unable to attend mandaen [] Unable to walk/stand [] Unable to read [] Unable to drive [] Unable to eat/drink [] Unable to sleep [] Unable to be with family [] Patient intubated [] Other: Summary Patient room under precautions. Time spent with patient 3 minutes
[2020-07-17 15:51] VITALS: BP 95/57; PULSE 75; RESP 18; TEMP 36.9; O2SAT 96
[2020-07-17] MEDS: enoxaparin 40 mg/0.4 mL Syringe SUBCUT (16:09)
[2020-07-17 19:30] VITALS: BP 116/64; PULSE 89; RESP 17; TEMP 36.7; O2SAT 97
[2020-07-17] MEDS: mirtazapine 15 mg Tablet PO (20:49)
[2020-07-17] MEDS: OLANZapine 5 mg TABLET 2.5 MG PO (20:49)
[2020-07-18] VITALS (7 sets, daily range): BP systolic 93–134; BP diastolic 52–63; PULSE 70–102; RESP 18–21; TEMP 36.4–37.1; O2SAT 94–99
[2020-07-18] MEDS: D5-NS 0.45% + KCL 20 mEq 20 MEQ/1,000 ML BAG 125 MEQ IV (00:49)
[2020-07-18] MEDS: ciprofloxacin 400 MG/200 ML PREMIX 100 MG IV (00:52)
[2020-07-18 06:20] LABS: Basophils # 0.1 10^3/uL (0.0-0.1); Basophils % 0.7 %; Eosinophils # 0.6 10^3/uL (0.0-0.8); Eosinophils % 6.9 %; Hematocrit 30.2 % (37.0-47.0); Hemoglobin 9.7 g/dL (11.5-15.3); Lymphocytes # 0.4 10^3/uL (0.8-4.8); Lymphocytes % 4.6 %; Mean Corpuscular HGB Conc 32.1 g/dL (30.0-36.0); Mean Corpuscular Hemoglobin 30.9 pg (28.0-34.0); Mean Corpuscular Volume 96.2 fL (81-99); Mean Platelet Volume 12.5 fL (7.4-10.4); Monocytes # 0.7 10^3/uL (0.2-0.9); Monocytes % 7.2 %; Neutrophils # 7.02 10^3/uL (1.8-7.7); Neutrophils % 76.7 %; Nucleated Red Blood Cells % 0 %; Platelet Count 213 10^3/cmm (130-400); Red Blood Count 3.14 10^6/uL (4.1-5.3); Red Cell Distribution Width 17.8 % (12.1-15.1); White Blood Count 9.2 10^3/uL (4.0-10.0)
[2020-07-18 06:55] LABS: Alanine Aminotransferase 25 U/L (0-33); Albumin Level 2.6 g/dL (3.5-5.2); Alkaline Phosphatase 116 IU/L (35-105); Aspartate Amino Transferase 36 U/L (0-32); Blood Urea Nitrogen 10 mg/dL (8-23); Calcium 8.6 mg/dL (8.5-10.5); Carbon Dioxide 19 mmol/L (22-29); Chloride 110 mmol/L (98-107); Globulin 1.3 g/dL (1.3-4.6); Glucose 79 mg/dL (65-115); Osmolality Calculated 288 mOsm/kg (285-295); Sodium 140 mmol/L (136-145); Total Protein 3.9 g/dL (6.6-8.7)
[2020-07-18] MEDS: cyanocobalamin 1,000 mcg Tablet 500 MCG PO (08:07)
[2020-07-18] MEDS: phosphorus 250 mg Tablet PO ×2 (08:07→17:18)
[2020-07-18] MEDS: pantoprazole DR 40 mg Tablet PO (08:07)
[2020-07-18] MEDS: aspirin 325 mg Tablet PO (08:07)
[2020-07-18] MEDS: megestrol 400 mg/10 mL UDC PO (08:07)
[2020-07-18] MEDS: folic acid 1 mg Tablet PO (08:07)
[2020-07-18] MEDS: sennosides-docusate Tablet 1 TAB PO ×2 (08:07→17:18)
[2020-07-18] MEDS: multivitamin therapeutic Tablet 1 TAB PO (08:07)
--- NOTE | 2020-07-18 08:07 | PM.PN ---
Subjective Subjective: Interval history: Hemodynamically stable, afebrile, had 900 mL urine output, labs stable. Appetite remains minimal. Mg wnl, phosphorus remains low. Quite confused this AM, trying to feed herself but spilled her Ensure and grits all over her tray and bed. Medications: Reviewed: Yes Medication Review Details: Active Medications Generic Name Dose Route Start Last Admin Trade Name Freq PRN Reason Stop Dose Admin Acetaminophen 650 mg 07/16/20 15:47 Tylenol PO Q6H PRN Mild/Mod Pain Or Temp >/= 101 Aspirin 325 mg 07/17/20 09:00 07/17/20 09:55 Aspirin PO 325 mg DAILY LATONIA Administration Cyanocobalamin 500 mcg 07/17/20 09:00 07/17/20 09:54 Vitamin B-12 PO 500 mcg DAILY LATONIA Administration Enoxaparin Sodium 40 mg 07/16/20 16:00 07/17/20 16:09 Lovenox SUBCUT 40 mg Q24H LATONIA Administration Folic Acid 1 mg 07/17/20 09:00 07/17/20 09:55 Folic Acid PO 1 mg DAILY LATONIA Administration Potassium Chloride /Dextrose/Sod Cl 20 meq in 1,000 m ls @ 100 mls/hr 07/16/20 14:47 07/18/20 00:49 D5-Ns 0.45% + Vincenzo l 20 Meq IV 125 mls/hr .Q10H LATONIA Administration Ciprofloxacin/Dext pratibha 400 mg in 200 mls @ 200 mls/hr 07/16/20 23:00 07/18/20 00:52 Cipro IV 100 mls/hr Q12H LATONIA Administration Protocol Megestrol Acetate 400 mg 07/17/20 09:00 07/17/20 09:55 Megace Oral Susp PO 400 mg DAILY LATONIA Administration Mirtazapine 15 mg 07/17/20 21:00 07/17/20 20:49 Remeron PO 15 mg BEDTIME LATONIA Administration Multivitamins Ther apeutic 1 tab 07/17/20 09:00 07/17/20 10:03 Multivitamin Tab PO 1 tab DAILY LATONIA Administration Olanzapine 2.5 mg 07/17/20 21:00 07/17/20 20:49 Zyprexa PO 2.5 mg BEDTIME LATONIA Administration Ondansetron HCl 4 mg 07/16/20 15:47 Zofran IVP Q6H PRN vomiting, or N/V if npo Pantoprazole Sodiu m 40 mg 07/17/20 09:00 07/17/20 09:55 Protonix PO 40 mg DAILY LATONIA Administration Potassium Phosphat e 250 mg 07/17/20 09:00 07/17/20 16:09 Phospha 250 Neut ral PO 250 mg BID LATONIA Administration Senna/Docusate Sod ium 1 tab 07/17/20 18:00 07/17/20 16:08 Senna-S PO Not Given BID LATONIA Penicillins Allergy (Verified 06/29/20 09:02) ALGY-Hives Vitals/I&O/Wt Last Vital Signs Temp 98.0 F 07/18/20 08:00 Pulse 84 07/18/20 08:00 Resp 18 07/18/20 08:00 BP 93/52 07/18/20 08:00 Pulse Ox 99 07/18/20 08:00 07/17/20 07/18/20 07/18/20 22:59 06:59 14:59 Intake Total 1000 / 1713.333 30 / 30 Output Total 425 / 425 900 / 1325 Balance 575 / 1288.333 -900 / 388.333 30 / 30 Weight last 48 hrs Weight 56.245 kg Weight 57.924 kg Weight 54.431 kg Physical Exam Const: COMMON NORMALS: no acute distress and alert GENERAL APPEARANCE: cooperative, comfortable, frail appearing and appears older than stated age NUTRITIONAL APPEARANCE: thin ORIENTATION/CONSCIOUSNESS: Yes awake and Yes confused HENMT: COMMON NORMALS: normocephalic, atraumatic and hearing grossly normal bilaterally HEAD & SCALP: normocephalic and atraumatic MOUTH: moist mucous membranes abnormal (noted medication residue on lips) Details: parched TEETH & GINGIVA: Yes caries and Yes poor dentition Eye: COMMON NORMALS: Equal, round and reactive pupils present, EOMs intact bilaterally and conjunctivae normal CONJUNCTIVA: Yes conjunctivae normal PUPIL: Yes Equal, round and reactive pupils present Neck/C-Spine: COMMON NORMALS: full ROM GENERAL: Yes normal visual inspection and Yes trachea midline Resp: COMMON NORMALS: normal respiratory effort, No retractions, No use of accessory muscles and clear to auscultation bilaterally EFFORT & INSPECTION: Yes able to speak in complete sentences, Yes symmetric chest movement and No tachypneic AUSCULTATION: clear to auscultation bilaterally Cardio: COMMON NORMALS: regular rate, regular rhythm, S1 normal heart sound present, S2 normal heart sound present and No murmurs present (Cardio) RATE: regular rate RHYTHM: regular rhythm HEART SOUNDS: S1 normal heart sound present and S2 normal heart sound present GI: COMMON NORMALS: Normal to inspection, nondistended, normoactive bowel sounds present, Soft to palpation and non-tender PALPATION: Yes Soft to palpation Extremity: COMMON NORMALS: normal to inspection and full ROM GENERAL: Yes edema (non-pitting edema of bilateral LEs) Neuro: COMMON NORMALS: moves all extremities, no focal motor deficits and no sensory deficits noted SENSORIUM/ORIENTATION: Yes alert and Yes Orientation impaired Psych: COMMON NORMALS: mental status grossly normal, Normal thought process present, cooperative, normal affect and speech normal SPEECH: Yes normal speech THOUGHT PROCESS: Normal thought process present Skin: COMMON NORMALS: no jaundice, no petechiae and no mottling NARRATIVE SKIN EXAM: -scattered bruising on bilateral LEs and UEs Urinary Catheter Management^: Theodore: Cath Placed During This Visit: yes Reason for Continuing Indwelling Catheter: Acute Urinary Retention or Obstruction Urinary Catheter Date of Insertion: 07/16/20 Urinary Catheter Time of Insertion: 16:43 Data : 07/18/20 05:23 07/18/20 05:23 Micro: Microbiology 07/16/20 10:50 Blood Culture - Preliminary Blood NEGATIVE TO DATE 07/16/20 10:46 Blood Culture - Preliminary Blood NEGATIVE TO DATE 07/16/20 14:10 Urine Culture - Preliminary Urine,Clean Catch A&P Assessment and plan (1) Acute cystitis: -UA indicative of infection -urine cx-prelim negative, previous urine cx (07/08) contaminated -d/c abx given negative urine cx -UTI is likely contributing to generalized weakness -prior imaging done on 07/09 showed mild to moderate left hydronephrosis, significant left periureteral enhancement and thickening in the proximal ureter, cannot exclude neoplastic changes; suspicion for mild diffuse colitis and noted multiple osteoporotic compression fractures -will place Theodore catheter for decompression and accurate Is & Os -unable to assess for hydronephrosis with US due to poor visualization of L kidney Status: Acute Qualifiers: Hematuria presence: with hematuria Qualified Code(s): N30.01 - Acute cystitis with hematuria (2) Acute dehydration: -secondary to poor oral intake -d/c IVF hydration -encourage oral intake Status: Acute (3) Generalized weakness: -likely multifactorial given anorexia, physical deconditioning, UTI -strict fall precautions, PT/OT evaluations appreciated Status: Acute (4) Hypertension: -continue to monitor vital signs Status: Chronic Qualifiers: Hypertension type: essential hypertension Qualified Code(s): I10 - Essential (primary) hypertension (5) RAFAEL (acute kidney injury): -likely secondary to dehydration from poor oral intake -off IVF hydration -renal function normalized, avoid nephrotoxins, renally dose meds -has underlying CKD stage 2, baseline Cr wnl Status: Resolved (6) Thrombocytopenia: -baseline platelet count wnl -likely lab error given normalization today Status: Resolved Additional A&P Information -Dementia, likely vascular dementia. Evaluated by psychiatry during last admission, meds adjusted -Anorexia with at least moderate protein-calorie malnutrition: BMI-21 kg/m2: mechanical soft diet with Ensure supplementation. declined feeding tube placement, SNF placement -GERD: continue PPI -T.bili elevation, previously noted, imaging negative for obstructive or biliary process -Hypomagnesemia (resolved), hypophosphatemia; replace as needed -Osteoporotic compression fractures noted on imaging, check vitamin D levels, will likely need replacement; high fall risk so needs strict fall precautions -Dispo: home, lives with , has HH services through [facility] -Code status: DNI; ok with CPR. Hospice has been discussed as an option previously the patient deferred this to PCP who recommended continued management unless patient continues to decompensate at which point hospice can be rediscussed. Patient is making little progress particularly in terms of intake and has continued confusion due to underlying dementia which is unlikely to improve. Will need to have a re-discussion with about reconsidering hospice. Attestations Medical Necessity Statement*: Patient requires hospitalization for continued management of anorexia, pending appropriate disposition. Time Spent in Patient Care: 16 - 35 minutes (>than 50% of time spent in counselling and/or direct pt care on unit). Coding Level of Care Code Acute Dump Worker for g Fwd Exam Comprehensive Diagnoses Acute cystitis N30.01 Hematuria presence: with hematuria Acute dehydration E86.0 Generalized weakness R53.1 Hypertension I10 Hypertension type: essential hypertension RAFAEL (acute kidney injury) N17.9 Thrombocytopenia D69.6
[2020-07-18 10:12] LABS: Phosphorus 1.6 mg/dL (2.5-4.5)
[2020-07-18 10:31] LABS: 25 Hydroxy Vitamin D 5 ng/mL (30-100)
[2020-07-18] MEDS: enoxaparin 40 mg/0.4 mL Syringe SUBCUT (17:19)
[2020-07-18] MEDS: OLANZapine 5 mg TABLET 2.5 MG PO (20:51)
[2020-07-18] MEDS: mirtazapine 15 mg Tablet PO (20:51)
[2020-07-19] VITALS (7 sets, daily range): BP systolic 99–127; BP diastolic 55–74; PULSE 76–92; RESP 14–22; TEMP 36.4–37.2; O2SAT 93–98
--- NOTE | 2020-07-19 07:07 | PC.NURSE ---
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 Bladder scanned showing 0ml. Dr. Crabtree contacted and informed of low urine output, requested continuing monitoring of output and expressed that he would inform day shift physician of output.
--- NOTE | 2020-07-19 07:46 | CTR_ITS ---
PROCEDURE INFORMATION: Exam: CT Abdomen And Pelvis With Contrast Exam date and time: 07/19/2020 1:44 PM Age: 75 years old Clinical indication: Abdominal pain; Additional info: Previously noted L hydronephrosis, abnormal CT findings TECHNIQUE: Imaging protocol: Computed tomography of the abdomen and pelvis with intravenous contrast. Radiation optimization: All CT scans at this facility use at least one of these dose optimization techniques: automated exposure control; mA and/or kV adjustment per patient size (includes targeted exams where dose is matched to clinical indication); or iterative reconstruction. Contrast material: OMNI 300; Contrast volume: 75 ml; Contrast route: INTRAVENOUS (IV); COMPARISON: CT chest abd pel w con* 07/09/2020 10:15 AM RADIATION DOSE METRICS: Total DLP (mGy-cm): 275.31 FINDINGS: Lungs: Minor atelectasis lung bases posteriorly. 9 mm calcified granuloma right lower lobe posteriorly. Liver: Liver contains several calcified granulomas. Gallbladder and bile ducts: Prior cholecystectomy. Pancreas: Normal. No ductal dilation. Spleen: Nonenlarged spleen contains multiple calcified granulomas. Adrenals: Normal. No mass. Kidneys and ureters: Persistent 6 mm obstructing stone upper 3rd of left ureter. Adjacent ureteral wall enhancement appears diminished. Again stone producing mild to moderate left-sided hydroureteronephrosis. Small left renal cysts, unchanged. Largest upper pole simple appearing cyst measures 1.1 cm. Stomach and bowel: [id number] sigmoid colon diverticulosis changes. No evidence for acute diverticulitis. Appendix: No evidence of appendicitis. Intraperitoneal space: Unremarkable. No free air. No significant fluid collection. Vasculature: Unremarkable. No abdominal aortic aneurysm. Lymph nodes: Unremarkable. No enlarged lymph nodes. Urinary bladder: Theodore catheter in place with decompressed urinary bladder. Reproductive: Unremarkable as visualized. Bones/joints: Severe T12 vertebral body compression fracture and milder L3, L4 and L5 compression fractures, unchanged. Soft tissues: Unremarkable. CT/CT abdomen pelvis w con* [id number] IMPRESSION: 1.) Persistent 6 mm obstructing stone upper 3rd of left ureter. Adjacent ureteral wall enhancement appears diminished. Again stone producing mild to moderate left-sided hydroureteronephrosis. 2.) Additional chronic findings as described above. Radiation Dose CTDIVOL = (mGy): DLP = 275.31 (mGy-cm)
--- NOTE | 2020-07-19 07:51 | PM.PN ---
Subjective Subjective: Interval history: Overnight was noted to have minimal urine output, 125 mL, bladder scan done with 0 mL. Hemodynamically stable, afebrile. Will give bolus and repeat imaging; Theodore catheter remains in place. Remains quite confused, mediocre oral intake. Thinks she is at [facility]. Medications: Reviewed: Yes Medication Review Details: Active Medications Generic Name Dose Route Start Last Admin Trade Name Freq PRN Reason Stop Dose Admin Acetaminophen 650 mg 07/16/20 15:47 Tylenol PO Q6H PRN Mild/Mod Pain Or Temp >/= 101 Aspirin 325 mg 07/17/20 09:00 07/18/20 08:07 Aspirin PO 325 mg DAILY LATONIA Administration Cyanocobalamin 500 mcg 07/17/20 09:00 07/18/20 08:07 Vitamin B-12 PO 500 mcg DAILY LATONIA Administration Enoxaparin Sodium 40 mg 07/16/20 16:00 07/18/20 17:19 Lovenox SUBCUT 40 mg Q24H LATONIA Administration Folic Acid 1 mg 07/17/20 09:00 07/18/20 08:07 Folic Acid PO 1 mg DAILY LATONIA Administration Megestrol Acetate 400 mg 07/17/20 09:00 07/18/20 08:07 Megace Oral Susp PO 400 mg DAILY LATONIA Administration Mirtazapine 15 mg 07/17/20 21:00 07/18/20 20:51 Remeron PO 15 mg BEDTIME LATONIA Administration Multivitamins Ther apeutic 1 tab 07/17/20 09:00 07/18/20 08:07 Multivitamin Tab PO 1 tab DAILY LATONIA Administration Olanzapine 2.5 mg 07/17/20 21:00 07/18/20 20:51 Zyprexa PO 2.5 mg BEDTIME LATONIA Administration Ondansetron HCl 4 mg 07/16/20 15:47 Zofran IVP Q6H PRN vomiting, or N/V if npo Pantoprazole Sodiu m 40 mg 07/17/20 09:00 07/18/20 08:07 Protonix PO 40 mg DAILY LATONIA Administration Potassium Phosphat e 250 mg 07/17/20 09:00 07/18/20 17:18 Phospha 250 Neut ral PO 250 mg BID LATONIA Administration Senna/Docusate Sod ium 1 tab 07/17/20 18:00 07/18/20 17:18 Senna-S PO 1 tab BID LATONIA Administration Penicillins Allergy (Verified 06/29/20 09:02) ALGY-Hives Vitals/I&O/Wt Last Vital Signs Temp 98.5 F 07/19/20 07:16 Pulse 85 07/19/20 07:16 Resp 22 H 07/19/20 07:16 BP 127/74 07/19/20 07:16 Pulse Ox 98 07/19/20 07:16 07/18/20 07/19/20 07/19/20 22:59 06:59 14:59 Intake Total 180 / 1270 Output Total 500 / 500 25 / 525 Balance -320 / 770 -25 / 745 Weight last 48 hrs Weight 56.245 kg Weight 56.245 kg Weight 57.924 kg Physical Exam Const: COMMON NORMALS: no acute distress and alert GENERAL APPEARANCE: cooperative, comfortable, frail appearing and appears older than stated age NUTRITIONAL APPEARANCE: thin ORIENTATION/CONSCIOUSNESS: Yes awake and Yes confused HENMT: COMMON NORMALS: normocephalic, atraumatic and hearing grossly normal bilaterally HEAD & SCALP: normocephalic and atraumatic MOUTH: moist mucous membranes abnormal (noted medication residue on lips) Details: parched TEETH & GINGIVA: Yes caries and Yes poor dentition Eye: COMMON NORMALS: Equal, round and reactive pupils present, EOMs intact bilaterally and conjunctivae normal CONJUNCTIVA: Yes conjunctivae normal PUPIL: Yes Equal, round and reactive pupils present Neck/C-Spine: COMMON NORMALS: full ROM GENERAL: Yes normal visual inspection and Yes trachea midline Resp: COMMON NORMALS: normal respiratory effort, No retractions, No use of accessory muscles and clear to auscultation bilaterally EFFORT & INSPECTION: Yes able to speak in complete sentences, Yes symmetric chest movement and No tachypneic AUSCULTATION: clear to auscultation bilaterally Cardio: COMMON NORMALS: regular rate, regular rhythm, S1 normal heart sound present, S2 normal heart sound present and No murmurs present (Cardio) RATE: regular rate RHYTHM: regular rhythm HEART SOUNDS: S1 normal heart sound present and S2 normal heart sound present GI: COMMON NORMALS: Normal to inspection, nondistended, normoactive bowel sounds present, Soft to palpation and non-tender PALPATION: Yes Soft to palpation Extremity: COMMON NORMALS: normal to inspection, full ROM and no pedal edema Neuro: COMMON NORMALS: moves all extremities, no focal motor deficits and no sensory deficits noted SENSORIUM/ORIENTATION: Yes alert and Yes Orientation impaired Psych: COMMON NORMALS: mental status grossly normal, Normal thought process present, cooperative, normal affect and speech normal SPEECH: Yes normal speech THOUGHT PROCESS: Normal thought process present Skin: COMMON NORMALS: no jaundice, no petechiae and no mottling NARRATIVE SKIN EXAM: -scattered bruising on bilateral LEs and UEs Urinary Catheter Management^: Theodore: Cath Placed During This Visit: yes Reason for Continuing Indwelling Catheter: Accurate Measurement of Urinary Output in Critically Ill Patients Urinary Catheter Date of Insertion: 07/16/20 Urinary Catheter Time of Insertion: 16:43 Data : 07/18/20 05:23 07/18/20 05:23 Micro: Microbiology 07/16/20 10:30 Urine Culture - Preliminary Urine,Clean Catch 07/16/20 14:10 Urine Culture - Final Urine,Clean Catch A&P Assessment and plan (1) Acute cystitis: -UA indicative of infection -urine cx-prelim negative, previous urine cx (07/08) contaminated -d/c abx given negative urine cx -UTI is likely contributing to generalized weakness -prior imaging done on 07/09 showed mild to moderate left hydronephrosis, significant left periureteral enhancement and thickening in the proximal ureter, cannot exclude neoplastic changes; suspicion for mild diffuse colitis and noted multiple osteoporotic compression fractures. Repeat imaging in light of oliguria unchanged. Discussed with Dr. Corrales and in light of patient's lack of symptoms, normal renal function and overall clinical status conservative management is a reasonable option. She continues to have poor oral intake so we will resume gentle IV fluid hydration. -Theodore catheter in place for decompression and accurate Is & Os -unable to assess for hydronephrosis with US due to poor visualization of L kidney Status: Acute Qualifiers: Hematuria presence: with hematuria Qualified Code(s): N30.01 - Acute cystitis with hematuria (2) Acute dehydration: -secondary to poor oral intake -gentle IVF hydration -encourage oral intake Status: Acute (3) Generalized weakness: -likely multifactorial given anorexia, physical deconditioning, UTI -strict fall precautions, PT/OT evaluations appreciated Status: Acute (4) Hypertension: -continue to monitor vital signs Status: Chronic Qualifiers: Hypertension type: essential hypertension Qualified Code(s): I10 - Essential (primary) hypertension (5) RAFAEL (acute kidney injury): -likely secondary to dehydration from poor oral intake -gentle IVF hydration due to poor oral intake -renal function normalized, avoid nephrotoxins, renally dose meds -has underlying CKD stage 2, baseline Cr wnl -noted oliguria; give bolus in case dehydration still a factor as she has been off IVF since yesterday afternoon. Repeat imaging to re-evaluate for stones, hydronephrosis Status: Resolved (6) Thrombocytopenia: -baseline platelet count wnl -likely lab error given normalization today Status: Resolved Additional A&P Information -Dementia, likely vascular dementia. Evaluated by psychiatry during last admission, meds adjusted -Anorexia with at least moderate protein-calorie malnutrition: BMI-21 kg/m2: mechanical soft diet with Ensure supplementation. declined feeding tube placement, SNF placement -GERD: continue PPI -T.bili elevation, previously noted, imaging negative for obstructive or biliary process -Hypomagnesemia (resolved), hypophosphatemia; replace as needed -Osteoporotic compression fractures noted on imaging, very low vitamin D levels, start on replacement; high fall risk so needs strict fall precautions -Dispo: home, lives with , has HH services through [facility] -Code status: DNI; ok with CPR. Hospice has been discussed as an option previously the patient deferred this to PCP who recommended continued management unless patient continues to decompensate at which point hospice can be re-discussed. Patient is making little progress particularly in terms of intake and has continued confusion due to underlying dementia which is unlikely to improve. Will need to have a re-discussion with about reconsidering hospice. Tried to reach via phone, unsuccessful. Attestations Medical Necessity Statement*: Patient requires hospitalization for continued management of anorexia, with noted oliguria pending continued monitoring of urine output, repeat imaging. Time Spent in Patient Care: 16 - 35 minutes (>than 50% of time spent in counselling and/or direct pt care on unit). Coding Level of Care Code Acute Insurance Territory Manager for Chg Fwd Exam Comprehensive Diagnoses Acute cystitis N30.01 Hematuria presence: with hematuria Acute dehydration E86.0 Generalized weakness R53.1 Hypertension I10 Hypertension type: essential hypertension RAFAEL (acute kidney injury) N17.9 Thrombocytopenia D69.6
[2020-07-19] MEDS: cyanocobalamin 1,000 mcg Tablet 500 MCG PO (08:49)
[2020-07-19] MEDS: phosphorus 250 mg Tablet PO ×2 (08:49→17:56)
[2020-07-19] MEDS: aspirin 325 mg Tablet PO (08:49)
[2020-07-19] MEDS: folic acid 1 mg Tablet PO (08:50)
[2020-07-19] MEDS: ergocalciferol (vitamin D2) 50,000 Unit Capsule 50000 UNIT PO (08:50)
[2020-07-19] MEDS: multivitamin therapeutic Tablet 1 TAB PO (08:50)
[2020-07-19] MEDS: pantoprazole DR 40 mg Tablet PO (08:50)
[2020-07-19] MEDS: sennosides-docusate Tablet 1 TAB PO ×2 (08:50→17:56)
--- NOTE | 2020-07-19 08:50 | PC.SOCIAL ---
IMM Page 2 of [facility] explained to patient's daughter Joyce by phone as patient is confused. Joyce verbalizes understanding. Initialed, dated, and timed and placed in chart. Copy provided to patient's bedside.
[2020-07-19] MEDS: ciprofloxacin 400 MG/200 ML PREMIX 200 MG IV ×2 (08:52→20:20)
[2020-07-19] MEDS: sodium chloride 0.9% 500 ML IV (08:52)
[2020-07-19] MEDS: iohexol 300 mg/mL 50 mL Btl PO (13:45)
[2020-07-19] MEDS: iohexol 300 mg/mL 100 mL Btl IV (15:22)
[2020-07-19] MEDS: D5-NS 0.45% + KCL 20 mEq 20 MEQ/1,000 ML BAG 75 MEQ IV (17:56)
[2020-07-19] MEDS: enoxaparin 40 mg/0.4 mL Syringe SUBCUT (17:56)
[2020-07-20 03:40] VITALS: BP 99/61; PULSE 94; RESP 15; TEMP 37; O2SAT 95
[2020-07-20 07:13] VITALS: BP 119/70; PULSE 88; RESP 20; TEMP 37; O2SAT 95
[2020-07-20] MEDS: cyanocobalamin 1,000 mcg Tablet 500 MCG PO (08:38)
[2020-07-20] MEDS: ciprofloxacin 400 MG/200 ML PREMIX 200 MG IV ×3 (08:38→20:04)
[2020-07-20] MEDS: phosphorus 250 mg Tablet PO ×2 (08:38→19:28)
[2020-07-20] MEDS: aspirin 325 mg Tablet PO (08:39)
[2020-07-20] MEDS: multivitamin therapeutic Tablet 1 TAB PO (08:39)
[2020-07-20] MEDS: cholecalciferol (vitamin D3) 5,000 unit Tablet 5000 UNIT PO (08:39)
[2020-07-20] MEDS: pantoprazole DR 40 mg Tablet PO (08:39)
[2020-07-20] MEDS: sennosides-docusate Tablet 1 TAB PO (08:39)
[2020-07-20] MEDS: folic acid 1 mg Tablet PO (08:39)
--- NOTE | 2020-07-20 09:06 | P.PN_ITS ---
Subjective Subjective: Interval history: Manda is confused, but alert and pleasant. Medications: Reviewed: Yes Vitals/I&O/Wt Last Vital Signs Temp 98.6 F 07/20/20 07:13 Pulse 88 07/20/20 07:13 Resp 20 H 07/20/20 07:13 BP 119/70 07/20/20 07:13 Pulse Ox 95 07/20/20 07:13 07/19/20 07/20/20 07/20/20 22:59 06:59 14:59 Intake Total 301.25 / 621.25 200 / 821.25 240 / 240 Output Total 450 / 475 425 / 900 Balance -148.75 / 146.25 -225 / -78.75 240 / 240 Weight last 48 hrs Weight 56.427 kg Weight 56.245 kg Physical Exam Narrative: EXAM NARRATIVE: General exam no apparent distress Cardiovascular regular rate and rhythm with a 2/6 systolic murmur Lungs clear Abdomen is soft with positive bowel sounds Extremities no cyanosis clubbing or edema Neuro no focal deficits Urinary Catheter Management^: Theodore: Cath Placed During This Visit: yes Reason for Continuing Indwelling Catheter: Accurate Measurement of Urinary Output in Critically Ill Patients Urinary Catheter Date of Insertion: 07/16/20 Urinary Catheter Time of Insertion: 16:43 Data : 07/18/20 05:23 07/18/20 05:23 Micro: Microbiology 07/16/20 10:30 Urine Culture - Final Urine,Clean Catch A&P Assessment and plan (1) Acute cystitis: Continue ciprofloxacin considering mild left hydronephrosis, stone Conservative management currently secondary to normal renal function, overall clinical status. Theodore in place for accurate I's and O's, decompression currently Flomax not added secondary to concern of syncopal event on admit, on toilet prior to presentation Status: Acute Qualifiers: Hematuria presence: with hematuria Qualified Code(s): N30.01 - Acute cystitis with hematuria (2) Acute dehydration: Secondary to poor oral intake, which continues despite Remeron, Zyprexa Status: Acute (3) Generalized weakness: Multifactorial. Physical therapy consulted. 's main concern is his ability to manage her at home secondary to significant weakness. Status: Acute (4) Hypertension: Stable Status: Chronic Qualifiers: Hypertension type: essential hypertension Qualified Code(s): I10 - Essential (primary) hypertension (5) RAFAEL (acute kidney injury): Resolved with hydration Has underlying chronic chronic kidney disease stage II Status: Resolved (6) Thrombocytopenia: Resolved Status: Resolved Additional A&P Information Dementia. Previous evaluation by psychiatry. Limits understanding significantly. Anorexia. Poor oral intake despite multiple measures, supplementations, medications including Remeron, Zyprexa GERD, continue PPI Low vitamin D, supplement Low magnesium, phosphorus, supplement DNI, CPR okay Prognosis guarded Discussion with family today with the rehabilitation is a possibility. 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
[2020-07-20 11:25] VITALS: BP 122/68; PULSE 84; RESP 18; TEMP 36.8; O2SAT 96
[2020-07-20 16:00] VITALS: BP 122/64; PULSE 74; RESP 20; TEMP 36.8; O2SAT 97
[2020-07-20] MEDS: triamcinolone 0.5% cream 15 gm 1 APPLIC TOPICAL (16:05)
[2020-07-20] MEDS: enoxaparin 40 mg/0.4 mL Syringe SUBCUT (16:05)
[2020-07-20] MEDS: D5-NS 0.45% + KCL 20 mEq 20 MEQ/1,000 ML BAG 75 MEQ IV (16:06)
[2020-07-20 20:00] VITALS: BP 120/64; PULSE 94; RESP 20; TEMP 36.7; O2SAT 98
[2020-07-20] MEDS: mirtazapine 15 mg Tablet PO (20:04)
[2020-07-20] MEDS: OLANZapine 5 mg TABLET 2.5 MG PO (20:04)
[2020-07-20 20:43] VITALS: BP 120/64; PULSE 94; RESP 20; TEMP 36.7; O2SAT 98
[2020-07-21] VITALS: BP 102/58; PULSE 83; RESP 20; TEMP 36.8; O2SAT 99
[2020-07-21 03:43] VITALS: BP 99/62; PULSE 110; RESP 20; TEMP 36.8; O2SAT 97
[2020-07-21 07:31] VITALS: BP 116/62; PULSE 63; RESP 18; TEMP 36.6; O2SAT 97
--- NOTE | 2020-07-21 07:45 | PM.DCS ---
Discharge Providers Date of Admission: 07/16/20 13:26 Date of Discharge: July 21, 2020 Attending Provider at Admission: Kay Pineda MD Attending Provider at Discharge: Chuck Loyd MD Primary Care Provider: Rashida Bernstein MD Diagnoses at Discharge Discharge Diagnosis (1) Acute cystitis: Status: Acute Problem details: Culture ultimately was negative. However, with mild hydronephrosis as well as left ureteral stone will continue antibiotics as outpatient for a short course. (2) Acute dehydration: Status: Acute (3) Generalized weakness: Status: Acute (4) Hypertension: Status: Chronic (5) RAFAEL (acute kidney injury): Status: Resolved (6) Thrombocytopenia: Status: Resolved Reason for Visit Reason for Visit: ALOC Hospital Course Hospital Course: Manda is a 75-year-old white female with longstanding dementia, and progressive weakness over the last month. She had recently been discharged from the hospital July 10 with dehydration, decreased p.o. intake. Multiple changes in her medicine regimen to try to stimulate oral intake were made. She was readmitted on July 16 with weakness, acute kidney injury, dehydration. There was question of urinary tract infection. She had previous history of mild left hydronephrosis, and left ureteral stone. She was placed on antibiotics. Urine culture ultimately did not grow any organism. Acute kidney injury improved with hydration. Weakness continued. Extensive discussion with the patient's family occurred regarding overall prognosis. They have been offered hospice in the past secondary to her underlying dementia and poor oral intake. Ultimately they decided they did not want to pursue rehabilitation or further treatment. She was therefore discharged under hospice care. Physical Exam Narrative: EXAM NARRATIVE: General exam no apparent distress, confused but verbal Cardiovascular regular rate and rhythm without murmur Lungs clear Abdomen is soft with positive bowel sounds Extremities no cyanosis clubbing or edema Urinary Catheter Management^: Theodore: Cath Placed During This Visit: yes Reason for Continuing Indwelling Catheter: Acute Urinary Retention or Obstruction Urinary Catheter Date of Insertion: 07/16/20 Urinary Catheter Time of Insertion: 16:43 Discharge Data Data Completed and Pending: Completed Studies During Hospitalization Category Date Time Status CT abdomen pelvis w con* 28813 Rout ine Cat Scan 07/19/20 07:[address] head wo con* 7 0450 Stat Cat Scan 07/16/20 09:53 Completed XR chest 1V ailin ble 32980 Stat Exams 07/16/20 13:24 Completed US renal BI with bladder Routine Ultrasound 07/17/20 07:00 Completed Pending at discharge Category Date Time Status Blood Culture Sta t Lab 07/16/20 10:50 Results Vitals: Last Vital Signs Temp 97.8 F 07/21/20 07:31 Pulse 63 07/21/20 07:31 Resp 18 07/21/20 07:31 BP 116/62 07/21/20 07:31 Pulse Ox 97 07/21/20 07:31 Discharge Plan Discharge Patient Disposition: Hospice - Home Condition: Stable Prescriptions: New Ativan 2 mg/mL solution 1 mg SUBLINGUAL Q6H PRN (Reason: anxiety) Qty: 25 RF: 0 morphine concentrate 100 mg/5 mL (20 mg/mL) solution 5 mg PO Q3H PRN (Reason: pain) Qty: 30 RF: 0 ciprofloxacin HCl [Cipro] 500 mg tablet 500 mg PO BID Qty: 14 RF: 0 Continued aspirin 325 mg tablet 325 mg PO DAILY RF: 0 megestrol 400 mg/10 mL (40 mg/mL) suspension 400 mg PO DAILY Qty: 240 RF: 1 omeprazole 20 mg capsule,delayed release(DR/EC) 20 mg PO DAILY RF: 0 ondansetron HCl [Zofran] 4 mg tablet 4 mg PO Q8H PRN (Reason: Nausea) RF: 0 olanzapine 5 mg Tablet 2.5 mg PO QAM Qty: 30 RF: 0 cyanocobalamin (vitamin B-12) [Vitamin B-12] 1,000 mcg Tablet 500 mcg PO DAILY Qty: 30 RF: 0 folic acid 1 mg Tablet 1 mg PO BID Qty: 60 RF: 0 mirtazapine 15 mg Tablet 15 mg PO BEDTIME Qty: 30 RF: 0 Ensure Pudding Pudding See Rx Instructions .ROUTE .COMPLEX Qty: 452 RF: 0 Discontinued famotidine [Heartburn Relief (famotidine)] 20 mg tablet 20 mg PO BID 90 Days Qty: 180 RF: 3 sulindac 200 mg tablet 200 mg PO BID Qty: 60 RF: 2 cephalexin 500 mg Capsule 500 mg PO BID RF: 0 Discharge Orders: Discharge Order (Routine); Ordered 07/21/20 Ordered By: Chuck Loyd Referrals: Rashida Bernstein MD [Primary Care Provider] - 1 week Discharge Diet: Usual diet Discharge Activity: Resume usual activity Activity Restrictions/Additional Instructions: Please do not discharge until evaluated by discharge planning, and all recommendations by hospice in place. Discharge Attestations Time Spent in Discharge Care*: greater than 30 min Status at Discharge: Cognitive status at discharge: mildly impaired cognition, Behavioral status at discharge: cooperative, Quality Metrics Clinical Quality Measures During this hospital stay, did patient experience: None Coding Level of Care Code Acute [employer] Teacher for g Fwd Diagnoses Acute cystitis N30.00 Acute dehydration E86.0 Generalized weakness R53.1 Hypertension I10 RAFAEL (acute kidney injury) N17.9 Thrombocytopenia D69.6
[2020-07-21 11:29] VITALS: BP 110/68; PULSE 60; RESP 18; TEMP 36.8; O2SAT 98
--- NOTE | 2020-07-21 12:00 | PC.SOCIAL ---
IMM Updated Page 2 of IMM explained to patient's son by phone. Initialed, dated, and timed and placed back in chart. Copy provided to patient's room.
[2020-07-21] MEDS: ciprofloxacin 400 MG/200 ML PREMIX 200 MG IV (12:43)
[2020-07-21] MEDS: pantoprazole DR 40 mg Tablet PO (12:45)
[2020-07-21] MEDS: multivitamin therapeutic Tablet 1 TAB PO (12:45)
[2020-07-21] MEDS: folic acid 1 mg Tablet PO (12:45)
[2020-07-21] MEDS: cholecalciferol (vitamin D3) 5,000 unit Tablet 5000 UNIT PO (12:46)
[2020-07-21] MEDS: phosphorus 250 mg Tablet PO (12:46)
[2020-07-21] MEDS: aspirin 325 mg Tablet PO (12:46)
[2020-07-21] MEDS: cyanocobalamin 1,000 mcg Tablet 500 MCG PO (12:46)
[2020-07-21] MEDS: D5-NS 0.45% + KCL 20 mEq 20 MEQ/1,000 ML BAG 75 MEQ IV (12:47)
[2020-07-21] MEDS: sennosides-docusate Tablet 1 TAB PO (12:48)
[2020-07-21 16:00] VITALS: BP 110/68; PULSE 60; RESP 18; TEMP 36.8; O2SAT 98
[2020-07-21 19:45] VITALS: BP 110/68; PULSE 60; RESP 18; TEMP 36.8; O2SAT 98
== END 2020-07-21 15:50 | disposition hospice, home (50) | DRG 683 ==
LOC: ER 10:52 → MEDSURG 13:36
PROVIDERS: Family Medicine; Admitting Provider Family Medicine; PCP Family Medicine; Visit Provider Internal Medicine
DX: N17.9 Acute kidney failure, unspecified (principal); N30.01 Acute cystitis with hematuria; E44.0 Moderate protein-calorie malnutrition; K52.9 Noninfective gastroenteritis and colitis, unspecified; E86.0 Dehydration; N13.30 Unspecified hydronephrosis; D69.6 Thrombocytopenia, unspecified; G30.9 Alzheimer's disease, unspecified; F02.80 Dementia in other diseases classified elsewhere, unspecified severity, without behavioral disturbance, psychotic disturbance, mood disturbance, and anxiety; F01.50 Vascular dementia, unspecified severity, without behavioral disturbance, psychotic disturbance, mood disturbance, and anxiety; K21.9 Gastro-esophageal reflux disease without esophagitis; I12.9 Hypertensive chronic kidney disease with stage 1 through stage 4 chronic kidney disease, or unspecified chronic kidney disease; N18.2 Chronic kidney disease, stage 2 (mild); M19.90 Unspecified osteoarthritis, unspecified site; M48.54XD Collapsed vertebra, not elsewhere classified, thoracic region, subsequent encounter for fracture with routine healing; Z96.659 Presence of unspecified artificial knee joint; Z68.21 Body mass index [BMI] 21.0-21.9, adult; Z66 Do not resuscitate; E83.42 Hypomagnesemia; Z87.440 Personal history of urinary (tract) infections; Z87.442 Personal history of urinary calculi
CPT/HCPCS: 12345; 36415; 36600; 51702; 70450; 71045; 74177; 76770; 76857; 80048; 80051; 80053; 81001; 82306; 82810; 83690; 83735; 83986; 84100; 84484; 85025; 87040; 87077; 87086; 87186; 92526; 92610; 93005; 96372; 97110; 97161; 97167; 97530; 99283; 99284; J0696; J0744; J1650; J3475; J3490; J7030; J7040; Q9967